=== PATIENT | male | born 1975 | race Caucasian/White ===

== ENCOUNTER → 2018-04-30 14:36 | Outpatient (CLI) | payer OTHER, SELFPAY ==
[2018-04-30 17:44] LABS: Basophils # 0.2 K/mm3 (0-0.2); Eosinophils # 0.8 K/mm3 (0.0-0.4); Eosinophils % 3.5 % (0.1-12.0); Hematocrit 51.7 % (42.0-52.0); Hemoglobin 16.8 g/dL (14.1-18.0); Lymphocytes # 4.1 K/mm3 (0.7-4.5); Lymphocytes % 18.3 K/mm3 (10-50); Mean Corpuscular HGB Conc 32.4 g/dL (31.8-35.4); Mean Corpuscular Hemoglobin 29.3 pg (27.0-31.2); Mean Corpuscular Volume 90.4 fl (80-94); Mean Platelet Volume 8.8 fl (7.4-10.4); Monocytes # 1.5 K/mm3 (0.1-1.0); Monocytes % 6.4 % (1.7-9.3); Neutrophils % 70.8 % (37.0-80.0); Platelet Count 334 K/mm3 (142-424); Red Blood Count 5.72 M/mm3 (4.60-6.20); Red Cell Distribution Width 14.2 % (11.5-17.5); White Blood Count 22.6 K/mm3 (4.8-10.8)
[2018-04-30 17:48] LABS: MANUAL DIFFERENTIAL MANUAL DIFFERENTIAL (MANUAL DIFF)
[2018-04-30 18:30] LABS: Alanine Aminotransferase 46 U/L (12-78); Albumin Level 4.2 gm/dL (3.4-5.0); Alkaline Phosphatase 115 U/L (46-116); Anion Gap 13.8 mEq/L (5-15); Aspartate Amino Transferase 22 U/L (15-37); Bilirubin,Total 0.2 mg/dL (0.2-1.0); Blood Urea Nitrogen 11 mg/dL (7-18); Calcium 9.3 mg/dL (8.5-10.1); Carbon Dioxide 24 mmol/L (21.0-32.0); Chloride 105 mmol/L (98-107); Chol/HDL Ratio 5.1 (1-3.5); Cholesterol 224 mg/dL (140-200); Creatinine,Serum 0.87 mg/dL (0.70-1.30); Estimated Glomerular Filt Rate 95 ml/min (>60); Free T4 (Free Thyroxine) 1.01 ng/dl (0.76-1.46); GFR (African American) 115 ML/MIN (>60); Globulin 4.1 gm/dl (1.3-3.2); Glucose 106 mg/dL (74-106); HDL Cholesterol 44 mg/dL (27-67); LDL Cholesterol 129 mg/dL (0-130); Potassium 4.8 mmoL/L (3.5-5.1); Sodium 138 mmol/L (136-145); Thyroid Stimulating Hormone 0.67 uIU/ml (0.358-3.740); Total Protein,Serum 8.3 gm/dL (6.4-8.2); Triglycerides 255 mg/dL (30-200); VLDL Cholesterol 51 mg/dL (0-40)
[2018-04-30 18:55] LABS: Eosinophils % 8 % (0-3); Lymphocytes % 11 % (10-50); Monocytes % 7 % (2-9); Neutrophils % 73 % (42-76); Platelet Estimate Normal; RBC Morphology Normal; Total Cells Counted 100
[2018-05-02 13:13] LABS: Hep A Ab, IgM Negative (Negative); Hepatitis B Core Antibody IgM Negative (Negative); Hepatitis B Surface Antigen Negative (Negative)
[2018-05-02 17:46] LABS: Hepatitis C Antibody >11.0 s/co ratio (0.0-0.9)
[2018-05-05 06:14] LABS: Vitamin D 25 Hydroxy 23.4 ng/mL (30.0-100.0)
== END ==
PROVIDERS: Visit Provider Emergency Medicine
DX: M54.9 Dorsalgia, unspecified (principal); R53.83 Other fatigue; Z79.899 Other long term (current) drug therapy
CPT/HCPCS: 80053; 80061; 80074; 82652; 84439; 84443; 85007; 85025

== ENCOUNTER 2018-05-17 15:54 | Outpatient (RCR) | payer OTHER, SELFPAY ==
--- NOTE | 2018-05-17 18:07 | HMH.PTOPEV ---
PT Outpatient Evaluation Rehab PT Outpatient Evaluation Start: 05/17/18 16:37 Freq: Status: Active Protocol: Document 05/17/18 16:37 [email or web address] (Rec: 05/17/18 18:07 SHELBY [id number]) Electronically Signed By Sudheer Rocha PT 05/17/18 16:37 Outpatient Therapy Subjective History Subjective History This is the initial physical therapy evaluation for Lukasz Camacho. Pt is a 42 y/o male referred to PT for c/o lumbar pain. Pt reports pain in R side SIJ, low back and lateral hip. Pt reprots pain began insidiously ~ 2 -3 years ago. Pt reports seeing chiropractor for awhile with diminishing results. Pt now reports pain is there all the time. Chief Complaint Pain Stiff Symptom Type Ache Throb Sharp Dull Stabbing Symptoms Relieved By Nothing Symptoms Aggravated By Sitting Standing Bending/Stooping Physical Activity Twisting Walking Prior Functional Limitations None Current Functional Limitations Lifting Housework Standing Sitting Squatting Recreation Activity Walking Bending/Stooping Symptom Description Intermittent Level of pain today (0-10) 4 Pain scale - at its best (0-10) 0 Pain scale - at its worst (0-10) 10 Lumbopelvic Eval Posture Thoracic Spine Posture Standing Position Neutral Lumbar Spine Posture Standing Position Neutral Assistive device Assistive Devices None / NA Palapation tenderness bilateral lumbar spinal tenderness Yes paraspinal tenderness Yes buttock tenderness No tenderness over symphysis pubis No Lumbar/Sacral Palpation Findings Tenderness Lumbar/Sacral Palpation Overall Comment TTP at R PSIS,SIJ, L/S area Accessory Movement L3 right left L4 right left L5 right
== END 2018-05-17 15:55 | disposition home or self-care (01) ==
LOC: PT 15:54
PROVIDERS: Family Provider Internal Medicine Adolescent Medicine; PCP Emergency Medicine; Visit Provider Emergency Medicine
DX: M54.9 Dorsalgia, unspecified (principal)
CPT/HCPCS: 97163

== ENCOUNTER 2018-07-26 13:56 | Outpatient (CLI) | payer SELFPAY ==
--- NOTE | 2018-07-26 14:12 | PC.NURSE ---
HERE FOR DOT PHYSICAL
== END 2018-07-26 15:29 | disposition home or self-care (01) ==
LOC: UTC.OUT 13:58
PROVIDERS: Visit Provider Nurse Practitioner Family
DX: Z02.4 Encounter for examination for driving license (principal)

== ENCOUNTER 2021-02-17 15:42 | Emergency (ER) | payer OTHER, SELFPAY ==
[2021-02-17 17:07] VITALS: BP 126/88; PULSE 89; RESP 19; TEMP 36.8; O2SAT 98; BMI 29.2
--- NOTE | 2021-02-17 17:12 | HMH.EDUTC ---
[facility] [place] Disposition Clinical Impression: Otitis media Qualifiers: Otitis media type: unspecified Laterality: right Qualified Code(s): H66.91 - Otitis media, unspecified, right ear Disposition: Home, Self-Care Condition on Discharge: Good Instructions: Middle Ear Infection, Amoxicillin Additional Instructions: *Monitor Temp, Over the counter Motrin or Tylenol as directed/as needed Tylenol every 4 hours and Motrin every 6 hours (as long as your family doctor has told you that you can take it) for fever or pain. and straight to ER if unable to lower temp less than 101.0 after medication given Take medication as prescribed *Humidifier/Vaporizer *Flonase 2 sprays in each nostril daily but be aware that it may take 2-3 days before you notice improvement * Follow up IMMEDIATELY for new or worsening symptoms or no Noticeable improvement over the next 48-72 hours. 911 for difficulty breathing or swallowing Prescriptions: Amoxicillin [Amoxicillin 875MG Tab] 875 mg PO Q12H #20 tab Transmission Status: Pending to [facility] Fluticasone Propionate [Flonase 50mcg nasal spray 16gm] 1 spr NS DAILY #1 bottle Transmission Status: Pending to [facility] Referrals: Shawn Villegas MD [Primary Care Provider] - As needed Time of Disposition: 17:13 Medical Decision Making - Wilfredo Inquiry Pt receiving controlled substance: No Wilfredo was queried for this patient: No Vital Signs: 02/17/21 17:07 Temperature 98.3 F Temperature Source Oral Pulse Rate [Left] 89 Respiratory Rate 19 Blood Pressure [Right Arm] 126/88 Blood Pressure Mean [Right Arm] 100 02 Sat by Pulse Oximetry 98 Oxygen Delivery Method Room Air Medical Decision Narrative: Patient states that he has taken amoxicillin in the past without reactions [facility] [place] HPI - General Stated complaint: ear ache R ear Time Seen by Provider: 02/17/21 17:12 Mode of Arrival: Ambulatory Source of Information: Patient Limitations: No Limitations Description of Symptoms (Recalled from Triage Doc. by RN): Right ear ache x 1 week HEENT Symptoms (Recalled from RN notes): Yes Resp Symptoms (Recalled from RN notes): No Skin Symptoms (Recalled from RN notes): No MS Symptoms (Recalled from RN notes): No Functional Status (Recalled from RN notes): wnl - History of Present Illness Provider Complaint: Patient state that he has been having pain in his right ear for the last week that has continued to get worse State that today his ear felt sore and was throbbing and felt like it was hurting down into his jaw area when he would open his mouth State that pain was still happening this evening so he came in to get it checked out - Related Data Home Medications Medication Instructions Recorded Confirmed Ergocalciferol (Vitamin D2) 1 cap PO DAILY 05/06/18 05/06/18 [Drisdol 50,000 units (1.25mg) capsule] Previous Rx's Medication Instructions Recorded predniSONE [Prednisone 20mg 20 mg PO BID #10 tab 05/06/18 Tab] Amoxicillin [Amoxicillin 875MG 875 mg PO Q12H #20 tab 02/17/21 Tab] Fluticasone Propionate [Flonase 1 spr NS DAILY #1 bottle 02/17/21 50mcg nasal spray 16gm] Allergies Allergy/AdvReac Type Severity Reaction Status Date / Time No Known Allergies Allergy Verified 02/17/21 17:11 - Worker's Comp Is this a Worker's Comp case?: No [facility] History - Hepatitis A Screen Drug use history?: No High risk sexual behaviors?: No History of sexually transmitted infection?: No Currently employed?: No Childcare worker?: No Do you have indoor plumbing?: Yes Do you have electricity?: Yes Attestation statement:: This patient has been screened for Hepatitis A risk factors. I have reviewed the patient's past medical history: Yes Medical History: Denies:: Cancer, Diabetes Mellitus Type 1, Diabetes Mellitus Type 2, MRSA Other Medical History: Reports: Other Other Surgeries: Yes: No Previous Surgery Amputation: No Fractures: No Com
[2021-02-17 17:21] VITALS: BP 126/88; PULSE 89; RESP 19; TEMP 36.8; O2SAT 98
== END 2021-02-17 17:21 | disposition home or self-care (01) ==
PROVIDERS: Emergency Provider Nurse Practitioner; PCP Emergency Medicine
DX: H66.91 Otitis media, unspecified, right ear (principal)
CPT/HCPCS: 99202; G0463

== ENCOUNTER 2021-03-04 10:27 | Emergency (ER) | payer OTHER, SELFPAY ==
[2021-03-04 10:30] VITALS: BP 124/98; PULSE 74; RESP 20; TEMP 36.9; O2SAT 96; BMI 29.2
--- NOTE | 2021-03-04 10:45 | HMH.EDUTC ---
[facility] [place] Disposition Clinical Impression: Ear pain, right Disposition: Home, Self-Care Condition on Discharge: Good Instructions: Jaw Pain: It's Not Just Stress, Methylprednisolone Additional Instructions: Take medication as prescribed FOllow up with your Family Doctor if no improvement or any worsening of symptoms Follow up with Dentist for further evaluation of pain in your Jaw area to assess for TMJ Return if needed Straight to ER if any life threatening symptoms Continue using Flonase this will help Prescriptions: methylPREDNISolone [Medrol 4mg tab] 4 mg PO DIRECTED #21 tab Transmission Status: Received by [facility] Referrals: Shawn Villegas MD [Primary Care Provider] - As needed Nabil Mccord [Referring] - Time of Disposition: 10:56 Medical Decision Making - Wilfredo Inquiry Pt receiving controlled substance: No Wilfredo was queried for this patient: No Vital Signs: 03/04/21 10:30 03/04/21 10:58 Temperature 98.4 F 98.4 F Temperature Source Oral Pulse Rate 74 Pulse Rate [Right Brachial] 74 Respiratory Rate 20 20 Blood Pressure 124/98 H Blood Pressure [Right Arm] 124/98 H Blood Pressure Mean [Right Arm] 106 Blood Pressure Source [Right Arm] Automatic Cuff Blood Pressure Position [Right Arm] Sitting 02 Sat by Pulse Oximetry 96 Oxygen Delivery Method Room Air Medical Decision Narrative: Discussed xray of jaw area and patient declined at this time Discussed redness from previous otitis media appeared improved however clear fluid noted [facility] [place] HPI - General Stated complaint: Rt ear pain Time Seen by Provider: 03/04/21 10:45 Mode of Arrival: Ambulatory Source of Information: Patient Limitations: No Limitations Description of Symptoms (Recalled from Triage Doc. by RN): PATIENT C/O RIGHT JAW PAIN. STATES HE WAS RECENTLY TREATED FOR AN EAR INFECTION WITH AMOXICILLIN. REPORTS THE EAR IS BETTER, BUT RIGHT JAW IS HURTING HEENT Symptoms (Recalled from RN notes): Yes Resp Symptoms (Recalled from RN notes): No Skin Symptoms (Recalled from RN notes): No MS Symptoms (Recalled from RN notes): No Functional Status (Recalled from RN notes): WNL - History of Present Illness Provider Complaint: Patient state that he was recently treated for ear infection in right ear State that pain from infection is much better but feels like he has some fluid in that ear and feels like when he yawns or moves certain ways he can feel fluid in there like it is moving States that also has pain ever now and then in right jaw area just under his right ear and feelsl like it is full - Related Data Previous Rx's Medication Instructions Recorded methylPREDNISolone [Medrol 4mg 4 mg PO DIRECTED #21 tab 03/04/21 tab] Allergies Allergy/AdvReac Type Severity Reaction Status Date / Time No Known Allergies Allergy Verified 02/17/21 17:11 - Worker's Comp Is this a Worker's Comp case?: No [facility] History - Hepatitis A Screen Drug use history?: No High risk sexual behaviors?: No History of sexually transmitted infection?: No Currently employed?: No Childcare worker?: No Do you have indoor plumbing?: Yes Do you have electricity?: Yes Attestation statement:: This patient has been screened for Hepatitis A risk factors. I have reviewed the patient's past medical history: Yes Medical History: Denies:: Cancer, Diabetes Mellitus Type 1, Diabetes Mellitus Type 2, MRSA Other Medical History: Reports: Other Other Surgeries: Yes: No Previous Surgery Amputation: No Fractures: No Comment: hernia when an - Social History Smoking Status: Current every day smoker Tobacco Type: cigarettes # Packs/Day (cigarettes): 1 Alcohol Intake: never Substance Use Type: former substance user Occupational Status: other Family Hx:: Cancer ROS Obtained: Yes All systems reviewed & no additional complaints, Yes Systems reviewed as appropriate & no additional complaints - Constitutional Constitutional: Reports
[2021-03-04 10:58] VITALS: BP 124/98; PULSE 74; RESP 20; TEMP 36.9; O2SAT 96
== END 2021-03-04 11:00 | disposition home or self-care (01) ==
PROVIDERS: Emergency Provider Nurse Practitioner; PCP Emergency Medicine
DX: H66.91 Otitis media, unspecified, right ear (principal); K02.9 Dental caries, unspecified
CPT/HCPCS: 99202; G0463

== ENCOUNTER → 2022-03-17 14:02 | Outpatient (CLI) | payer OTHER, SELFPAY ==
[2022-03-17 14:00] LABS: Chloride 107 mmol/L (98-107); Potassium 4.9 mmoL/L (3.5-5.1); Sodium 140 mmol/L (136-145)
[2022-03-17 14:03] LABS: Alanine Aminotransferase 38 U/L (12-78); Albumin Level 4.4 g/dl (3.5-5.0); Albumin/Globulin Ratio 1.3 (1.1-1.8); Alkaline Phosphatase 86 U/L (38-126); Aspartate Amino Transferase 37 U/L (17-59); Bilirubin,Total 0.4 mg/dl (0.2-1.3); Blood Urea Nitrogen 6 mg/dl (9-20); Calcium 10.2 mg/dl (8.4-10.2); Cholesterol 212 mg/dl (140-200); Estimated Glomerular Filt Rate 103 ml/min (>60); GFR (African American) 125 ML/MIN (>60); Globulin 3.3 g/dL (1.3-3.2); Glucose 106 mg/dl (74-100); Total Protein,Serum 7.7 g/dl (6.3-8.2); Triglycerides 334 mg/dl (30-150); VLDL Cholesterol 67 mg/dL (0-40)
[2022-03-17 14:04] LABS: Chol/HDL Ratio 6.2 (1-3.5); HDL Cholesterol 34 mg/dl (40-60)
[2022-03-17 14:10] LABS: Basophils # 0.5 K/mm3 (0-0.2); Basophils % 3.2 % (0.1-2.0); Eosinophils # 0.7 K/mm3 (0.0-0.4); Eosinophils % 4.3 % (0.1-12.0); Hematocrit 54.8 % (42.0-52.0); Lymphocytes # 4.3 K/mm3 (0.7-4.5); Lymphocytes % 26.1 % (10-50); Mean Corpuscular HGB Conc 33.2 g/dL (31.8-35.4); Mean Corpuscular Hemoglobin 30.4 pg (27.0-31.2); Mean Corpuscular Volume 91.6 fl (80-94); Monocytes # 0.9 K/mm3 (0.1-1.0); Monocytes % 5.6 % (1.7-9.3); Neutrophils % 60.8 % (37.0-80.0); Platelet Count 338 K/mm3 (142-424); Red Blood Count 5.98 M/mm3 (4.60-6.20); Red Cell Distribution Width 13.6 % (11.5-17.5); White Blood Count 16.4 K/mm3 (4.8-10.8)
[2022-03-17 14:24] LABS: Free T4 (Free Thyroxine) 1.09 ng/dl (0.78-2.19)
[2022-03-17 14:36] LABS: Thyroid Stimulating Hormone 1.11 uIU/mL (0.465-4.68)
[2022-03-17 14:42] LABS: Anion Gap 12.9 mEq/L (5-15); Carbon Dioxide 25 mmol/L (22.0-30.0)
[2022-03-17 15:18] LABS: MANUAL DIFFERENTIAL MANUAL DIFFERENTIAL (MANUAL DIFF)
[2022-03-17 15:54] LABS: Eosinophils % 5 % (0-3); Lymphocytes % 26 % (10-50); Monocytes % 10 % (2-9); Neutrophils % 59 % (42-76); Total Cells Counted 100
[2022-03-17 16:01] LABS: Platelet Estimate Normal; Stomatocytes 1+; Tear Drop Cells 2+
[2022-03-17 18:02] LABS: Hemoglobin 18.2 g/dL (14.1-18.0)
[2022-03-22 23:07] LABS: HCV Genotype Charge YES; Hepatitis C Genotype 3 (.)
== END ==
PROVIDERS: PCP Emergency Medicine; Visit Provider Emergency Medicine
DX: R53.83 Other fatigue; E55.9 Vitamin D deficiency, unspecified; M54.16 Radiculopathy, lumbar region; E66.3 Overweight; Z68.31 Body mass index [BMI] 31.0-31.9, adult; R10.12 Left upper quadrant pain
CPT/HCPCS: 80053; 80061; 84439; 84443; 85007; 85025; 87522; 87902

== ENCOUNTER → 2022-03-21 11:04 | Outpatient (CLI) | payer OTHER, SELFPAY ==
--- NOTE | 2022-03-21 11:09 | MR_ITS ---
FINAL REPORT CLINICAL HISTORY: back pain. LOW BACK PAIN WITH RIGHT BUTTOX AND HIP PAIN [id number]. RIGHT LEG PAIN, NUMBNESS, AND TINGLING. NO INJURY OR TRAUMA. FINDINGS: Multiplanar MR imaging of the lumbar spine was performed without contrast. On the sagittal T2-weighted images, disc degeneration is seen at several levels. The vertebral alignment is normal. There is no evidence of fracture. The conus has an unremarkable appearance. T11-12: Anterior osteophytes are present. There is no significant canal stenosis or neural foraminal narrowing. T12-L1: There is no significant canal stenosis or neural foraminal narrowing. L1-2: An annular bulge is present. There is no significant canal stenosis or neural foraminal narrowing. L2-3: An annular bulge is present. There is no significant canal stenosis or neural foraminal narrowing. L3-4: An annular bulge is present. There is a right foraminal disc protrusion with mild right neural foraminal narrowing. L4-5: An annular bulge is present with mild bilateral neural foraminal narrowing. L5-S1: Small central disc protrusion is present. There is no significant canal stenosis or neural foraminal narrowing. IMPRESSION: Multilevel degenerative disc disease. Right foraminal disc protrusion at L3-4 with mild right neural foraminal narrowing. Small central disc protrusion at L5-S1. Reviewed, Interpreted and Dictated by Jh Koelher III, MD Transcribed by Mady Farr Authenticated and [facility]
== END ==
PROVIDERS: PCP Emergency Medicine; Visit Provider Emergency Medicine
DX: M54.9 Dorsalgia, unspecified (principal); M54.50 Low back pain, unspecified
CPT/HCPCS: 72148; 76376

== ENCOUNTER → 2022-03-28 06:19 | Outpatient (CLI) | payer OTHER, SELFPAY ==
--- NOTE | 2022-03-28 | CA_ITS ---
APPROVED REPORT Exam: Pharmacologic Technologist: Gretchen Lee, Ht: 5 ft 11 in Wt: 224 lbs BSA: 2.21 m2 HR: 74 bpm BP: 121/94 mmHg Rhythm: NSR Medical History Medical History: Diabetes Medications: Aspirin,,,,, Allergies: No known drug allergies Cardiac Risk Factors: Diabetes Stress Test Details Test: LEXISCAN HR Resting HR: 77 bpm Max Heart Rate (APMHR): 172.094834 bpm Max HR Achieved: 111 bpm Target HR (85% APMHR): 146.645153 bpm % of APMHR: 64.53 Recovery HR: 98 bpm BP Resting BP: 121/94 mmHg Max BP: 128/80 mmHg Recovery BP: 122.0/87.0 mmHg ECG Resting ECG: NSR Clinical Reason for Termination: Completed Protocol Exercise duration: 04:02 min Highest Stage Achieved: Exercise capacity: 1.0 METs Stress ECG Conclusion NO CP. <1.5 ST SEGMENT CHANGES NON DIAGNOSTIC Electronically signed by : Dean Orlando MD 03/28/2022 13:38:08
--- NOTE | 2022-03-28 06:20 | NM_ITS ---
APPROVED REPORT Exam: Nuclear Stress Test Indication: chest pain..short of breath..syncope..fatigue Patient Location: Outpatient Stress Tech: Gretchen Lee MS Tech:Alessia Bertrand REESEKizzy RT(R)(N) Ht: 5 ft 11 in Wt: 230 lbs HR: 77 bpm BP: 121/94 mmHg BSA: 2.24 m2 TID: 0.98 BMI: 32.0 History: chest pain..short of breath..syncope..fatigue Procedure: Patient received a 0.4 mg of intravenous Lexiscan, resting heart rate 77 bpm, resting blood pressure 121/94 mmHg, with Lexiscan maximum heart rate achived was 111 bpm which is Less than 85 % of the maximum predicted heart rate and blood pressure was 128/80 mmHg. With Lexiscan, patient denied any complaint of chest pain. Electrocardiogram Resting electrocardiogram shows sinus rhythm, with Lexiscan there is less than 1.[address] segment depression noted from the baseline EKG. The EKG portion of the Lexiscan is nondiagnostic. Cardiac Stress and Resting SPECT Images: Cardiac Stress and Resting SPECT images were obtained using technetium 99m Myoview 30.9 mCi stress and 10.78 mCi at rest. Gated SPECT for analysis of segmental wall motion and calculation of the ejection fraction also done. Prone images were also obtained. Cardiac stress and rest SPECT images show uniform myocardial activity without segmental perfusion abnormality, computer derived ejection fraction is 57% with no regional wall motion abnormality, right ventricle is normal size and contractility. Conclusion: 1. The EKG portion of the Lexiscan is nondiagnostic. 2. No scintigraphic evidence of reversible ischemia seen, computer derived ejection fraction 57% with no regional wall motion abnormality, right ventricle is normal size and contractility. 3. Normal Lexiscan Myoview study. Electronically signed by : Dean Orlando MD 03/28/2022 13:40:42
== END ==
PROVIDERS: PCP Emergency Medicine; Visit Provider Emergency Medicine
DX: R07.9 Chest pain, unspecified (principal)
CPT/HCPCS: 78452; 93017; A9502

== ENCOUNTER → 2022-03-31 08:12 | Outpatient (CLI) | payer OTHER, SELFPAY ==
--- NOTE | 2022-03-31 08:16 | US_ITS ---
FINAL REPORT CLINICAL HISTORY: abdominal pain FINDINGS: Sonographic images of the right upper quadrant were obtained. The pancreas is partially obscured.The liver has an unremarkable appearance.The gallbladder demonstrates a large stone measuring 2.1 cm.There is no evidence of biliary ductal dilatation.The common duct measures 2 mm. The right kidney measures 10 cm and is unremarkable. IMPRESSION: Cholelithiasis. Reviewed, Interpreted and Dictated by Jh Koehler III, MD Transcribed by Jenise Almaraz Authenticated and [facility]
== END ==
PROVIDERS: PCP Emergency Medicine; Visit Provider Emergency Medicine
DX: R10.9 Unspecified abdominal pain (principal)
CPT/HCPCS: 76705

== ENCOUNTER → 2022-04-04 14:55 | Outpatient (CLI) | payer OTHER, SELFPAY ==
[2022-04-06 15:11] LABS: Peripheral Smear Review Scanned Result
== END ==
PROVIDERS: PCP Emergency Medicine; Visit Provider Emergency Medicine
DX: B19.20 Unspecified viral hepatitis C without hepatic coma (principal)
CPT/HCPCS: 36415

== ENCOUNTER → 2022-05-05 07:59 | Outpatient (POV) | payer OTHER, SELFPAY ==
[2022-05-05 08:17] VITALS: BP 122/90; PULSE 68; RESP 18; TEMP 36.4; O2SAT 97; BMI 32.1
--- NOTE | 2022-05-05 08:59 | HMH.PMCON ---
Assessment and Plan (1) Degenerative disc disease, lumbar Status: Acute Category: Medical Code(s): M51.36 - Other intervertebral disc degeneration, lumbar region (2) Sacroiliitis Status: Acute Category: Medical Code(s): M46.1 - Sacroiliitis, not elsewhere classified (3) Greater trochanteric bursitis Status: Acute Category: Medical Code(s): M70.60 - Trochanteric bursitis, unspecified hip (4) Lumbar radiculopathy Status: Acute Category: Medical Code(s): M54.16 - Radiculopathy, lumbar region - Assessment and plan all Dx Assessment and Plan for all problems:: Patient presents today as a new patient with chief complaint of low back pain that radiates to her right lower extremity. Patient cannot tolerate any prolonged sitting, standing, and walking. He has tried and failed conservative therapy in the past which is physical therapy and home exercises for greater than 6 weeks. He used to go to the chiropractor as well that provides some relief. He states that he has been off in his back by himself which helped some of his pain. He does have a positive SI exam and tender to palpation around the SI joint and the greater trochanteric bursa. We will schedule this patient for a right SI injection and right greater trochanteric bursa injection. Due to his history of substance abuse, we will continue to manage this patient with nonopiate modalities. Patient has been instructed to contact the clinic with any concerns before the next appointment. Dr. Gallo has reviewed this note and agrees with this plan of care. This note was dictated using voice recognition software and make contain errors or omissions. HPI - Data of Consult Patient: new to practice Consult date: 05/05/22 Requesting Physician: MARY Juan Primary Care Provider: Dr. Villegas - Consult Narrative Reason for consult: LBP, R hip pain History of present illness: Mr. Camacho is a 46 year old male who presents today as a new patient. Patient is referred by Dr. Villegas. Thank you for the referral. Patient presents today with chronic low back pain that radiates to the right lower extremity. He states that he hurt his back when he was 16. 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 He has a history of substance abuse for several years, choice of drugs are heroin and meth. He states that he has been clean for about 4 years. In regards to his pain, he he cannot tolerate any prolonged sitting, standing, and walking. Patient is also seen walking around the room because he says that it hurts to sit down. He also has difficulty getting up from a sitting position. He also has to lay on the opposite side whenever he goes to sleep. He describes his pain as constant, achy. Denies any loss of bowel and bladder functions. Rates pain today as 9 out of 10. He takes OTC medications for pain. He is not on any scheduled medications. Wilfredo [id number] CC: MARY Juan [facility] History I have reviewed the patient's past medical history: Yes Medical History: Denies:: Cancer, Diabetes Mellitus Type 1, Diabetes Mellitus Type 2, MRSA *Have you ever received a pneumonia vaccine?: No *Have you received a flu vaccine this season?: No Other Medical History: Reports: Other Other Surgeries: Yes: No Previous Surgery Amputation: No Fractures: No - *Social History Smoking Status: Current every day smoker Tobacco Type: cigarettes # Packs/Day (cigarettes): 1 Alcohol Intake: never Substance Use Type: former substance user, heroin, methamphetamine *Occupational Status:: other *Travel in the last 8 weeks: Inside the [place] Family Hx:: Cancer Review of Systems - Review of Systems Review of Systems: General: No recent weight changes, no fever, no sleep disturbances Respiratory: No cough, no shortness of air, no recurring pulmonary infections Cardiovascular/peripheral vascular: No chest pain, no palpitations, no edema, no shortness of breath Gastro
== END ==
PROVIDERS: Visit Provider Student in an Organized Health Care Education/Training Program
DX: M51.16 Intervertebral disc disorders with radiculopathy, lumbar region (principal); M46.1 Sacroiliitis, not elsewhere classified; M70.60 Trochanteric bursitis, unspecified hip
CPT/HCPCS: 99202; G0463

== ENCOUNTER 2022-05-20 08:15 | Day surgery (SDC) | payer OTHER, SELFPAY ==
[2022-05-20 08:22] VITALS: BP 140/86; PULSE 84; RESP 20; TEMP 36.5; O2SAT 98; BMI 32.1
--- NOTE | 2022-05-20 09:01 | P.PCN_ITS ---
- Procedure Date: 05/20/22 Time: 09:01 Anesthesiologist:: Simon Pearson CRNA Complications:: None Pre-procedure Diagnosis:: Right sacroiliitis. Right trochanteric bursitis. Post-procedure Diagnosis:: Same Indications for Procedure:: Patient is a pleasant 46-year-old male that comes our clinic today with right sacroiliitis and right trochanteric bursitis. Patient rates his pain 8/10. Patient describes his pain as constant, dull, aching. Procedure Details:: Procedure: Right sacroliliac joint injection under fluoroscopy Informed consent was obtained and the risk and benefits of the procedure were explained to the patient.~ The patient was taken to the procedure room and noninvasive monitors were placed including noninvasive blood pressure cuff and pulse oximeter.~ The patient was placed prone on the procedure table.~ The~ right hip was cleansed using Betadine as a cleansing solution.~ C-arm fluorosocpy was used to view the right SI joint.~ The skin and subcutaneous tissues were anesthetized using Lidocaine 1.5% and a 25-gauge needle.~ After this, a 22-gauge spinal needle was inserted under fluoroscopic guidance into the inferior aspect of the right SI joint.~ Omnipaque dye was injected and a good spread was seen throughout the joint.~ After this, approximately 5 mL of bupivacaine 0.25% and Depo-Medrol 40 mg was incrementally injected into the sacroiliac joint.~ The patient tolerated the procedure well with no complications.~ The patient was observed in the Pain Clinic, then discharged home neurologically intact.~ Procedure: Right trochanteric bursa injection under fluoroscopy We then moved to the right trochanteric bursa.~ C-arm fluoroscopy was used to view the left greater trochanter.~ The skin and subcutaneous tissues overlying the right greater trochanter were anesthetized using lidocaine, 1.5% and a 25- gauge needle.~ After this, a 22-gauge spinal needle was inserted and advanced until it contacted the right greater trochanter.~ Dye was injected and good spread was seen throughout the right trochanteric bursa. After this, approximately 5 mL of bupivacaine, 0.25% and Depo-Medrol, 40 mg was incrementally injected into the right right trochanteric bursa.~ The patient tolerated the procedure well with no complications. Plan and Disposition:: Patient was discharged without incident.
[2022-05-20 09:05] VITALS: BP 127/90; PULSE 85; RESP 20; O2SAT 97
== END 2022-05-20 09:05 | disposition home or self-care (01) ==
LOC: SC.PAINP 08:16
PROVIDERS: PCP Emergency Medicine; Visit Provider Nurse Anesthetist, Certified Registered
DX: M46.1 Sacroiliitis, not elsewhere classified (principal); M70.61 Trochanteric bursitis, right hip
CPT/HCPCS: 20610; 27096; G0260; J1040

== ENCOUNTER 2022-05-28 09:18 | Emergency (ER) | payer OTHER, SELFPAY ==
[2022-05-28 09:19] VITALS: BP 147/94; PULSE 78; RESP 16; TEMP 36.6; O2SAT 98; BMI 32.1
--- NOTE | 2022-05-28 09:22 | PC.NURSE ---
basin of hibiclins at the bedside for pt to soak finger
--- NOTE | 2022-05-28 09:24 | PC.NURSE ---
YONATHAN CARDENAS at
--- NOTE | 2022-05-28 09:27 | XR_ITS ---
FINAL REPORT CLINICAL HISTORY: Smashed 1st digit of Lt hand x 1 day ago, laceration w pain @ IP joint of 1st digit FINDINGS: Left hand Three views were obtained. There is a small calcification at the 1st metacarpophalangeal of uncertain age, favor chronic. There is a subtle lucency in the tuft of the 1st distal phalanx, nondisplaced fracture is not excluded. The joint spaces appear normal. No soft tissue abnormality is identified. IMPRESSION: Possible nondisplaced fracture of the tuft of the 1st distal phalanx. Reviewed, Interpreted and Dictated by Jh Koehler III, MD Transcribed by Mady Farr Authenticated and [facility]
--- NOTE | 2022-05-28 09:35 | PC.NURSE ---
Pt refuses tetanus immunization. made aware.
--- NOTE | 2022-05-28 09:38 | HMH.EDGENADL ---
ED Disposition Clinical Impression: Thumb laceration Qualifiers: Encounter type: initial encounter Damage to nail status: without damage Foreign body presence: without foreign body Laterality: left Qualified Code(s): S61.012A - Laceration without foreign body of left thumb without damage to nail, initial encounter Disposition: Home, Self-Care Condition on Discharge: Fair Instructions: DI for Laceration Repair Prescriptions: cephALEXin [Cephalexin 750mg Cap] 750 mg PO Q6 5 Days #20 cap Transmission Status: Pending to [id number] Referrals: Shawn Villegas MD [Primary Care Provider] - Paul Delgado MD [Referring] - - Critical Care Critical Care Time: No Attestation: On 05/28/22, the high probability of a clinically significant, sudden or life threatening deterioration of the following system(s) required my full and direct attention, intervention and personal management. The time I documented below is in addition to time spent performing reported procedures but includes the following listed in this critical care notation. Medical Decision Making - Wilfredo Inquiry Pt receiving controlled substance: No Vital Signs: 05/28/22 09:19 Temperature 97.9 F Temperature Source Oral Pulse Rate [Left Radial] 78 Respiratory Rate 16 Blood Pressure [Left Arm] 147/94 H Blood Pressure Mean [Left Arm] 111 Blood Pressure Source [Left Arm] Automatic Cuff Blood Pressure Position [Left Arm] Sitting 02 Sat by Pulse Oximetry 98 Oxygen Delivery Method Room Air Orders (Tests/Meds): ED MEDICATIONS Generic Name Dose Route Start Last Admin Trade Name Freq PRN Reason Stop Dose Admin Cefazolin Sodium 2 gm 05/28/22 11:16 Cefazolin 1gm Vial IM 05/28/22 11:17 ONCE ONE Medical Decision Narrative: In review this is a 46-year-old male who presents with a left thumb injury. Hemodynamically stable and nontoxic-appearing. Its been less than 24 hours since the injury and there is a small area of opening at the distal aspect of the wound that could be conducive to closure. It is overlying the joint so unknown if this is actually an open joint or not. X-ray studies did show a possible distal tuft fracture. With this area this could be possible open joint. I talked to the patient that I would like him to follow-up with a hand surgeon for this but he declines at this time. He says that he would just like to have this closed with a suture and he will follow-up with his PCP. I gave him 2 g of Ancef as well as send him home with a prescription for Keflex. I again strongly encouraged him to follow-up with a hand surgery clinic and I did give him a referral. At this point stable for discharge. Return precautions given. General Adult HPI - General Chief complaint: Wound/Laceration Stated complaint: Lac on L thumb Time Seen by Provider: 05/28/22 09:19 Mode of Arrival: Ambulatory Limitations: No Limitations Description of Symptoms (Recalled from ER Triage Doc. by RN): Pt presents with lac to Lt thumb that he advises ocurred yesterday at approx 4-5pm. States that he smashed it while working on a [employer] - History of Present Illness HPI narrative: Patient is a 46-year-old male who presents after sustaining a left thumb injury. He states that yesterday around 4 or 5:00 he hit his left thumb with a hammer. He says he used a butterfly stitch to close it but since then it has popped off and seems to be draining clear fluid. He denies any fever chills. Denies other injuries. He is not up-to-date on his tetanus and declines any tetanus vaccination at this time. - Related Data Home Medications Medication Instructions Recorded Confirmed Albuterol Sulfate [Albuterol 2 puff IH Q8H 05/05/22 05/20/22 Sulfate Hfa] Aspirin [Low Dose Aspirin EC] 81 mg PO DAILY 05/05/22 05/20/22 bisoproloL fumarate [Bisoprolol 5 mg PO DAILY 05/05/22 05/20/22 Fumarate] Previous Rx's Medication Instructions Recorded cephAL
--- NOTE | 2022-05-28 09:52 | PC.NURSE ---
rad notified of xray order
--- NOTE | 2022-05-28 10:02 | PC.NURSE ---
pt ambulatory back from ct without complications.
--- NOTE | 2022-05-28 11:14 | PC.NURSE ---
YONATHAN CARDENAS at going over rad results
--- NOTE | 2022-05-28 11:14 | PC.NURSE ---
ER at speaking with patient regarding xray results
--- NOTE | 2022-05-28 11:27 | PC.NURSE ---
YONATHAN CARDENAS at suturing
[2022-05-28 11:43] VITALS: BP 141/83; PULSE 74; RESP 17; TEMP 36.6; O2SAT 99
== END 2022-05-28 11:44 | disposition home or self-care (01) ==
PROVIDERS: Emergency Provider Student in an Organized Health Care Education/Training Program; PCP Emergency Medicine
DX: S61.012A Laceration without foreign body of left thumb without damage to nail, initial encounter (principal); W22.8XXA Striking against or struck by other objects, initial encounter; W27.8XXA Contact with other nonpowered hand tool, initial encounter; Z79.82 Long term (current) use of aspirin; Z79.899 Other long term (current) drug therapy; I10 Essential (primary) hypertension; Z72.0 Tobacco use
CPT/HCPCS: 12001; 73130; 99283

== ENCOUNTER → 2022-06-02 09:35 | Outpatient (POV) | payer OTHER, SELFPAY ==
[2022-06-02 09:58] VITALS: BP 135/84; PULSE 73; RESP 20; TEMP 36.6; O2SAT 98; BMI 32.1
--- NOTE | 2022-06-02 10:23 | HMH.PAINSOAP ---
[facility] Pain Management SOAP Note Subjective:: Patient is a pleasant 46-year-old male who presents today for follow-up from right SI injection on 05/20/2022. We are currently treating the patient for right sacroiliitis and right trochanteric bursitis. He states that he has had significant improvement from this last injection. He states that his hip is almost 100% better. He does state that he feels like the injection is still helping. Today he rates his pain a 6 out of 10 and describes the pain all in his low back and right buttocks. He denies any new trauma or injury to the site. He states that this has been an issue for years. He describes this as a constant aching, throbbing sensation that is worse with activity. Patient states he has trouble getting situated when sitting as well as sleeping and has to use a ambulatory aid when going from a squatting position to standing up patient states he has used Tylenol [id number]-ricynri as needed for this pain with minimal improvement. He is also tried lidocaine patches and azxb-eda-obmtfsd creams with no relief of symptoms. He does use a TENS unit that provides moderate relief. He is not currently on any scheduled medications. His Wilfredo is [phone]. It has been reviewed and appropriate. Patient is currently having some GI issues. He states that he does currently have gallstones and is seeing Dr. Joshua for possible removal of his gallbladder as well as a hernia repair. He stated that at this time they are waiting to treat his other symptoms before proceeding with surgery. He is seen Dr. Faulkner in [place] for his stomach upset and other GI related issues. Per patient he is scheduled for upper endoscopy in the near future. Review of Systems: General: No recent weight changes, no fever, no sleep disturbances Respiratory: No cough, no shortness of air, no recurring pulmonary infections Cardiovascular/peripheral vascular: No chest pain, no palpitations, no edema, no shortness of breath Gastrointestinal: No new onset incontinence, normal bowel movements reported Genitourinary: No new onset incontinence Musculoskeletal: Low back pain, right buttocks pain Psychiatric: [Normal mood/affect] Neurological: [Denies weakness in extremities], [denies balance issues] Objective:: Physical Exam: General: Alert and oriented x3, no acute distress, pleasant and cooperative Lungs: Respirations even and unlabored, symmetrical chest expansion Eyes: PERRL Musculoskeletal: Flexion and extension of lumbar [spine] somewhat guarded secondary to pain, [antalgic gait noted]. Extreme point tenderness along right piriformis muscle Neurological: Speech clear, no gross sensory deficit Assessment:: Right sacroiliitis, right trochanteric bursitis, myofascial pain of right piriformis muscle Plan:: Patient has significant pain along his right buttocks at today's visit. He had extreme point tenderness along his right piriformis muscle during today's exam. I have discussed with him regarding having trigger point injections at this site. Risk and benefits were discussed with the patient. He would like to proceed forward with this injection. We will schedule the patient for trigger point injection of his right piriformis muscle. Patient has been instructed to contact the clinic with any concerns before the next appointment. Dr. Gallo has reviewed this note and agrees with this plan of care. This note was dictated using voice recognition software and make contain errors or omissions. [facility] History I have reviewed the patient's past medical history: Yes Medical History: Reports:: Hypertension Denies:: Cancer, Diabetes Mellitus Type 1, Diabetes Mellitus Type 2, MRSA *Have you ever received a pneumonia vaccine?: No *Have you received a flu vaccine this season?: No Other Medical History: Reports: Arthritis, Other Other Surgeries: Yes: No Previous Surgery Amputation: No Fractures: No - *Social History Smoking Status: Current every day
== END ==
PROVIDERS: PCP Emergency Medicine; Visit Provider Nurse Practitioner Family
DX: M46.1 Sacroiliitis, not elsewhere classified (principal); M70.61 Trochanteric bursitis, right hip; M79.18 Myalgia, other site
CPT/HCPCS: 99212; G0463

== ENCOUNTER → 2022-06-09 09:27 | Outpatient (POV) | payer OTHER, SELFPAY ==
[2022-06-09 09:35] VITALS: BP 138/104; PULSE 109; RESP 18; TEMP 36.9; O2SAT 98; BMI 32.1
--- NOTE | 2022-06-09 10:00 | EXP.PAIN.SOA ---
[facility] Pain Management SOAP Note Subjective:: Patient is a pleasant 46-year-old male that presents today for follow-up. We are currently treating the patient for right sacroiliitis and right trochanteric bursitis, myofascial pain of the right piriformis muscle. Today he rates his pain a 7 out of 10. He states this pain is all along his low back on the right side and radiates into his right leg down to his knee. He states the previous injections have provided significant improvement of his symptoms however he feels like he is back at his baseline. Patient denies any new trauma or injury. He states that this has been a problem for years and describes it as a constant aching, throbbing sensation that is worse with activity. Patient does have trouble in a sitting position as well as sleeping due to the pain. He does use qzdz-qlm-djkttdz Tylenol as needed with some relief of symptoms. He also uses a TENS unit that provides moderate relief of his symptoms. He has tried qwyl-wej-cwpcxut creams and lidocaine patches however these did not provide any relief. He is not on any scheduled medications. He would like to see about scheduling a repeat injection at today's date. His Wilfredo is [phone]. Its been reviewed and appropriate. Review of Systems: General: No recent weight changes, no fever, no sleep disturbances Respiratory: No cough, no shortness of air, no recurring pulmonary infections Cardiovascular/peripheral vascular: No chest pain, no palpitations, no edema, no shortness of breath Gastrointestinal: No new onset incontinence, normal bowel movements reported Genitourinary: No new onset incontinence Musculoskeletal: Low back pain, right leg pain Psychiatric: [Normal mood/affect] Neurological: [Denies weakness in extremities], [denies balance issues] Objective:: Physical Exam: General: Alert and oriented x3, no acute distress, pleasant and cooperative Lungs: Respirations even and unlabored, symmetrical chest expansion Eyes: PERRL Musculoskeletal: Flexion and extension of lumbar [spine] somewhat guarded secondary to pain, [antalgic gait noted]. Extreme point tenderness along right SI and right piriformis muscle. positive right Narda's, Sanjay's, compression, Gaenslen's, distraction test Neurological: Speech clear, no gross sensory deficit Assessment:: Right sacroiliitis, right trochanteric bursitis, myofascial pain of piriformis muscle Plan:: Patient is having significant pain along his right low back that radiates into his right lower extremity. In the past he has had a right SI injection that provided significant relief. I have discussed with the patient regarding having a repeat SI injection. Risk and benefits were discussed with the patient. Patient would like to proceed forward with this injection. Patient is already scheduled for a right piriformis TPI on June 20. We will add a right SI injection on to his procedures to be performed. We will follow-up with the patient following these injections and reevaluate his symptoms. Patient has been instructed to contact the clinic with any concerns before the next appointment. Dr. Gallo has reviewed this note and agrees with this plan of care. This note was dictated using voice recognition software and make contain errors or omissions. [facility] Medical History (Updated 05/28/22 @ 11:22 by Otis Kenyon MD) Vitamin D deficiency Social History Smoking Status: Current every day smoker tobacco type: cigarettes packs per day: 1 second hand exposure: No alcohol intake: never substance use type: former substance user, heroin and methamphetamine current occupational status: employed
== END ==
PROVIDERS: PCP Emergency Medicine; Visit Provider Nurse Practitioner Family
DX: M79.18 Myalgia, other site (principal); M46.1 Sacroiliitis, not elsewhere classified; M70.61 Trochanteric bursitis, right hip
CPT/HCPCS: 99212; G0463

== ENCOUNTER 2022-06-20 14:09 | Day surgery (SDC) | payer OTHER, SELFPAY ==
[2022-06-20 14:43] VITALS: BP 128/86; BP 143/89; PULSE 76; PULSE 80; RESP 18; RESP 20; TEMP 36.4; O2SAT 96; O2SAT 98; BMI 32.1
[2022-06-20 15:23] VITALS: BP 121/88; PULSE 77; RESP 18; O2SAT 97
[2022-06-20 15:24] VITALS: BP 121/88; PULSE 77; RESP 18; O2SAT 97
--- NOTE | 2022-06-20 15:51 | P.PCN_ITS ---
Procedure Date: 06/20/22 Time: 15:51 Anesthesiologist:: Angel Gallo MD Complications:: None Pre-procedure Diagnosis:: Sacroiliitis hand piriformis syndrome/sciatica Post-procedure Diagnosis:: Same Indications for Procedure:: This patient is a pleasant 46-year-old white male who we are treating for right- sided hip pain. He is tender over his right SI joint. He has a positive Narda's test on right side. Is positive Carmella test on the right side. Is positive SI joint compression test on the right side. He has positive distraction test on the right side. He also has right-sided piriformis syndrome and right-sided sciatica. We will do a right SI joint injection right piriformis muscle/sciatic nerve block today. Procedure Details:: Right SI joint injection under fluoroscopy Informed consent was obtained and the risks and benefits of the procedure was going to the patient. Patient was taken to the procedure room. Patient was placed prone on the procedure table. The right hip was prepped using ChloraPrep. The skin and subcutaneous tissues were anesthetized using lidocaine. I placed a 22-gauge spinal needle into the inferior aspect of the right SI joint. Needle placement was confirmed with dye. After this we injected 5 mL bupivacaine 0.25% and Depo-Medrol 40 mg into the right SI joint. The patient tolerated the procedure well with no complication. Right piriformis muscle/sciatic nerve block Informed consent was obtained the risk and benefits of the procedure were explained to the patient. The right buttock was prepped using ChloraPrep. A 25-gauge needle was used and we injected 10 mL bupivacaine 0.25% and Depo-Medrol 40 mg into the area of the right sciatic nerve/piriformis muscle. Patient tolerated procedure well no complications. Plan and Disposition:: We will follow-up with this patient in 2 weeks. Will reevaluate symptoms at that time.
== END 2022-06-20 15:35 | disposition home or self-care (01) ==
LOC: SC.PAINP 14:09
PROVIDERS: PCP Emergency Medicine; Visit Provider Anesthesiology
DX: M46.1 Sacroiliitis, not elsewhere classified (principal); M54.31 Sciatica, right side
CPT/HCPCS: 27096; 64445; G0260; J1040; Q9966

== ENCOUNTER → 2022-10-02 13:35 | Outpatient (CLI) | payer OTHER, SELFPAY ==
[2022-10-02 14:28] LABS: INR 0.92 (0.9-1.1)
[2022-10-02 14:29] LABS: Basophils # 0.3 K/mm3 (0-0.2); Basophils % 1.8 % (0.1-2.0); Eosinophils # 0.9 K/mm3 (0.0-0.4); Eosinophils % 5.1 % (0.1-12.0); Hemoglobin 16.6 g/dL (14.1-18.0); Lymphocytes # 4.1 K/mm3 (0.7-4.5); Lymphocytes % 24.4 % (10-50); Mean Corpuscular HGB Conc 33.2 g/dL (31.8-35.4); Mean Corpuscular Hemoglobin 30.3 pg (27.0-31.2); Mean Corpuscular Volume 91.3 fl (80-94); Mean Platelet Volume 9.2 fl (7.4-10.4); Monocytes % 6.1 % (1.7-9.3); Neutrophils # 10.5 K/mm3 (1.8-7.8); Neutrophils % 62.5 % (37.0-80.0); Platelet Count 344 K/mm3 (142-424); Red Blood Count 5.47 M/mm3 (4.60-6.20); Red Cell Distribution Width 13.1 % (11.5-17.5); White Blood Count 16.8 K/mm3 (4.8-10.8)
[2022-10-02 14:32] LABS: MANUAL DIFFERENTIAL MANUAL DIFFERENTIAL (MANUAL DIFF)
[2022-10-02 14:36] LABS: Chloride 107 mmol/L (98-107)
[2022-10-02 14:37] LABS: Potassium 4.5 mmoL/L (3.5-5.1); Sodium 141 mmol/L (136-145)
[2022-10-02 14:39] LABS: Alanine Aminotransferase 22 U/L (12-78); Alkaline Phosphatase 126 U/L (38-126); Aspartate Amino Transferase 34 U/L (17-59); Bilirubin,Total 0.5 mg/dl (0.2-1.3); Blood Urea Nitrogen 10 mg/dl (9-20); Estimated Glomerular Filt Rate 90 ml/min (>60); GFR (African American) 109 ML/MIN (>60)
[2022-10-02 14:40] LABS: Albumin Level 4.4 g/dl (3.5-5.0); Albumin/Globulin Ratio 1.5 (1.1-1.8); Anion Gap 12.5 mEq/L (5-15); Calcium 9.9 mg/dl (8.4-10.2); Carbon Dioxide 26 mmol/L (22.0-30.0); Glucose 93 mg/dl (74-100); Total Protein,Serum 7.4 g/dl (6.3-8.2)
[2022-10-02 16:47] LABS: Eosinophils % 3 % (0-3); Lymphocytes % 25 % (10-50); Monocytes % 1 % (2-9); Neutrophils % 71 % (42-76); Platelet Estimate Normal; RBC Morphology Normal; Total Cells Counted 100
== END ==
PROVIDERS: PCP Emergency Medicine; Visit Provider Surgery
DX: K80.20 Calculus of gallbladder without cholecystitis without obstruction (principal)
CPT/HCPCS: 36415; 80053; 85007; 85025; 85610

== ENCOUNTER 2022-10-20 06:05 | Day surgery (SDC) | payer OTHER, SELFPAY ==
[2022-10-16 09:18] VITALS: BMI 32.1
[2022-10-20] VITALS (11 sets, daily range): BP systolic 124–145; BP diastolic 74–99; PULSE 77–103; RESP 15–18; TEMP 36.1–43; O2SAT 92–98
--- NOTE | 2022-10-20 07:12 | EXP.ANES.CKL ---
[facility] Disclaimer: The information contained in this section may have been updated after the patient was seen, as this information can be updated by other users. Medical History History of torsion of testis Vitamin D deficiency Surgical History Hx of esophagogastroduodenoscopy Family History Other No significant family history Social History Smoking Status: Current every day smoker tobacco type: cigarettes packs per day: 1 second hand exposure: No alcohol intake: never substance use type: former substance user, heroin and methamphetamine current occupational status: employed Travel in the last 8 weeks: None household members: family housing: house lives independently: Yes marital status: single caffeine: Yes special barrie needs: No agree to transfusion: No do you feel safe at home: Yes victim of physical abuse: No victim of emotional abuse: No victim of sexual abuse: No would you like helpful sources: No [facility] Anesthesia Checklist Patient Identification Patient Identification: Arm Band and Verbal (Name & ) Structural Data Admitted From: Home Planned Operative Procedure/s: Lap. andrew with umbilical hernia repair Consent for Planned Operative Procedure(s) Verified: Yes NPO Status Verified Time NPO: 00:00 Additional verifications Anesthesia Reactions: No Hx Blood Transfusions: No Blood Transfusion Reaction: No Airway Assessment C-Spine Mobility Assessed: Yes TMJ Mobility Assessed: Yes Dentition: Poor Dentition Neurological Assessment Level of Consciousness: Awake Hx Seizures: No Numbness or tingling in extremities: No Anesthesia Plan Anesthesia Risk discussed: Yes Anesthesia Plan: Verified ASA Class: III Anesthesia Type: General
--- NOTE | 2022-10-20 08:40 | EXP.OP.NOTE ---
Date of procedure: 10/20/22 Pre-op Diagnosis:: Symptomatic gallstones Tiny umbilical hernia Post-op Diagnosis:: Same Procedure performed:: Laparoscopic cholecystectomy Umbilical hernia repair primary Surgeon:: Jh Joshua MD NUMERICAL CONTROL OPERATOR:: Jcarlos Guzmán Anesthesia: GETA Estimated blood loss (mL): 20 Operative findings:: He had a distended gallbladder with moderate stone. There is some fatty infiltration of the liver. He had a minuscule umbilical hernia with a defect measuring about 6 or 7 mm estimated Operative note:: Patient was taken to the operating room. He was given preoperative intravenous antibiotics. He was placed in a supine position. General anesthesia was induced via endotracheal tube. Abdomen was prepped and draped in the standard surgical fashion. Subumbilical skin incision was made. Dissection was carried down to the fascia and around the hernia sac. Hernia sac was dissected free from the umbilical subdermis. Extraneous herniated fatty tissue from the hernia was excised using electrocautery. He had an extremely tiny defect measuring about 6 or 7 mm. Cedillo blunt trocar was inserted and secured with fascial stay sutures. CO2 pneumoperitoneum was achieved to 15 mmHg. Laparoscopic surveillance was carried out. He had fatty infiltration of the liver. Gallbladder was grasped retracted anteriorly and superiorly over the dome of the liver. There were some adhesions of surrounding fatty tissues to the neck of the gallbladder. These were taken down using blunt dissection. Infundibulum/Branch's pouch of the gallbladder was retracted anterior laterally. There were some branching veins around the cystic duct and neck of the gallbladder. Ultimately cystic duct and cystic artery were identified and isolated in the critical view of safety. Cystic duct was multiply clipped and sharply divided. Cystic artery was carefully coagulated with MACY ultrasonic robotic jaylene and divided. Gallbladder was dissected free from the liver in a retrograde fashion using MACY ultrasonic harmonic jaylene. Gallbladder was placed within an Endo Catch retrieval device and removed from the peritoneal cavity via the umbilical trocar site which required some extension of the fascial defect for delivery. Gallbladder fossa was inspected for hemostasis. Limited use of electrocautery was used on the gallbladder fossa to ensure hemostasis. Trochars were then removed as CO2 pneumoperitoneum was evacuated. Fascia at the umbilicus was closed with multiple interrupted 0 Ethibond sutures. Local anesthetic was infiltrated. Umbilical dermis was reapproximated to the underlying fascia with a 2-0 Vicryl. Deep dermal tissue was reapproximated with 2-0 Vicryl. Skin incision was closed with 4-0 Monocryl in a subcuticular fashion. Dermabond and dressings were applied. Condition: stable Disposition: PACU Complications:: None immediately apparent
--- NOTE | 2022-10-20 08:48 | P.PNANES_ITS ---
[facility] Anesthesia Record Part I Anesthesia Record I Intake, IV Amount: 1,000 Estimated blood loss (mL): 20 Urine output (mL): 0 Blood Pressure: 134/88 SaO2: 92 Pulse Rate: 103 Respiratory Rate: 18 Temperature: 98.6 F Patient is:: Drowsy and Oral/Nasal airway Stable to PACU at:: 08:47
--- NOTE | 2022-10-26 09:17 | P.PNANES_ITS ---
[facility] Anesthesia Record Part II Anesthesia Record Part II Discharge Time: 09:27 Destination: Surgical Day Care (OP Surgery) PACU nurse assessment reviewed?: Yes Patient Condition:: Good Anesthesia Complications:: None Swallowing reflex intact?: Yes Cyanosis?: No Blood Pressure: 145/74 Pulse Rate: 93 Temperature: 97 F Mental Status: Alert & Oriented Pain level:: 7 Nausea and/or vomitting:: None Intake, IV Amount: 0
[2022-10-26 09:19] VITALS: BP 145/74; PULSE 93; TEMP 36.1
== END 2022-10-20 10:23 | disposition home or self-care (01) ==
PROVIDERS: PCP Emergency Medicine; Visit Provider Surgery
PROC: 0FT44ZZ Resection of Gallbladder, Percutaneous Endoscopic Approach (ICD-10-PCS; CPT 47562; principal; 2022-10-20 07:30)
DX: K80.10 Calculus of gallbladder with chronic cholecystitis without obstruction (principal); K42.9 Umbilical hernia without obstruction or gangrene; F17.210 Nicotine dependence, cigarettes, uncomplicated; Z79.899 Other long term (current) drug therapy
CPT/HCPCS: 47562; 49591; 96374; J2405

== ENCOUNTER → 2022-11-14 12:57 | Outpatient (CLI) | payer OTHER, SELFPAY ==
[2022-11-14 13:01] LABS: Campylobacter Not Detected (NotDetected); Clostridium Difficile A/B, PCR Not Detected (NotDetected); Plesimonas Shigalloides, PCR Not Detected (NotDetected)
[2022-11-14 13:02] LABS: Adenovirus F 40/41, stool Not Detected (NotDetected); Astrovirus Not Detected (NotDetected); Cryptosporidium Not Detected (NotDetected); Cyclospora Cayetanesis Not Detected (NotDetected); Entamoeba histolytica Not Detected (NotDetected); Enteroaggregative E coli Not Detected (NotDetected); Enteropathogenic E coli Not Detected (NotDetected); Enterotoxigenic E coli Not Detected (NotDetected); Giardia lamblia Not Detected (NotDetected); Norovirus Not Detected (NotDetected); Rotavirus A Not Detected (NotDetected); Salmonella, PCR Not Detected (NotDetected); Sapovirus Not Detected (NotDetected); Shiga-like toxin E coli Not Detected (NotDetected); Shigella Enterovasive E coli Not Detected (NotDetected); Vibrio Cholerae Not Detected (NotDetected); Vibrio, PCR Not Detected (NotDetected); Yersinia Entercolitica, PCR Not Detected (NotDetected)
== END ==
PROVIDERS: PCP Emergency Medicine; Visit Provider Surgery
DX: R19.7 Diarrhea, unspecified (principal)
CPT/HCPCS: 87506

== ENCOUNTER → 2023-01-07 11:15 | Outpatient (CLI) | payer OTHER, SELFPAY ==
[2023-01-07 12:02] LABS: Basophils # 0.3 K/mm3 (0-0.2); Basophils % 1.8 % (0.1-2.0); Eosinophils # 0.8 K/mm3 (0.0-0.4); Eosinophils % 5.4 % (0.1-12.0); Hematocrit 53.4 % (42.0-52.0); Hemoglobin 17.5 g/dL (14.1-18.0); Lymphocytes # 3.7 K/mm3 (0.7-4.5); Mean Corpuscular HGB Conc 32.8 g/dL (31.8-35.4); Mean Corpuscular Hemoglobin 29.4 pg (27.0-31.2); Mean Corpuscular Volume 89.7 fl (80-94); Mean Platelet Volume 8.7 fl (7.4-10.4); Monocytes % 6.2 % (1.7-9.3); Neutrophils # 9.6 K/mm3 (1.8-7.8); Neutrophils % 62.6 % (37.0-80.0); Platelet Count 295 K/mm3 (142-424); Red Blood Count 5.95 M/mm3 (4.60-6.20); Red Cell Distribution Width 13.5 % (11.5-17.5); White Blood Count 15.3 K/mm3 (4.8-10.8)
[2023-01-07 12:09] LABS: MANUAL DIFFERENTIAL MANUAL DIFFERENTIAL (MANUAL DIFF)
[2023-01-07 12:47] LABS: Eosinophils % 2 % (0-3); Lymphocytes % 23 % (10-50); Monocytes % 4 % (2-9); Neutrophils % 71 % (42-76); Total Cells Counted 100
[2023-01-07 12:48] LABS: Platelet Estimate Normal; RBC Morphology Normal
[2023-01-07 12:54] LABS: Alanine Aminotransferase 28 U/L (12-78); Albumin Level 4.5 g/dl (3.5-5.0); Albumin/Globulin Ratio 1.5 (1.1-1.8); Alkaline Phosphatase 119 U/L (38-126); Anion Gap 14.3 mEq/L (5-15); Aspartate Amino Transferase 29 U/L (17-59); Bilirubin,Total 0.6 mg/dl (0.2-1.3); Blood Urea Nitrogen 7 mg/dl (9-20); Carbon Dioxide 22 mmol/L (22.0-30.0); Chloride 104 mmol/L (98-107); Estimated Glomerular Filt Rate 90 ml/min (>60); GFR (African American) 109 ML/MIN (>60); Glucose 117 mg/dl (74-100); Potassium 4.3 mmoL/L (3.5-5.1); Sodium 136 mmol/L (136-145); Total Protein,Serum 7.5 g/dl (6.3-8.2)
== END ==
PROVIDERS: PCP Emergency Medicine; Visit Provider Physician Assistant
DX: B18.2 Chronic viral hepatitis C (principal)
CPT/HCPCS: 36415; 80053; 85007; 85025; 87522

== ENCOUNTER 2023-07-24 16:53 | Emergency (ER) | payer OTHER, SELFPAY ==
[2023-07-24 16:54] VITALS: BP 132/89; PULSE 93; RESP 18; TEMP 37.1; O2SAT 99; BMI 29.8
--- NOTE | 2023-07-24 17:15 | EXP.UTC ---
Discharge Plan Disposition Patient Disposition: Home, Self-Care Condition: Good Prescriptions Prescriptions: New azithromycin [Zithromax] 250 mg tablet 250 mg PO UD DOSE PK Qty: 6 0RF Rx Instructions: Take two (2) tablets today, then one (1) tablet days #2 thru #5 benzonatate [benzonatate] 100 mg capsule 100 mg PO TIDP PRN (Reason: Cough) Qty: 30 0RF No Action prednisone 20 mg tablet 20 mg PO BID 5 Days Qty: 10 0RF cyclobenzaprine 10 mg tablet 10 mg PO TID PRN (Reason: muscle spasm) Qty: 60 0RF albuterol sulfate 90 mcg/actuation HFA aerosol inhaler 2 puff inhalation Q8H PRN (Reason: shortness of breath or wheezing) Qty: 8.5 3RF Rx Instructions: patient needs an appt before anymore refills cetirizine 10 mg Tablet 10 mg PO DAILY PRN (Reason: allergies) ibuprofen 400 mg Tablet 400 mg PO DAILY Referrals Follow up/Referrals: Shawn Villegas MD [Primary Care Provider] - See instructions Activity Restrictions/Add. Instructions Additional Instructions/Restrictions: Drink plenty of fluids. Take tylenol or ibuprofen for pain or fever. Take the medications as directed. Follow up with your regular doctor. GO TO THE ER FOR ANY WORSENING SYMPTOMS Clinical Impressions Clinical Impression: Pharyngitis, Acute viral syndrome Instructions Patient Instructions: DI for Pharyngitis/Tonsillopharyngitis -- Adult, DI for Viral Syndrome Discharge ED Provider: Homer Johnson [facility] General Stated complaint: sore throat, bilateral ear pain, cough, congestion Time Seen by Provider: 07/24/23 17:15 Related Data Home Medications Medication Instructions Recorded Confirmed cetirizine 10 mg tablet 10 mg PO DAILY PRN allergies 10/16/22 04/24/23 ibuprofen 400 mg tablet 400 mg PO DAILY Pain 10/16/22 04/24/23 Previous Rx's Medication Instructions Recorded albuterol sulfate 90 mcg/actuation 2 puff inhalation Q8H PRN 12/18/22 aerosol inhaler shortness of breath or wheezing #8.5 grams cyclobenzaprine 10 mg tablet 10 mg PO TID PRN muscle spasm #60 04/24/23 tabs prednisone 20 mg tablet 20 mg PO BID 5 days #10 tabs 04/24/23 azithromycin 250 mg tablet 250 mg PO UD DOSE PK #6 tabs 07/24/23 (Zithromax) benzonatate 100 mg capsule 100 mg PO TIDP PRN Cough #30 caps 07/24/23 Allergies Allergy/AdvReac Type Severity Reaction Status Date / Time No Known Allergies Allergy Verified 07/24/23 17:23 [facility] Disclaimer: The information contained in this section may have been updated after the patient was seen, as this information can be updated by other users. Medical History History of torsion of testis Vitamin D deficiency Surgical History History of hernia repair History of laparoscopic cholecystectomy Hx of esophagogastroduodenoscopy Family History Other No significant family history Social History Smoking Status: Current every day smoker tobacco type: cigarettes packs per day: 1 second hand exposure: No alcohol intake: never substance use type: former substance user, heroin and methamphetamine current occupational status: employed Travel in the last 8 weeks: None household members: family housing: house lives independently: Yes marital status: single caffeine: Yes special barrie needs: No agree to transfusion: No do you feel safe at home: Yes victim of physical abuse: No victim of emotional abuse: No victim of sexual abuse: No would you like helpful sources: No ROS Obtained: Yes All systems reviewed & no additional complaints except as documented Constitutional Constitutional: Reports chills and Reports fever(s) Eyes Eyes: Denies eye discharge ENT Ears, Nose, Mouth, and Throat: Reports
[2023-07-24 17:39] LABS: UTC Strep Screen (Rapid) Negative (Negative)
[2023-07-24 17:40] LABS: UTC Influenza A Antigen Negative (Negative); UTC Influenza B Antigen Negative (Negative)
[2023-07-24 17:52] VITALS: BP 132/89; PULSE 93; RESP 18; TEMP 37.1; O2SAT 99
== END 2023-07-24 17:52 | disposition home or self-care (01) ==
PROVIDERS: Emergency Provider Nurse Practitioner Family; PCP Emergency Medicine
DX: J02.9 Acute pharyngitis, unspecified (principal); B34.9 Viral infection, unspecified; H92.03 Otalgia, bilateral; E55.9 Vitamin D deficiency, unspecified; F17.210 Nicotine dependence, cigarettes, uncomplicated
CPT/HCPCS: 87635; 87804; 87880; 99212; 99214; G0463

== ENCOUNTER 2024-04-05 18:00 | Outpatient (CLI) | payer OTHER, SELFPAY ==
[2024-04-05 18:47] LABS: Basophils # 0.1 K/mm3 (0-0.2); Eosinophils # 0.5 K/mm3 (0.0-0.4); Eosinophils % 3.9 % (0.1-12.0); Hemoglobin 15.6 g/dL (14.1-18.0); Lymphocytes # 3.8 K/mm3 (0.7-4.5); Lymphocytes % 30.5 % (10-50); Mean Corpuscular Hemoglobin 31.2 pg (27.0-31.2); Mean Corpuscular Volume 91.7 fl (80-94); Mean Platelet Volume 9.5 fl (7.4-10.4); Monocytes # 0.8 K/mm3 (0.1-1.0); Monocytes % 6.7 % (1.7-9.3); Neutrophils # 7.2 K/mm3 (1.8-7.8); Neutrophils % 57.9 % (37.0-80.0); Platelet Count 361 K/mm3 (142-424); Red Blood Count 5.01 M/mm3 (4.60-6.20); Red Cell Distribution Width 13.5 % (11.5-17.5); White Blood Count 12.4 K/mm3 (4.8-10.8)
[2024-04-05 19:23] LABS: Alanine Aminotransferase 20 U/L (12-78); Albumin Level 4.6 g/dl (3.5-5.0); Albumin/Globulin Ratio 1.5 (1.1-1.8); Alkaline Phosphatase 77 U/L (38-126); Anion Gap 14.2 mEq/L (5-15); Aspartate Amino Transferase 29 U/L (17-59); Bilirubin,Total 0.4 mg/dl (0.2-1.3); Blood Urea Nitrogen 19 mg/dl (9-20); Calcium 9.9 mg/dl (8.4-10.2); Carbon Dioxide 26 mmol/L (22.0-30.0); Chloride 106 mmol/L (98-107); Chol/HDL Ratio 5.2 (1-3.5); Cholesterol 222 mg/dl (140-200); Estimated Glomerular Filt Rate 79 ml/min (>60); GFR (African American) 96 ML/MIN (>60); Glucose 95 mg/dl (74-100); HDL Cholesterol 43 mg/dl (40-60); Potassium 4.2 mmoL/L (3.5-5.1); Sodium 142 mmol/L (136-145); Total Protein,Serum 7.6 g/dl (6.3-8.2); Triglycerides 168 mg/dl (30-150); VLDL Cholesterol 34 mg/dL (0-40)
[2024-04-05 19:34] LABS: Direct LDL Cholesterol 133.54 mg/dL (100-129)
[2024-04-05 19:42] LABS: 25-OH Vitamin D, Total 46.7 ng/mL (30-100)
[2024-04-05 19:55] LABS: Prostate Specific Ag Screen 0.8 ng/ml (0.0-4.0)
== END 2024-04-05 23:59 | disposition home or self-care (01) ==
LOC: LAB.DROPOF 04-06 09:28
PROVIDERS: PCP Nurse Practitioner Family; Visit Provider Nurse Practitioner Family
DX: R06.02 Shortness of breath (principal); J44.9 Chronic obstructive pulmonary disease, unspecified; M54.16 Radiculopathy, lumbar region; M54.50 Low back pain, unspecified; M51.36 Other intervertebral disc degeneration, lumbar region; Z72.0 Tobacco use
CPT/HCPCS: 80050; 80053; 80061; 82306; 84443; 85025; G0103

== ENCOUNTER 2024-04-12 14:36 | Outpatient (CLI) | payer OTHER, SELFPAY ==
--- NOTE | 2024-04-12 14:43 | CA_ITS ---
APPROVED REPORT EXAM: Comprehensive 2D, Doppler, and color-flow Echocardiogram Sewage Screen Operator: Anitra Waters RT(R) Ht: 5 ft 11 in Wt: 183lbs BSA: 2.03 BP: 130/76 mmHg Indications: SOB, Smoker, COPD, pre diabetic, HTN 2D Dimensions LA Volume 28.70 mL LA Volume Index 14.14 mL/m2 (M/F) 16-34 EF AP4 41.90 % GL Strain -16.1 % M-Mode Dimensions RVDd 2.96 cm (0.9-2.6) LA Diam 3.74 cm (1.9-4.0) LVDd 4.67 cm (3.5-5.7) LVDs 3.46 cm (3.5-5.7) IVSd 1.06 cm (0.6-1.1) PWd 1.03 cm (0.6-1.1) EF (Teich) 50.90% FS 25.90% EDV (Teich) 100.80 mL ESV (Teich) 49.50 mL LV Diastology E Decel Time 197 (160-240 msec) E/A Ratio 1.1 Mitral Valve MV E Max Alexis. 82.0 (40-130 cm/s) MV A Velocity 73.0 (40-130 cm/s) E/A Ratio 1.12 MV PHT 58.0 ms Left Ventricle The left ventricle is normal size. The left ventricular systolic function is normal. The left ventricular ejection fraction is within the normal range. There is increased LV wall thickness. There is normal LV segmental wall motion. The left ventricular diastolic function is normal. LVEF is 55%. Right Ventricle The right ventricle is normal size. The right ventricular systolic function is normal. Atria The left atrium size is normal. The right atrium size is normal. There is no Doppler evidence of interatrial shunt. Aortic Valve The aortic valve opens well. There is no aortic valvular stenosis. No aortic regurgitation is present. Mitral Valve The mitral valve is normal in structure. No evidence of mitral valve stenosis. Mild mitral regurgitation. Tricuspid Valve The tricuspid valve leaflets are thin and pliable. Trace tricuspid regurgitation. There is insufficient TR jet to estimate RVSP. Pulmonic Valve The pulmonary valve is normal in structure. Trace pulmonic regurgitation. Great Vessels The aortic root is normal in size. The ascending aorta is normal in size. IVC is normal in size and collapses >50% with inspiration. Pericardium There is no pericardial effusion. Other Information Study Quality: Fair Conclusion Normal biventricular systolic function. Mild MR. Electronically signed by : Sandra Moreland MD 04/17/2024 23:24:50
== END 2024-04-12 23:59 | disposition home or self-care (01) ==
LOC: RT 14:38
PROVIDERS: PCP Internal Medicine; Visit Provider Nurse Practitioner Family
DX: R06.02 Shortness of breath (principal); I10 Essential (primary) hypertension; J44.9 Chronic obstructive pulmonary disease, unspecified; F17.210 Nicotine dependence, cigarettes, uncomplicated
CPT/HCPCS: 93306

== ENCOUNTER 2024-05-19 17:00 | Outpatient (RCR) | payer OTHER, SELFPAY ==
--- NOTE | 2024-05-02 18:07 | HMH.PTOPEV ---
PT Outpatient Evaluation Rehab PT Outpatient Evaluation Start: 05/02/24 16:56 Freq: Status: Active Protocol: Document 05/02/24 16:56 JORDY (Rec: 05/02/24 18:07 JORDY [id number]) E-signed By Luanne Campa, PT Outpatient Therapy Subjective History Subjective History Pt is a 48 y/o male who reports chronic low back and R buttocks pain for ~15 years. Pt reports burning, sharp, stabbing nature of pain in the right buttocks and tightness/ stiffness of the central low back. Pt denies numbness/ tingling of the leg but does reports a sense of weakness in the right leg. Pt reports the right leg feels like it may give out on him at times, states he has fallen down stairs years ago due to this. Pt denies b/b dysfunction. Pt reports pain is aggravated by sitting, performing transfers, heavy lifting, kneeling/squatting, prolonged standing/walking and bending. Pt reports he is taking prescribed muscle relaxers and Ibuprofen which help minimally with pain. Pt denies having recent imaging of his low back. Pt had a lumbar spine MRI in 2021 with impression of Multilevel degenerative disc disease. Right foraminal disc protrusion at L3-4 with mild right neural foraminal narrowing. Small central disc protrusion at L5-S1. Medical History: Pre-diabetes, Vitamin D deficiency New diagnosis of cancer in past 12 No months? Chief Complaint Pain,Stiff,Catches/Locks, Weakness Symptom Type Sharp,Stabbing,Burning Symptoms Relieved By Prescription Meds Symptoms Aggravated By Sitting,Standing,Bending/ Stooping,Physical Activity, Walking,Lifting Current Functional Limitations Lifting,Standing,Sitting, Squatting,Walking,Bending/ Stooping Symptom Description Constant but Variable Level of pain today (0-10) 7 Pain scale - at its best (0-10) 6 Pain scale - at its worst (0-10) 9 Lumbopelvic Eval Posture Thoracic Spine Posture Standing Position Increased Kyphosis Lumbar Spine Posture Standing Position Neutral Palapation tenderness bilateral lumbar spinal tenderness Yes: L3-L5 paraspinal tenderness Yes: L>R buttock tenderness Yes: B piriformis mm Lumbar/Sacral Palpation Findings Tenderness Lumbar/Sacral Palpation Overall Comment 2-3/4 TTP Accessory Movement L-spine Vertebrae Accessory Movements Central P/A [place],Right P/A that Elicit Symptoms [place] L3 bilateral L4 bilateral L5 bilateral Range of Motion Lumbar Spine Active Flexion Range of 35 Motion (degrees) Lumbar Spine Active Extension Range of 20 Motion (degrees) Left Lumbar Spine Lateral Flexion Active 10 Range of Motion (degrees) Right Lumbar Spine Lateral Flexion 10 Active Range of Motion (degrees) Manual Muscle Test Right Knee Extension Strength Grade 5 Normal Knee Flexion Strength Grade 5 Normal Hip Flexion Strength Grade 4 Good Hip Abduction Strength Grade 4 Good Hip Extension Strength Grade 4- Good- Ankle Dorsiflexion Strength Grade 5 Normal Left Knee Extension Strength Grade 5 Normal Knee Flexion Strength Grade 5 Normal Hip Flexion Strength Grade 5 Normal Hip Abduction Strength Grade 5 Normal Hip Extension Strength Grade 5 Normal Ankle Dorsiflexion Strength Grade 5 Normal DTR Rt Patellar 1+ Lt Patellar 2+ Rt Gastroc/Soleus 2+ Lt Gastroc/Soleus 1+ Altered Sensation Bilateral Comment equal and intact to light touch sensation Special Tests Hip Simon (ZHENG) Test Negative Left,Negative Right Hip Piriformis Test Negative Left,Negative Right Sciatic Nerve Tension Test Negative Left,Positive Right Unilateral Straight Leg Raise (Lasegue) Negative Left,Positive Right Test Lumbar [place] Distraction Test/Manual Positive Traction Oswestry Index Section 1 Pain Intensity The pain comes and goes and is severe Section 2 Personal Care (Washing,Dresing) change my way of washing or dressing in order to avoid pain Section 3 Lifting I can lift heavy weights, but it gives me extra pain Section 4 Walking I have some pain when walking but it does not increase with distance Section 5 Sitting Pain prevents me from sitting for more than 10 minutes Section 6 Standing I cannot stand more than 1/2 hour without increasing pain Section 7 Sleeping Because of my pain, my normal night's sleep is less than 6 hours sleep Section 8 Social Life My social life is normal but increases the degree of pain Section 9 Traveling I get extra pain while traveling, but it does not compel me to seek al Section 10 Changing Degreee of Pain My pain is gradually getting worse Score and Risk Level Oswestry Sc 22 Oswestry Risk Level Moderate Disability Outpatient Therapy Assessment Impairments Problems/Impairmments Palpation Tenderness,Impaired Range of Motion,Impaired Strength,Impaired Standing, Impaired Sitting,Impaired Driving,Impaired Lifting, Impaired Squatting,Impaired Bending,Impaired Work Activities,Subjective C/O Pain ,Impaired Self Care/Self Management Prognosis Rehab Potential Good Clinical Impression Consistent with Diagnosis Yes Short Term Goals Number of Weeks 3 Increase Range of Motion Yes: Improve lumbar AROM flex to at least 60 Improve Oswestry Score Yes Decrease Subjective C/O Pain Yes: Improve pain at worst to 7/10 to improve overall QOL Improve Self Care/Self Management Yes Patient to be Ind w/ HEP Yes Lock Up Worker Goals Number of Weeks 6 Increase Range of Motion Yes: Improve lumbar AROM flex to at least 80, LF to 15-20 Increase Strength Yes: Improve RLE MMT to 4+/5 grossly to assist with function Improve Oswestry Score Yes: Improve score to 15 or less to improve overall QOL Decrease Subjective C/O Pain Yes: Improve pain at worst to 5/10 to improve overall QOL Outpatient Therapy Plan of Care Treatment Plan May Include Therapeutic Exercise Including Home Yes Exercise Program Manual Therapy Techniques Yes Neuromuscular Re-education Yes Therapeutic Activities to Return to Yes Previous Functional/Work Level ADL/Self Care Education Yes Mechanical Traction Yes Dry Needling Yes Thermal Modalities Yes Electrical Stimulation Yes Ultrasound/Phonophoresis Yes Massage Yes Eval/Re-Eval Yes Frequency Times per week 2 Duration Number of Weeks 4-6 Addendums This patient is a candidate for social No or vocational rehab? Patient/Guardian verbally acknowledges Yes understanding of treatment program and consents to further treatment? Patient/Guardian verbally acknowledges Yes understanding of diagnosis, prognosis and goals for treatment? Eval Complexity PT Charges 91018 - Low Complexity Shoulder/Elbow Eval Shoulder Objective Measurements Elbow Objective Measurements PHYSICIAN CERTIFICATION: I certify the specified therapy services for Lukasz Camacho are required, authorized, and reviewed every 30 days.
== END 2024-05-19 17:05 | disposition home or self-care (01) ==
LOC: PT 17:00
PROVIDERS: Visit Provider Nurse Practitioner Family
DX: M25.551 Pain in right hip (principal); M54.16 Radiculopathy, lumbar region; M54.50 Low back pain, unspecified
CPT/HCPCS: 97014; 97110; 97140; 97163; G0283

== ENCOUNTER 2024-08-03 16:47 | Emergency (ER) | payer OTHER, SELFPAY ==
[2024-08-03 16:48] VITALS: BP 142/96; PULSE 75; RESP 13; TEMP 36.8; O2SAT 98; BMI 25.7
--- NOTE | 2024-08-03 16:51 | ED_ITS ---
Discharge Plan Disposition Patient Disposition: Home, Self-Care Condition: Good Prescriptions Prescriptions: No Action montelukast 10 mg tablet 10 mg PO DAILY albuterol sulfate 90 mcg/actuation HFA aerosol inhaler 2 puff inhalation Q8H PRN (Reason: shortness of breath or wheezing) Qty: 8.5 3RF Rx Instructions: patient needs an appt before anymore refills clonidine HCl 0.1 mg tablet 0.1 mg PO TID Qty: 90 0RF guanfacine 1 mg tablet extended release 24 hr 1 mg PO HS Qty: 30 1RF lamotrigine 50 mg tablet extended release 24hr 50 mg PO DAILY Qty: 30 2RF baclofen 10 mg tablet See Rx Instructions .ROUTE .COMPLEX Qty: 90 0RF Dose Instruction: Take 1 tablet by mouth three times daily as needed for muscle spasm Rx Instructions: Take 1 tablet by mouth three times daily as needed for muscle spasm Referrals Follow up/Referrals: Odell Yoo, [Primary Care Provider] - See instructions Activity Restrictions/Add. Instructions Additional Instructions/Restrictions: I removed all visible signs of the foreign body in your cornea. Please call my eye doctor in the morning for a follow-up appointment here in [place] within 48 hours. Utilize the ointment that I gave you twice a day. Return to ER for any worsening signs or symptoms as needed Clinical Impressions Clinical Impression: Acute foreign body of left cornea Qualifiers: Encounter type: initial encounter Qualified Code(s): T15.02XA - Foreign body in cornea, left eye, initial encounter Instructions Patient Instructions: DI for Corneal Foreign Body-Eye Print Language Print Language: Greek Discharge ED Provider: Leon Hurtado General Adult HPI <MARY Orozco - Last Filed: 08/03/24 17:23> General Chief complaint: Eye Problems Stated complaint: AO 08-03 something in left eye Time Seen by Provider: 08/03/24 16:51 History of Present Illness HPI narrative: Patient presents for evaluation of a foreign body to his left cornea. Patient was utilizing an angle grinder gear felt something strike his eye however it went away. However today this morning when he walked outside a lianna of wind hit his left eye and he began to hurt and has hurt ever since. He denies any loss of vision but reports difficulty in trying to wear his glasses due to the discomfort in his left eye. Related Data Home Medications ?Medication ?Instructions ?Recorded ?Confirmed montelukast 10 mg tablet 10 mg PO DAILY 04/05/24 04/05/24 Previous Rx's ?Medication ?Instructions ?Recorded albuterol sulfate 90 mcg/actuation 2 puff inhalation Q8H PRN 12/18/22 aerosol inhaler shortness of breath or wheezing #8.5 grams clonidine HCl 0.1 mg tablet 0.1 mg PO TID #90 tabs 06/10/24 guanfacine 1 mg tablet,extended 1 mg PO HS #30 tabs 06/10/24 release 24 hr lamotrigine 50 mg tablet,extended 50 mg PO DAILY #30 tabs 06/10/24 release 24 hr baclofen 10 mg tablet See Rx Instructions .Route 07/22/24 .COMPLEX #90 tabs Allergies Allergy/AdvReac Type Severity Reaction Status Date / Time No Known Allergies Allergy Verified 04/05/24 14:10 [facility] <MARY Orozco - Last Filed: 08/03/24 17:23> [facility] Disclaimer: The information contained in this section may have been updated after the patient was seen, as this information can be updated by other users. Medical History (Updated 08/03/24 @ 17:11 by MARY Orozco) Outbursts of anger Pre-diabetes History of torsion of testis Vitamin D deficiency Surgical History History of laparoscopic cholecystectomy History of hernia repair Hx of esophagogastroduodenoscopy Family History Other No significant family history Social History (Updated 04/05/24 @ 14:17 by Prudence Douglas CMA) Smoking Status: Current every day smoker tobacco type: cigarettes packs per day: 1 second hand exposure: No alcohol intake: current substance use type: former substance user, heroin, IV drugs and methamphetamine current occupational status: employed Travel in the last 8 weeks: None household members: family housing: house lives independently: Yes marital status: single caffeine: Yes special barrie needs: No agree to transfusion: No do you feel safe at home: Yes victim of physical abuse: No victim of emotional abuse: No victim of sexual abuse: No would you like helpful sources: No Other Medical History Have you received the Flu Vaccine for this season: No Have you received the Pneumonia Vaccine: No <MARY Orozco - Last Filed: 08/03/24 17:23> ROS Obtained: Yes Systems reviewed as appropriate & no additional complaints except as documented Physical Exam <MARY Orozco - Last Filed: 08/03/24 17:23> General General appearance: alert and in no apparent distress Expanded Eye Exam Both Eyes Image: 2 1. Metallic foreign body Respiratory Respiratory exam: Present normal lung sounds bilaterally Cardiovascular Cardiovascular exam: Present regular rate Neurological Exam Neurological exam: Present alert and oriented X3 Medical Decision Making <MARY Orozco - Last Filed: 08/03/24 17:23> Medical Records Screening: Per USPSTF and CDC recommendations, given the prevalence of disease in our region, it is our hospital?s policy to screen for HIV and viral Hepatitis for all patients aged 18 and over and those with ongoing risk factors. Wilfredo Inquiry Pt receiving controlled substance: No Vital Signs: 08/03/24 16:48 08/03/24 17:27 Temperature 98.2 F 98.2 F Temperature Source Oral Oral Pulse Rate 75 Pulse Rate [Left Radial] 75 Respiratory Rate 13 13 Blood Pressure 142/96 H Blood Pressure [Right Arm] 142/96 H Blood Pressure Mean [Right Arm] 111 Blood Pressure Source Automatic Cuff Blood Pressure Position Sitting 02 Sat by Pulse Oximetry 98 Oxygen Delivery Method Room Air Room Air Orders (Tests/Meds): ORDERS Category Date Time Status HIV (1&2) Antibody Rapid Stat Lab 08/03/24 16:57 Ordered Hep C Ab with Reflex to RNA Stat Lab 08/03/24 16:57 Ordered Medical Decision Narrative: In summary patient is a 48-year-old male who presents to the emergency department for evaluation of her body to his left cornea. Patient is dynamically stable upon arrival, febrile. Physical exam is remarkable for a apparent metallic foreign body at approximately the 1 o'clock position of his left cornea.. Differential diagnosis includes rust ring versus retained foreign body. Initial workup will be conducted with exam under topical anesthesia. After topical anesthetic applied and fluorescein stain there is pooling around a metallic foreign body at the 1 o'clock position. Utilizing the bevel of a 18- gauge needle I removed the metallic foreign body and all visible remnants of the rust ring. Erythromycin ointment was applied to the and patient is appropriate for discharge with follow-up with ophthalmology for reevaluation and management. <Leon Hurtado MD - Last Filed: 08/03/24 20:39> Vital Signs: 08/03/24 16:48 08/03/24 17:27 Temperature 98.2 F 98.2 F Temperature Source Oral Oral Pulse Rate 75 Pulse Rate [Left Radial] 75 Respiratory Rate 13 13 Blood Pressure 142/96 H Blood Pressure [Right Arm] 142/96 H Blood Pressure Mean [Right Arm] 111 Blood Pressure Source Automatic Cuff Blood Pressure Position Sitting 02 Sat by Pulse Oximetry 98 Oxygen Delivery Method Room Air Room Air Orders (Tests/Meds): ORDERS Category Date Time Status HIV (1&2) Antibody Rapid Stat Lab 08/03/24 16:57 Ordered Hep C Ab with Reflex to RNA Stat Lab 08/03/24 16:57 Ordered Medical Decision Narrative: In summary patient is a 48-year-old male who presents to the emergency department for evaluation of her body to his left cornea. Patient is dynamically stable upon arrival, febrile. Physical exam is remarkable for a apparent metallic foreign body at approximately the 1 o'clock position of his left cornea.. Differential diagnosis includes rust ring versus retained foreign body. Initial workup will be conducted with exam under topical anesthesia. After topical anesthetic applied and fluorescein stain there is pooling around a metallic foreign body at the 1 o'clock position. Utilizing the bevel of a 18- gauge needle I removed the metallic foreign body and all visible remnants of the rust ring. Erythromycin ointment was applied to the and patient is appropriate for discharge with follow-up with ophthalmology for reevaluation and management. I was consulted by the SHALONDA, and we discussed the complexity of the problems being addressed. I approved the treatment and management plan for this patient's care in the Emergency Department, thus performing a substantive portion of the medical decision making. Leon Hurtado MD Procedures <MARY Orozco - Last Filed: 08/03/24 17:23> Foreign Body Removal Site: left and other (Cornea) Description of foreign body: other (Metal) Technique: manual removal Confirmed by:: direct visualization Complications: none Critical Care <MARY Orozco - Last Filed: 08/03/24 17:23> Critical Care Time Critical Care Time: No
[2024-08-03 17:27] VITALS: BP 142/96; PULSE 75; RESP 13; TEMP 36.8; O2SAT 98
== END 2024-08-03 17:28 | disposition home or self-care (01) ==
LOC: ER 17:16
PROVIDERS: Emergency Provider Emergency Medicine; PCP Internal Medicine
DX: T15.02XA Foreign body in cornea, left eye, initial encounter (principal); H57.12 Ocular pain, left eye; W44.8XXA Other foreign body entering into or through a natural orifice, initial encounter; Y93.89 Activity, other specified; Y92.9 Unspecified place or not applicable
CPT/HCPCS: 99282

== ENCOUNTER 2025-02-06 14:59 | Outpatient (RCR) | payer OTHER, SELFPAY ==
--- NOTE | 2025-02-06 16:05 | HMH.PTOPEV ---
PT Outpatient Evaluation Rehab PT Outpatient Evaluation Start: 02/06/25 15:02 Freq: Status: Active Protocol: Document 02/06/25 15:03 [email or web address] (Rec: 02/06/25 16:04 JORDY [id number]) E-signed By Luanne Campa, PT Outpatient Therapy Subjective History Subjective History Pt is a 49 y/o male who reports chronic low back and RLE pain for over 10 years. Pt reports gradual worsening of pain overtime, denies recent trauma or injury. Pt with most recent lumbar spine MRI in 2021 with impression of Multilevel degenerative disc disease. Right foraminal disc protrusion at L3-4 with mild right neural foraminal narrowing. Small central disc protrusion at L5-S1. Pt states he is scheduled to have a lumbar spine MRI tomorrow. Pt reports constant pain from his central low back to his right posterior hip. Pt also reports constant numbness of the RLE for >10 years as well. Pt denies b/b dysfunction. Pt reports pain is aggravated by prolonged standing, sitting , walking, and bending/lifting . Pt reports his back and right leg locks up or suddenly gives out when he sits for a long time. Pt reports he was prescribed medication for arthritis which helps him move more but does not assist with pain. Medical History: Outbursts of anger, Bipolar, Pre-diabetes , History of torsion of testis, Vitamin D deficiency, ADHD, COPD + Slump test RLE New diagnosis of cancer in past 12 No months? Chief Complaint Pain,Catches/Locks,Weakness Symptom Type Ache,Sharp,Dull,Stabbing, Numbness,Tingling Symptoms Relieved By OTC Meds Symptoms Aggravated By Standing,Bending/Stooping, Physical Activity,Walking, Lifting Current Functional Limitations Lifting,Housework,Sleeping, Standing,Squatting,Walking, Bending/Stooping Symptom Description Constant but Variable Level of pain today (0-10) 7 Pain scale - at its best (0-10) 6 Pain scale - at its worst (0-10) 10 Lumbopelvic Eval Palapation tenderness bilateral paraspinal tenderness R thoracolumbar PS buttock tenderness Yes: R gluteal mm Lumbar/Sacral Palpation Findings Tenderness Lumbar/Sacral Palpation Overall Comment 2/4 TTP Accessory Movement T-spine Vertebrae Accessory Movements Central P/A [place] that Elicit Symptoms T10 bilateral T11 bilateral T12 bilateral L2 bilateral L3 bilateral L4 bilateral Range of Motion Lumbar Spine Active Flexion Range of 50 Motion (degrees) Lumbar Spine Active Extension Range of 12 Motion (degrees) Left Lumbar Spine Lateral Flexion Active 15 Range of Motion (degrees) Right Lumbar Spine Lateral Flexion 15 Active Range of Motion (degrees) Manual Muscle Test Left Knee Extension Strength Grade 5 Normal Knee Flexion Strength Grade 5 Normal Hip Flexion Strength Grade 5 Normal Hip Abduction Strength Grade 5 Normal Hip Adduction Strength Grade 5 Normal Hip Extension Strength Grade 4 Good Ankle Dorsiflexion Strength Grade 5 Normal Right Knee Extension Strength Grade 4- Good- Knee Flexion Strength Grade 4- Good- Hip Flexion Strength Grade 3 Fair Hip Abduction Strength Grade 4- Good- Hip Adduction Strength Grade 4- Good- Hip Extension Strength Grade 4- Good- Ankle Dorsiflexion Strength Grade 4- Good- DTR Rt Patellar 1+ Lt Patellar 2+ Rt Gastroc/Soleus 2+ Lt Gastroc/Soleus 2+ Altered Sensation Bilateral LE Dermatome Level L3 Comment decreased light touch R compared to L Special Tests Hip Simon (ZHENG) Test Positive Right Sciatic Nerve Tension Test Positive Right Unilateral Straight Leg Raise (Lasegue) Positive Right Test Oswestry Index Section 1 Pain Intensity The pain is severe and does not vary much Section 2 Personal Care (Washing,Dresing) change my way of washing or dressing in order to avoid pain Section 3 Lifting I can lift heavy weights, but it gives me extra pain Section 4 Walking I cannot walk more than one mile wihtout increasing pain Section 5 Sitting Pain prevents me from sitting for more than one hour Section 6 Standing I avoid standing because it increases the pain immediately Section 7 Sleeping Pain prevents me from sleeping at all Section 8 Social Life Pain has restricted my social life to my home Section 9 Traveling I get extra pain while traveling which compels me to seek alternate fo Section 10 Changing Degreee of Pain My pain is gradually getting worse Score and Risk Level Oswestry Sc 31 Oswestry Risk Level Severe Disability Outpatient Therapy Assessment Impairments Problems/Impairmments Palpation Tenderness,Impaired Range of Motion,Impaired Strength,Impaired Walking, Impaired Standing,Impaired Lifting,Impaired Household Care,Impaired Squatting, Impaired Bending,Subjective C/ O Pain,Impaired Self Care/Self Management Prognosis Rehab Potential Good Clinical Impression Consistent with Diagnosis Yes Short Term Goals Number of Weeks 3 Decrease Subjective C/O Pain Yes: Improve pain at worst to 8/10 to improve overall QOL Improve Self Care/Self Management Yes Patient to be Ind w/ HEP Yes Alf Goals Number of Weeks 6 Increase Range of Motion Yes: Improve lumbar AROM flex to 60-70, ext 20 Increase Strength Yes: Improve RLE MMT to 4+/5 grossly Increase Ability to Walk Yes: 10-15' with pain 6/10 or less to assist with iADLs Increase Ability to Stand Yes: 10-15' with pain 6/10 or less to assist with ADLs Improve Oswestry Score Yes: Improve score to 26 to improve overall QOL Decrease Subjective C/O Pain Yes: Improve pain at worst to 6/10 to improve overall QOL Outpatient Therapy Plan of Care Treatment Plan May Include Therapeutic Exercise Including Home Yes Exercise Program Manual Therapy Techniques Yes Neuromuscular Re-education Yes Therapeutic Activities to Return to Yes Previous Functional/Work Level ADL/Self Care Education Yes Mechanical Traction Yes Dry Needling Yes Thermal Modalities Yes Electrical Stimulation Yes Ultrasound/Phonophoresis Yes Iontophoresis Yes Massage Yes Eval/Re-Eval Yes Frequency Times per week 2 Duration Number of Weeks 4-6 Addendums This patient is a candidate for social No or vocational rehab? Patient/Guardian verbally acknowledges Yes understanding of treatment program and consents to further treatment? Patient/Guardian verbally acknowledges Yes understanding of diagnosis, prognosis and goals for treatment? Eval Complexity PT Charges 31693 - Low Complexity Shoulder/Elbow Eval Shoulder Objective Measurements Elbow Objective Measurements PHYSICIAN CERTIFICATION: I certify the specified therapy services for Lukasz Camacho are required, authorized, and reviewed every 30 days.
== END 2025-02-06 23:59 | disposition home or self-care (01) ==
LOC: PT 14:59
PROVIDERS: Visit Provider Nurse Practitioner Family
DX: M54.16 Radiculopathy, lumbar region (principal); M51.369 Other intervertebral disc degeneration, lumbar region without mention of lumbar back pain or lower extremity pain
CPT/HCPCS: 97163

== ENCOUNTER 2025-02-07 06:55 | Outpatient (CLI) | payer OTHER, SELFPAY ==
--- OUTSIDE RECORDS SUMMARY | 2025-02-07 06:57 | XMS_ITS | Data Portability ---
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 Chronic hepatitis-C: Patient completed treatment with Mavyret x8 weeks on October 06, 2022. HCV PCR quant at that time was negative. Patient was provided with a lab order for repeat labs to be done at [facility] on January 04 2023 to ensure SVR has been achieved. -Patient was educated on modes of transmission of hepatitis-C and encouraged to not share personal hygiene products such as razors or toothbrushes. Patient was instructed to practice barrier methods during times of sexual contact and was instructed to encourage sexual partners to receive testing for hepatitis-C. 2. H pylori gastritis: Patient has completed treatment with bismuth quadruple therapy. 3. Abdominal pain: This has resolved since undergoing cholecystectomy , umbilical hernia repair, and treatment for H pylori per above. [email or web address] Not available 12/17/2022 15:13:02 Plan of Treatment Reminders Order Date Submit Date Provider Last Modified By Organization Details Last Modified Time Details Appointments None recorded. Lab CMP, serum or plasma 2022 023 [email or web address] 361 [facility] (Lab), [address] [place], [place] [address], [place], [address], 13:29:24 CBC 2022 023 [email or web address] 361 [facility] (Lab), [facility], [place], [address], 3 13:29:24 hepatitis C RNA, quant, PCR, serum 2022 023 [facility] (Lab), [address], [place], [address], 3 14:06:11 CMP, serum or plasma 2021 022 [facility] (Registration ), [address], [place], [address], 2 14:16:52 CBC 2021 [facility] (Registration ), [address], [place], [address], 2 15:14:05 hepatitis C virus RNA, viral load, PCR, serum or plasma 2021 022 [facility] (Registration ), [address], [place], [address], 2 23:51:35 PT/INR [address] (Registration ), [address], [place], [address], 3 13:20:18 CMP, serum or plasma 2021 022 [facility] (Registration ), [address], [place], [address], 2 11:23:40 CBC 2021 [facility] (Registration ), [address], [place], [address], 2 12:12:42 hepatitis C virus RNA, viral load, PCR, serum or plasma 2021 022 MEL [facility] (Registration ), [address], [place], [address], 03:50:32 PT/INR [email or web address] (Registration ), [address], [place], [address], 15:22:18 Referral None recorded. Procedures None recorded. Surgeries None recorded. Imaging None recorded. Medication Orders None recorded. Patient TargetsNo targets recorded. Patient InstructionsNo instructions recorded. Reason for Referral None Reported. Results Created Date Observation Date Name Description Value Unit Range Abnormal Flag Note LastModifiedBy Organization Detail LastModifiedTime 09/09/20 22 09/09/2022 CBC AUTO NO DIFF (HEMO GRAM) WBC 19.4 K/uL 4.0-10 .5 high Not Available [facility] ([facility]cd) [address], [place], [address], 09/09/2022 11:20:18 09/09/20 22 09/09/2022 CBC AUTO NO DIFF (HEMO GRAM) RBC 5.8 M/mm3 4.7-6. 1 Not Available [facility] ([facility]) [address] , [place], [address], 09/09/2022 11:20:18 09/09/20 22 09/09/2022 CBC AUTO NO DIFF (HEMO GRAM) HGB 16.7 gm/dL 13.5-1 8.0 Not Available [facility] ([facility]) [address] , [place], [address], 09/09/2022 11:20:18 09/09/20 22 09/09/2022 CBC AUTO NO DIFF (HEMO GRAM) HCT 50.5 % 42.0-5 2.0 Not Available [facility] ([facility]) [address] , [place], [address], 09/09/2022 11:20:18 09/09/20 22 09/09/2022 CBC AUTO NO DIFF (HEMO GRAM) MCV 87.8 fL 78-100 Not Available [facility] ([facility]) [address] , [place], [address], 09/09/2022 11:20:18 09/09/20 22 09/09/2022 CBC AUTO NO DIFF (HEMO GRAM) MCH 29.0 pg 27-31 Not Available [facility] ([facility]) [address], [place], [address], 09/09/2022 11:20:18 09/09/20 22 09/09/2022 CBC AUTO NO DIFF (HEMO GRAM) MCHC 33.1 g/dL 32-36 Not Available [facility] ([facility]) [address], [place], [address], 09/09/2022 11:20:18 09/09/20 22 09/09/2022 CBC AUTO NO DIFF (HEMO GRAM) RDW 13.4 % 11.5-1 4.0 Not Available [facility] ([facility]) [address], [place], [address], 09/09/2022 11:20:18 09/09/20 22 09/09/2022 CBC AUTO NO DIFF (HEMO GRAM) platelet count 307 K/uL 150-45 0 Not Available [facility] ([facility]) [address], [place], [address], 09/09/2022 11:20:18 09/09/20 22 09/09/2022 CBC AUTO NO DIFF (HEMO GRAM) manual differential NO Not Available [facility] ([facility]) [address], [place], [address], 09/09/2022 11:20:18 09/09/20 22 09/09/2022 COMP METAB OLIC PANEL sodium 137 mmol/ L 136-14 5 Not Available [facility] ([facility]) [address] , [place], [address], 09/09/2022 11:23:40 09/09/20 22 09/09/2022 COMP METAB OLIC PANEL potassium 3.9 mmol/ L 3.6-5. 0 Not Available [facility] ([facility]) [address] , [place], [address], 09/09/2022 11:23:40 09/09/20 22 09/09/2022 COMP METAB OLIC PANEL chloride 104 mmol/ L 98-107 Not Available [facility] ([facility]) [address] , [place], [address], 09/09/2022 11:23:40 09/09/20 22 09/09/2022 COMP METAB OLIC PANEL carbon dioxide 27.0 mmol/ L 21.0-3 2.0 Not Available [facility] ([facility]) [address] , [place], [address], 09/09/2022 11:23:40 09/09/20 22 09/09/2022 COMP METAB OLIC PANEL anion gap 9.9 Not Available [facility] ([facility]) [address] , [place], [address], 09/09/2022 11:23:40 09/09/20 22 09/09/2022 COMP METAB OLIC PANEL glucose 109 mg/dL 70-120 Not Available [facility] ([facility]) [address] , [place], [address], 09/09/2022 11:23:40 09/09/20 22 09/09/2022 COMP METAB OLIC PANEL BUN 8 mg/dL 7-18 Not Available [facility] ([facility]) [address] , [place], [address], 09/09/2022 11:23:40 09/09/20 22 09/09/2022 COMP METAB OLIC PANEL creatinine 1.0 mg/dL 0.6-1. 3 Not Available [facility] ([facility]) [address], [place], [address], 09/09/2022 11:23:40 09/09/20 22 09/09/2022 COMP METAB OLIC PANEL glomerular filtration rate >60 mlper min 60- Not Available [facility] ([facility]) [address], [place], [address], 09/09/2022 11:23:40 09/09/20 22 09/09/2022 COMP METAB OLIC PANEL total protein 7.8 g/dL 6.4-8. 2 Not Available [facility] ([facility]) [address], [place], [address], 09/09/2022 11:23:40 09/09/20 22 09/09/2022 COMP METAB OLIC PANEL albumin 3.9 g/dL 3.4-5. 0 Not Available [facility] ([facility]) [address], [place], [address], 09/09/2022 11:23:40 09/09/20 22 09/09/2022 COMP METAB OLIC PANEL globulin 3.9 Not Available [facility] ([facility]) [address], [place], [address], 09/09/2022 11:23:40 09/09/20 22 09/09/2022 COMP METAB OLIC PANEL alb/glob ratio 1.0 0.7-2 Not Available [facility] ([facility]) [address], [place], [address], 09/09/2022 11:23:40 09/09/20 22 09/09/2022 COMP METAB OLIC PANEL calcium 9.2 mg/dL 8.5-10 .5 Not Available [facility] ([facility]) [address], [place], [address], 09/09/2022 11:23:40 09/09/20 22 09/09/2022 COMP METAB OLIC PANEL bilirubin total 0.31 mg/dL 0.10-1 .00 Not Available [facility] ([facility]) [address] , [place], [address], 09/09/2022 11:23:40 09/09/20 22 09/09/2022 COMP METAB OLIC PANEL AST (SGOT) 16 U/L 0-37 Not Available [facility] ([facility]) [address], [place], [address], 09/09/2022 11:23:40 09/09/20 22 09/09/2022 COMP METAB OLIC PANEL ALT (SGPT) 22 U/L 0-65 Not Available [facility] ([facility]) [address], [place], [address], 09/09/2022 11:23:40 09/09/20 22 09/09/2022 COMP METAB OLIC PANEL alk phosphatase 108 U/L 46-116 Not Available [facility] ([facility]) [address], [place], [address], 09/09/2022 11:23:40 09/09/20 22 09/09/2022 PT (PROT HROMB IN TIME) W INR prothrombin time 10.1 secon ds 9.3-11 .4 Not Available [facility] ([facility]) [address], [place], [address], 09/09/2022 11:50:09 09/09/20 22 09/09/2022 PT (PROT HROMB IN TIME) W INR INR 1.0 ratio 0.97-1 .05 INR is inten ded to be used ONLY for patie nts on stabl e oral antic oagul ant thera py. Thera peuti c Range s: 2.0-3 .0 Usual Thera peuti c Range 2.5-3 .5 For patie nts with histo ry of Multi ple Deep Vein Throm bus or Mecha nical Heart Valve s Not Available [facility] ([facility]) [address] , [place], [address], 09/09/2022 11:50:09 09/09/20 22 09/10/2022 HCV RNA QUANT , RT-PC R [email or web address] HCV Not Detect ed IU/mL Not Available [facility] ([facility]) [address] , [place], [address], 09/10/2022 19:09:31 09/09/20 22 09/10/2022 HCV RNA QUANT , RT-PC R test information Commen t . The quant itati ve range of this assay is 15 IU/mL to 100 compa on IU/mL . Perfo rmed at: [facility] [place] [address] [facility] , [place] [address] Lab Direc tor: Genevieve silver MD, Phone : [phone] Not Available [facility] ([facility]) [address] , [place], [address], 09/10/2022 19:09:31 10/07/20 22 2022 CBC AUTO NO DIFF (HEMO GRAM) WBC 14.9 K/uL 4.0-10 .5 high Not Available [facility] ([facility]) [address] , [place], [address], 2022 13:42:55 10/07/20 22 2022 CBC AUTO NO DIFF (HEMO GRAM) RBC 5.4 M/mm3 4.7-6. 1 Not Available [facility] ([facility]) [address] , [place], [address], 2022 13:42:55 10/07/20 22 2022 CBC AUTO NO DIFF (HEMO GRAM) HGB 16.3 gm/dL 13.5-1 8.0 Not Available [facility] ([facility]) [address], [place], [address], 2022 13:42:55 10/07/20 22 2022 CBC AUTO NO DIFF (HEMO GRAM) HCT 48.2 % 42.0-5 2.0 Not Available [facility] ([facility]) [address], [place], [address], 2022 13:42:55 10/07/20 22 2022 CBC AUTO NO DIFF (HEMO GRAM) MCV 88.6 fL 78-100 Not Available [facility] ([facility]) [address], [place], [address], 2022 13:42:55 10/07/20 22 2022 CBC AUTO NO DIFF (HEMO GRAM) MCH 30.0 pg 27-31 Not Available [facility] ([facility]) [address], [place], [address], 2022 13:42:55 10/07/20 22 2022 CBC AUTO NO DIFF (HEMO GRAM) MCHC 33.8 g/dL 32-36 Not Available [facility] ([facility]) [address], [place], [address], 2022 13:42:55 10/07/20 22 2022 CBC AUTO NO DIFF (HEMO GRAM) RDW 13.2 % 11.5-1 4.0 Not Available [facility] ([facility]) [address], [place], [address], 2022 13:42:55 10/07/20 22 2022 CBC AUTO NO DIFF (HEMO GRAM) platelet count 326 K/uL 150-45 0 Not Available [facility] ([facility]) [address] [facility], [place], [address], 2022 13:42:55 10/07/20 22 2022 CBC AUTO NO DIFF (HEMO GRAM) manual differential NO Not Available [facility] ([facility]) [address] , [place], [address], 2022 13:42:55 10/07/20 22 2022 COMP METAB OLIC PANEL sodium 138 mmol/ L 136-14 5 Not Available [facility] ([facility]) [address] , [place], [address], 2022 14:16:51 10/07/20 22 2022 COMP METAB OLIC PANEL potassium 4.2 mmol/ L 3.6-5. 0 Not Available [facility] ([facility]) [address] , [place], [address], 2022 14:16:51 10/07/20 22 2022 COMP METAB OLIC PANEL chloride 104 mmol/ L 98-107 Not Available [facility] ([facility]) [address] , [place], [address], 2022 14:16:51 10/07/20 22 2022 COMP METAB OLIC PANEL carbon dioxide 26.0 mmol/ L 21.0-3 2.0 Not Available [facility] ([facility]) [address] , [place], [address], 2022 14:16:51 10/07/20 22 2022 COMP METAB OLIC PANEL anion gap 12.2 Not Available [facility] ([facility]) [address] , [place], [address], 2022 14:16:51 10/07/20 22 2022 COMP METAB OLIC PANEL glucose 116 mg/dL 70-120 Not Available [facility] ([facility]) [address] , [place], [address], 2022 14:16:51 10/07/20 22 2022 COMP METAB OLIC PANEL BUN 8 mg/dL 7-18 Not Available [facility] ([facility]) [address], [place], [address], 2022 14:16:51 10/07/20 22 2022 COMP METAB OLIC PANEL creatinine 1.1 mg/dL 0.6-1. 3 Not Available [facility] ([facility]) [address], [place], [address], 2022 14:16:51 10/07/20 22 2022 COMP METAB OLIC PANEL glomerular filtration rate >60 mlper min 60- Not Available [facility] ([facility]) [address] , [place], [address], 2022 14:16:51 10/07/20 22 2022 COMP METAB OLIC PANEL total protein 7.8 g/dL 6.4-8. 2 Not Available [facility] ([facility]) [address] , [place], [address], 2022 14:16:51 10/07/20 22 2022 COMP METAB OLIC PANEL albumin 3.6 g/dL 3.4-5. 0 Not Available [facility] ([facility]) [address] , [place], [address], 2022 14:16:51 10/07/20 22 2022 COMP METAB OLIC PANEL globulin 4.2 Not Available [facility] ([facility]) [address] , [place], [address], 2022 14:16:51 10/07/20 22 2022 COMP METAB OLIC PANEL alb/glob ratio 0.9 0.7-2 Not Available [facility] ([facility]) [address], [place], [address], 2022 14:16:51 10/07/20 22 2022 COMP METAB OLIC PANEL calcium 9.3 mg/dL 8.5-10 .5 Not Available [facility] ([facility]) [address], [place], [address], 2022 14:16:51 10/07/20 22 2022 COMP METAB OLIC PANEL bilirubin total 0.21 mg/dL 0.10-1 .00 Not Available [facility] ([facility]) [address] , [place], [address], 2022 14:16:51 10/07/20 22 2022 COMP METAB OLIC PANEL AST (SGOT) 8 U/L 0-37 Not Available [facility] ([facility]) [address], [place], [address], 2022 14:16:51 10/07/20 22 2022 COMP METAB OLIC PANEL ALT (SGPT) 24 U/L 0-65 Not Available [facility] ([facility]) [address], [place], [address], 2022 14:16:51 10/07/20 22 2022 COMP METAB OLIC PANEL alk phosphatase 104 U/L 46-116 Not Available [facility] ([facility]) [address] , [place], [address], 2022 14:16:51 10/07/20 22 2022 PT (PROT HROMB IN TIME) W INR prothrombin time 10.1 secon ds 9.3-11 .4 Not Available [facility] ([facility]) [address] , [place], [address], 2022 14:22:22 10/07/20 22 2022 PT (PROT HROMB IN TIME) W INR INR 1.0 ratio 0.97-1 .05 INR is inten ded to be used ONLY for patie nts on stabl e oral antic oagul ant thera py. Thera peuti c Range s: 2.0-3 .0 Usual Thera peuti c Range 2.5-3 .5 For patie nts with histo ry of Multi ple Deep Vein Throm bus or Mecha nical Heart Valve s Not Available [facility] ([facility]) [address] , [place], [address], 2022 14:22:22 10/07/20 22 10/08/2022 HCV RNA BY PCR, QN RFX [place] HCV log 10 TNP log10 _IU/m L Unabl e to calcu late resul t since non-n umeri c resul t obtai tommie for compo nent test. Not Available [facility] ([facility]) [address] , [place], [address], 10/08/2022 19:09:11 10/07/20 22 10/08/2022 HCV RNA BY PCR, QN RFX [place] test information Commen t . The quant itati ve range of this assay is 15 IU/mL to 100 compa on IU/mL . Not Available [facility] ([facility]) [address], [place], [address], 10/08/2022 19:09:11 10/07/20 22 10/08/2022 HCV RNA BY PCR, QN RFX [place] HCV genotype TNP Not indic ated Perfo rmed at: [facility] [place] [address] [place] [address] Lab Direc tor: Genevieve silver MD, Phone : [phone] Not Available [facility] ([facility]) [address], [place], [address], 10/08/2022 19:09:11 10/07/20 22 10/08/2022 HCV RNA BY PCR, QN RFX [place] [email or web address] HCV Not Detect ed IU/mL Not Available [facility] ([facility]) [address], [place], [address], 10/08/2022 19:09:11 Result Notes None recorded. 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 Active Connie Day null, [place] - [facility] [place] [facility] [place] 2 16:03:27 Flatulence , eructation and gas pain 240537344 Active Connie Day null, [place] - [facility] [place] [facility] [place] 2 16:03:27 Viral hepatitis C 59128737 Active Connie Day null, [place] - [facility] [place] [facility] [place] 2 16:03:27 Biliary calculus 951586229 Active Connie Day null, [place] - [facility] [place] [facility] [place] 2 16:03:27 Abdominal pain 92476518 Active Connie Day null, [place] - [facility] [place] [facility] [place] 2 16:03:27 Helicobact er pylori-ass ociated gastritis 339555373 Active 2022 Michael Marinelli PA-C [address], [place], [address] , [place] - [facility] [place] [facility] [place] 3 15:10:44 Problem Notes None recorded. Medical Equipment None Reported. Allergies No known drug allergies Medications Name Sig Start Date Stop Date Status Note LastModified by Organization Details LastModified Time tetracyclin e 500 mg capsule Take 1 capsule 4 times a day by oral route for 14 days. 12/17 completed Not Available Not Available Not Available hydrocodone 5 mg-acetamin ophen 325 mg tablet TAKE 1 TO 2 TABLETS BY MOUTH EVERY 6 HOURS NEEDED FOR PAIN 12/17 completed Not Available Not Available Not Available metronidazo le 500 mg tablet Take 1 tablet 4 times a day by oral route for 14 days. 12/17 completed Not Available Not Available Not Available aspirin 81 mg tablet,ivon yed release TAKE 1 TABLET BY MOUTH ONCE DAILY 08/12 completed Not Available Not Available Not Available bisoprolol fumarate 5 mg tablet TAKE 1 TABLET BY MOUTH ONCE DAILY 08/12 completed Not Available Not Available Not Available Bismuth 262 mg chewable tablet Take 2 tablets 4 times a day by oral route for 14 days. 12/17 completed Not Available Not Available Not Available omeprazole 20 mg capsule,del ayed release Take 1 capsule twice a day by oral route before meals for 14 days. 12/17 completed Not Available Not Available Not Available albuterol sulfate HFA 90 mcg/actuati on aerosol inhaler INHALE 2 PUFFS BY MOUTH EVERY 8 HOURS NEEDED FOR SHORTNESS OF BREATH OR WHEEZING active Not Available Not Available No t Available cephalexin 750 mg capsule TAKE 1 CAPSULE BY MOUTH EVERY 6 HOURS FOR 5 DAYS 08/12 completed Not Available Not Available Not Available Mavyret 100 mg-40 mg tablet 12/17 completed Not Available Not Available Not Available Vitals Date Recorded Body weight Systolic blood pressure Diastolic blood pressure Provider Name and Address Organization Details Last Updated DateTime 12/17/2022 637806.47 g 151 mm[Hg] 100 mm[Hg] Xenia OZUNA [facility] [place] 12/17/2022 13:42:40 Date Recorded Body weight Provider Name an d Address Organization Details Last Updated DateTime 08/12/2022 597002.21 g Xenia OZUNA [facility] [place] 08/12/2022 11:07:52 Date Recorded Body weight Heart rate Systolic blood pressure Diastolic blood pressure Provider Name and Address Organization Details Last Updated DateTime 09/09/2022 745817.43 g 86 /min 141 mm[Hg] 100 mm[Hg] Xenia OZUNA [facility] [place] 09/09/2022 10:17:17 Social History None recorded. Functional Status None recorded. Mental Status None recorded. Family History Relationship Description Onset Age of this Age Resolved Age Notes LastModified by Organization Details LastModified Time Father No current problems or disability [email or web address] Not available 10/07 12:51:16 Mother No current problems or disability [email or web address] Not available 10/07 12:51:16 Medical History No medical history recorded. Immunizations Vaccine Type Date Status Note Provider Nam e and Address Organization Details Recorded Time Hep B, adult 4 completed Connie powers, [place] - [facility] [place] 10/02/2022 16:03:37 Td (adult), 5 Lf tetanus toxoid, preservative free, adsorbed 7 completed Connie powers, [place] - [facility] [place] 10/02/2022 16:03:37 Past Encounters Encounter ID Performer Location Encounter Start Date Encounter Closed Date Diagnosis/Indication Diagnosis SNOMED-CT Code Diagnosis ICD10 Code Diagnosis Note [id number] Mila Pedraza NP [facility] [address] [address] 08/12/2022 10:58:15 08/12/2022 11:20:42 Chronic hepatitis C 079969597 B18.2 -genotype 3, VL 1.9 M, F0-F1 by fibrosure. - Provided 1st 4 weeks of Mavyret- Counseled to avoid sharing toothbrush es, razors. etc. Must use barrier method when sexual encounter is unavoidabl e otherwise practice abstinence . [id number] Mila Pedraza NP [facility] [address] [address] 09/09/2022 10:03:50 09/09/2022 10:23:02 Chronic hepatitis C 873301400 B18.2 -genotype 3, VL 1.9 M, F0-F1 by fibrosure. - Provided 1st 4 weeks of Mavyret- Counseled to avoid sharing toothbrush es, razors. etc. Must use barrier method when sexual encounter is unavoidabl e otherwise practice abstinence . Viral hepatitis C 752260 07 B19.20 [id number] Mila Pedraza NP [facility] [address] [address] 2022 12:50:14 2022 13:13:21 Abdominal pain 36050854 R10.9 - has upcoming cholecyste ctomy scheduled Chronic hepatitis C 1283 88669 B18.2 -genotype 3, VL 1.9 M, F0-F1 by fibrosure. - Will check for SVR in 3 months- Counseled to avoid sharing toothbrush es, razors. etc. Must use barrier method when sexual encounter is unavoidabl e otherwise practice abstinence . Viral hepatitis C 902003 07 B19.20 [id number] MARY Garcia-C [facility] [address] [address] 12/17/2022 13:31:15 12/17/2022 14:24:10 Chronic hepatitis C 194096808 B18.2 Abdominal pain 95463474 R10.9 Helicobact er pylori-associated gastritis 326471818 B96.81 Health Concerns Section Related Observation LastModified by Organization Detai ls LastModified Time None Recorded Concern Status LastModified by Organization Details LastModified Time None Recorded Advance Directives Directive None Recorded Payers Encounter Date Sequence Insurance Name Policy Number Policy Charles Covered Member ID Charles Member ID Guarantor Name 08/12/2022 1 [employer] [facility] (MEDICAID HMO) Lukasz Kennyon [id number] Lukasz Kennyon 09/09/2022 1 [employer] [facility] (MEDICAID HMO) Lukasz Camacho [id number] Lukasz Kennyon 2022 1 [employer] [facility] (MEDICAID HMO) Lukasz Camacho [id number] Lukasz Camacho 12/17/2022 1 [employer] [facility] (MEDICAID HMO) Lukasz Kennyon [id number] Lukasz Camacho Notes Date Note Type Note Provider Name and Address Organization Details Recorded Time 08/12/2022 text/html PREVIOUS: Mr. Freddie momin is a 46-year-old male who presents for evaluation of chronic hepatitis-C. He was referred by charisma Peters. He has had previous therapy for chronic hepatitis-C and reportedly cleared the virus. However, he again used IV drugs and was reinfected. He reports he has not been re-treated since then. He is also undergoing evaluation for abdominal pain. He has been found to have gallstones as well as a umbilical hernia. He pains to have these repaired after hepatitis-C workup is undertaken. (07/03): 46 yo male with chronic hepatitis C genotype 3, VL 1.9 M, F0-F1 by fibrosure.(08/12/22) Patient is here today to tow picker Mavyret. Denies nausea, vomiting, headache or fatigue. Denies diarrhea, constipation or hematachezia. Denies abdominal pain. Reports hx of gall stones and hernia; however, surgery has been delayed until Hep C is treated. Mila Pedraza NP [address], [place], [id number], [facility] 08/12/2022 13:15:00 09/09/2022 text/html PREVIOUS: Mr. Freddie momin is a 46-year-old male who presents for evaluation of chronic hepatitis-C. He was referred by charisma Peters. He has had previous therapy for chronic hepatitis-C and reportedly cleared the virus. However, he again used IV drugs and was reinfected. He reports he has not been re-treated since then. He is also undergoing evaluation for abdominal pain. He has been found to have gallstones as well as a umbilical hernia. He pains to have these repaired after hepatitis-C workup is undertaken. (07/03): 46 yo male with chronic hepatitis C genotype 3, VL 1.9 M, F0-F1 by fibrosure.(08/12/22) Patient is here today to tow picker Mavyret. Denies nausea, vomiting, headache or fatigue. Denies diarrhea, constipation or hematachezia. Denies abdominal pain. Reports hx of gall stones and hernia; however, surgery has been delayed until Hep C is treated.(09/09/22) Patient is here today for #2 4 week course of Mavyret. Reports he is feeling well. Denies IV drug use or participating in other high-risk behaviors. Denies headaches fatigue or abdominal pain. Denies complaints or concerns otherwise Mila Pedraza NP [address], [place], [address], [place] [facility] [place] 09/09/2022 10:23:34 2022 text/html PREVIOUS: Mr. Freddie momin is a 46-year-old male who presents for evaluation of chronic hepatitis-C. He was referred by charisma Peters. He has had previous therapy for chronic hepatitis-C and reportedly cleared the virus. However, he again used IV drugs and was reinfected. He reports he has not been re-treated since then. He is also undergoing evaluation for abdominal pain. He has been found to have gallstones as well as a umbilical hernia. He pains to have these repaired after hepatitis-C workup is undertaken. (07/03): 46 yo male with chronic hepatitis C genotype 3, VL 1.9 M, F0-F1 by fibrosure.(08/12/22) Patient is here today to tow picker Mavyret. Denies nausea, vomiting, headache or fatigue. Denies diarrhea, constipation or hematachezia. Denies abdominal pain. Reports hx of gall stones and hernia; however, surgery has been delayed until Hep C is treated.(09/09/22) Patient is here today for #2 4 week course of Mavyret. Reports he is feeling well. Denies IV drug use or participating in other high-risk behaviors. Denies headaches fatigue or abdominal pain. Denies complaints or concerns otherwise(10/07/22) Patient is here today for follow up s/p treatment. Reports he finished his treatment yesterday. Reports he is feeling much better. Denies nausea, vomiting, headache fatigue. Mila Pedraza, KENN [address] [facility], [place], [address], [place] [facility] [place] 2022 13:21:49 12/17/2022 text/html PREVIOUS: Mr. Freddie momin is a 46-year-old male who presents for evaluation of chronic hepatitis-C. He was referred by charisma Peters. He has had previous therapy for chronic hepatitis-C and reportedly cleared the virus. However, he again used IV drugs and was reinfected. He reports he has not been re-treated since then. He is also undergoing evaluation for abdominal pain. He has been found to have gallstones as well as a umbilical hernia. He pains to have these repaired after hepatitis-C workup is undertaken. (07/03): 46 yo male with chronic hepatitis C genotype 3, VL 1.9 M, F0-F1 by fibrosure.(08/12/22) Patient is here today to tow picker Mavyret. Denies nausea, vomiting, headache or fatigue. Denies diarrhea, constipation or hematachezia. Denies abdominal pain. Reports hx of gall stones and hernia; however, surgery has been delayed until Hep C is treated.(09/09/22) Patient is here today for #2 4 week course of Mavyret. Reports he is feeling well. Denies IV drug use or participating in other high-risk behaviors. Denies headaches fatigue or abdominal pain. Denies complaints or concerns otherwise(10/07/22) Patient is here today for follow up s/p treatment. Reports he finished his treatment yesterday. Reports he is feeling much better. Denies nausea, vomiting, headache fatigue. CURRENT: Mr. Camacho Returns to the clinic today for follow-up regarding chronic hepatitis-C and recently identified H.pylori gastritis on EGD with gastric biopsy. He is completed treatment with bismuth quadruple therapy. He has also undergone cholecystectomy and umbilical hernia repair since his last office appointment. He is doing well currently. He completed treatment with Mavyret x8 weeks on October 06, 2022. He presents today to discuss labs for ensuring sustained viral remission. Michael Marinelli PA-C [address], [place], [id number], [facility] - [place] [facility] [place] & [place] 12/17/2022 15:14:31
--- NOTE | 2025-02-07 07:30 | MR_ITS ---
FINAL REPORT CLINICAL HISTORY: LBP. RIGHT SIDED LOW BACK PAIN. BILATERAL LEG PAIN, NUMBNESS AND TINGLING. WORSE ON RIGHT SIDE COMPARISON: 03/21/2022 FINDINGS: Multiplanar MR imaging of the lumbar spine was performed without contrast. On the sagittal T2-weighted images, there is abnormal decreased signal at L3-4. The vertebrae are of normal height. The vertebral alignment is normal. 12-L1: There is no significant canal stenosis or neuroforaminal narrowing. L1-2: There is no significant canal stenosis or neural foraminal narrowing. L2-3: There is no significant canal stenosis or neural foraminal narrowing. L3-4: Mild diffuse disc bulge. Mild to moderate right and mild left neuroforaminal narrowing. L4-5: Mild disc bulge with mild bilateral neuroforaminal narrowing. L5-S1: There is no significant canal stenosis or neural foraminal narrowing. IMPRESSION: Degenerative changes at L3-4 and L4-5 as above. No significant change from previous. Reviewed, Interpreted and Dictated by Augusto Mabry MD Transcribed by Mady Farr Authenticated and . [facility]
== END 2025-02-07 23:59 | disposition home or self-care (01) ==
LOC: RAD 06:56
PROVIDERS: PCP Nurse Practitioner Family; Visit Provider Nurse Practitioner Family
DX: M54.16 Radiculopathy, lumbar region (principal); M51.369 Other intervertebral disc degeneration, lumbar region without mention of lumbar back pain or lower extremity pain
CPT/HCPCS: 72148

== ENCOUNTER 2025-03-30 11:32 | Outpatient (POV) | payer OTHER, SELFPAY ==
--- OUTSIDE RECORDS SUMMARY | 2025-03-30 11:36 | XMS_ITS | Clinical Summary ---
Author Organization [facility] Address [address] [place] [address] Care Team Providers Care Measurement Coordinator Name Role Phone Unavailable Primary Care Provider Unavailabl e Allergies No known active allergies Medications No known medications Active Problems Problem Noted Date Diagnosed Date Cellulitis 11/29/2018 Sepsis 11/28/2018 Immunizations Immunization Administration Dates Next Due Influenza, Quadv, 6 mo and o lder, IM, PF (Flulaval, Fluarix) 11/30/2018() Social History Tobacco Use Types Packs/Day Years Used Date Smoking Tobacco: Every Day Cigarettes Smokeless Tobacco: Never Alcohol Use Standard Drinks/Week Comments No 0 (1 standard drink = 0.6 oz pur e alcohol) Sex and Gender Information Value Date Recorded Sex Assigned at Not on file Legal Sex Male 6:44 PM EST Gender Identity Not on file Sexual Orientation Not on file Last Filed Vital Signs Vital Sign Reading Time Taken Comments Blood Pressure 118/83 12/01/2018 8:00 AM EST Pulse 87 12/01/2018 8:00 AM EST Temperature 36.3 C (97.4 F) 12/01/2018 8:00 AM EST Respiratory Rate 16 12/01/2018 8:00 AM EST Oxygen Saturation 98% 12/01/2018 8:00 AM EST Inhaled Oxygen Concentration - - Weight 95.2 kg (209 lb 14.1 oz) 11/30/2018 3:12 AM EST Height 180.3 cm (5' 11 ) 11/28/2018 6:51 PM EST Body Mass Index 29.27 11/28/2018 6:51 PM EST Plan of Treatment Not on file Insurance 1999 [address]ozano [id number] [employer] [facility] Advance Directives * Full Code (Latest Code Status on File) Date Activated Date Inactivated Comments 11/29/2018 2:56 AM 12/01/2018 6:10 PM
--- OUTSIDE RECORDS SUMMARY | 2025-03-30 11:36 | XMS_ITS | Data Portability ---
Author Organization [place] - [facility] [place] [facility] [place] Address [address] [place] [id number] Care Team Providers Care Voyage Management System Operator Name Role Phone ARTUR GARCIA Primary Care Provider Assessment Encounter Date Assessment Date Assessment LastModified by Organization Details LastModified Time 12/17/2022 12/17/2022 47-year-old male with: 1. Chronic hepatitis-C: Patient completed treatment with Mavyret x8 weeks on October 06, 2022. HCV PCR quant at that time was negative. Patient was provided with a lab order for repeat labs to be done at [facility] on January 04 2023 to ensure SVR [...] and treatment for H pylori per above. [email or web address] Not available 12/17/2022 15:13:02 Plan of Treatment Reminders Order Date Submit Date Provider Last Modified By Organization Details Last Modified Time Details Appointments None recorded. Lab CMP, serum or plasma 2022 023 [email or web address] 361 [facility] (Lab), [address] [place], [place] [address]y [address], [place], [address], 13:29:24 CBC 2022 023 [email or web address] 361 [facility] (Lab), [facility], [place], [address], 3 13:29:24 hepatitis C RNA, quant, PCR, serum 2022 023 [facility] (Lab), [address] [place] [address], [place], [address], 3 14:06:11 CMP, serum or plasma 2021 022 [facility] (Registration ), [address], [place], [address], 2 14:16:52 CBC 2021 [facility] (Registration ), [address], [place], [address], 2 15:14:05 hepatitis C virus RNA, viral load, PCR, serum or plasma 2021 022 [facility] (Registration ), [address], [place], [address], 2 23:51:35 PT/INR [address] (Registration ), [address], [place], [address], 3 13:20:18 CMP, serum or plasma 2021 022 [facility] (Registration ), [address], [place], [address], 2 11:23:40 CBC 2021 [facility] (Registration ), [address], [place], [address], 2 12:12:42 hepatitis C virus RNA, viral load, PCR, serum or plasma 2021 022 [facility] (Registration ), [address], [place], [address], 03:50:32 PT/INR [email or web address] (Registration ), [address], [place], [address], 15:22:18 Referral None recorded. Procedures None recorded. [...] 19.4 K/uL 4.0-10 .5 high Not Available [facility] ([facility]) [address], [place], [address], 09/09/2022 11:20:18 09/09/20 22 09/09/2022 CBC AUTO NO DIFF (HEMO GRAM) RBC 5.8 M/mm3 4.7-6. 1 Not Available [facility] ([facility]) [address] , [place], [address], 09/09/2022 11:20:18 09/09/20 22 09/09/2022 CBC AUTO NO DIFF (HEMO GRAM) HGB 16.7 gm/dL 13.5-1 8.0 Not Available [facility] ([facility]) [address] , [place], [address], 09/09/2022 11:20:18 09/09/20 22 09/09/2022 CBC AUTO NO DIFF (HEMO GRAM) HCT 50.5 % 42.0-5 2.0 Not Available [facility] ([facility]) [address] , [place], [address], 09/09/2022 11:20:18 09/09/20 22 09/09/2022 CBC AUTO NO DIFF (HEMO GRAM) MCV 87.8 fL 78-100 Not Available [facility] ([facility]) [address] , [place], [address], 09/09/2022 11:20:18 09/09/20 22 09/09/2022 CBC AUTO NO DIFF (HEMO GRAM) MCH 29.0 pg 27-31 Not Available [facility] ([facility]) [address], [place], [address], 09/09/2022 11:20:18 09/09/20 22 09/09/2022 CBC AUTO NO DIFF (HEMO GRAM) MCHC 33.1 g/dL 32-36 Not Available [facility] ([facility]) [address], [place], [address], 09/09/2022 11:20:18 09/09/20 22 09/09/2022 CBC AUTO NO DIFF (HEMO GRAM) RDW 13.4 % 11.5-1 4.0 Not Available [facility] ([facility]) [address], [place], [address], 09/09/2022 11:20:18 09/09/20 22 09/09/2022 CBC AUTO NO DIFF (HEMO GRAM) platelet count 307 K/uL 150-45 0 Not Available [facility] ([facility]) [address], [place], [address], 09/09/2022 11:20:18 09/09/20 22 09/09/2022 CBC AUTO NO DIFF (HEMO GRAM) manual differential NO Not Available [facility] ([facility]) [address], [place], [address], 09/09/2022 11:20:18 09/09/20 22 09/09/2022 COMP METAB OLIC PANEL sodium 137 mmol/ L 136-14 5 Not Available [facility] ([facility]) [address] , [place], [address], 09/09/2022 11:23:40 09/09/20 22 09/09/2022 COMP METAB OLIC PANEL potassium 3.9 mmol/ L 3.6-5. 0 Not Available [facility] ([facility]) [address] , [place], [address], 09/09/2022 11:23:40 09/09/20 22 09/09/2022 COMP METAB OLIC PANEL chloride 104 mmol/ L 98-107 Not Available [facility] ([facility]) [address] , [place], [address], 09/09/2022 11:23:40 09/09/20 22 09/09/2022 COMP METAB OLIC PANEL carbon dioxide 27.0 mmol/ L 21.0-3 2.0 Not Available [facility] ([facility]) [address] , [place], [address], 09/09/2022 11:23:40 09/09/20 22 09/09/2022 COMP METAB OLIC PANEL anion gap 9.9 Not Available [facility] ([facility]) [address] , [place], [address], 09/09/2022 11:23:40 09/09/20 22 09/09/2022 COMP METAB OLIC PANEL glucose 109 mg/dL 70-120 Not Available [facility] ([facility]) [address] , [place], [address], 09/09/2022 11:23:40 09/09/20 22 09/09/2022 COMP METAB OLIC PANEL BUN 8 mg/dL 7-18 Not Available [facility] ([facility]) [address] , [place], [address], 09/09/2022 11:23:40 09/09/20 22 09/09/2022 COMP METAB OLIC PANEL creatinine 1.0 mg/dL 0.6-1. 3 Not Available [facility] ([facility]) [address], [place], [address], 09/09/2022 11:23:40 09/09/20 22 09/09/2022 COMP METAB OLIC PANEL glomerular filtration rate >60 mlper min 60- Not Available [facility] ([facility]) [address], [place], [address], 09/09/2022 11:23:40 09/09/20 22 09/09/2022 COMP METAB OLIC PANEL total protein 7.8 g/dL 6.4-8. 2 Not Available [facility] ([facility]) [address], [place], [address], 09/09/2022 11:23:40 09/09/20 22 09/09/2022 COMP METAB OLIC PANEL albumin 3.9 g/dL 3.4-5. 0 Not Available [facility] ([facility]) [address], [place], [address], 09/09/2022 11:23:40 09/09/20 22 09/09/2022 COMP METAB OLIC PANEL globulin 3.9 Not Available [facility] ([facility]) [address], [place], [address], 09/09/2022 11:23:40 09/09/20 22 09/09/2022 COMP METAB OLIC PANEL alb/glob ratio 1.0 0.7-2 Not Available [facility] ([facility]) [address], [place], [address], 09/09/2022 11:23:40 09/09/20 22 09/09/2022 COMP METAB OLIC PANEL calcium 9.2 mg/dL 8.5-10 .5 Not Available [facility] ([facility]) [address], [place], [address], 09/09/2022 11:23:40 09/09/20 22 09/09/2022 COMP METAB OLIC PANEL bilirubin total 0.31 mg/dL 0.10-1 .00 Not Available [facility] ([facility]) [address] , [place], [address], 09/09/2022 11:23:40 09/09/20 22 09/09/2022 COMP METAB OLIC PANEL AST (SGOT) 16 U/L 0-37 Not Available [facility] ([facility]) [address], [place], [address], 09/09/2022 11:23:40 09/09/20 22 09/09/2022 COMP METAB OLIC PANEL ALT (SGPT) 22 U/L 0-65 Not Available [facility] ([facility]) [address], [place], [address], 09/09/2022 11:23:40 09/09/20 22 09/09/2022 COMP METAB OLIC PANEL alk phosphatase 108 U/L 46-116 Not Available [facility] ([facility]) [address], [place], [address], 09/09/2022 11:23:40 09/09/20 22 09/09/2022 PT (PROT HROMB IN TIME) W INR prothrombin time 10.1 secon ds 9.3-11 .4 Not Available [facility] ([facility]) [address], [place], [address], 09/09/2022 11:50:09 09/09/20 22 09/09/2022 PT (PROT [...] Mecha nical Heart Valve s Not Available [facility] ([facility]) [address] , [place], [address], 09/09/2022 11:50:09 09/09/20 22 09/10/2022 HCV RNA QUANT , RT-PC R [email or web address] HCV Not Detect ed IU/mL Not Available [facility] ([facility]) [address] , [place], [address], 09/10/2022 19:09:31 09/09/20 22 09/10/2022 HCV RNA QUANT , RT-PC R test information Commen t . The quant itati ve range of this assay is 15 IU/mL to 100 compa on IU/mL . Perfo rmed at: [facility] [place] [address] [facility] , [place] [address] Lab Direc tor: Genevieve silver MD, Phone : [phone] Not Available [facility] ([facility]) [address] , [place], [address], 09/10/2022 19:09:31 10/07/20 22 2022 CBC AUTO NO DIFF (HEMO GRAM) WBC 14.9 K/uL 4.0-10 .5 high Not Available [facility] ([facility]) [address] , [place], [address], 2022 13:42:55 10/07/20 22 2022 CBC AUTO NO DIFF (HEMO GRAM) RBC 5.4 M/mm3 4.7-6. 1 Not Available [facility] ([facility]) [address] , [place], [address], 2022 13:42:55 10/07/20 22 2022 CBC AUTO NO DIFF (HEMO GRAM) HGB 16.3 gm/dL 13.5-1 8.0 Not Available [facility] ([facility]) [address], [place], [address], 2022 13:42:55 10/07/20 22 2022 CBC AUTO NO DIFF (HEMO GRAM) HCT 48.2 % 42.0-5 2.0 Not Available [facility] ([facility]) [address], [place], [address], 2022 13:42:55 10/07/20 22 2022 CBC AUTO NO DIFF (HEMO GRAM) MCV 88.6 fL 78-100 Not Available [facility] ([facility]) [address], [place], [address], 2022 13:42:55 10/07/20 22 2022 CBC AUTO NO DIFF (HEMO GRAM) MCH 30.0 pg 27-31 Not Available [facility] ([facility]) [address], [place], [address], 2022 13:42:55 10/07/20 22 2022 CBC AUTO NO DIFF (HEMO GRAM) MCHC 33.8 g/dL 32-36 Not Available [facility] ([facility]) [address], [place], [address], 2022 13:42:55 10/07/20 22 2022 CBC AUTO NO DIFF (HEMO GRAM) RDW 13.2 % 11.5-1 4.0 Not Available [facility] ([facility]) [address], [place], [address], 2022 13:42:55 10/07/20 22 2022 CBC AUTO NO DIFF (HEMO GRAM) platelet count 326 K/uL 150-45 0 Not Available [facility] ([facility]) [address] [facility], [place], [address], 2022 13:42:55 10/07/20 22 2022 CBC AUTO NO DIFF (HEMO GRAM) manual differential NO Not Available [facility] ([facility]) [address] , [place], [address], 2022 13:42:55 10/07/20 22 2022 COMP METAB OLIC PANEL sodium 138 mmol/ L 136-14 5 Not Available [facility] ([facility]) [address] , [place], [address], 2022 14:16:51 10/07/20 22 2022 COMP METAB OLIC PANEL potassium 4.2 mmol/ L 3.6-5. 0 Not Available [facility] ([facility]) [address] , [place], [address], 2022 14:16:51 10/07/20 22 2022 COMP METAB OLIC PANEL chloride 104 mmol/ L 98-107 Not Available [facility] ([facility]) [address] , [place], [address], 2022 14:16:51 10/07/20 22 2022 COMP METAB OLIC PANEL carbon dioxide 26.0 mmol/ L 21.0-3 2.0 Not Available [facility] ([facility]) [address] , [place], [address], 2022 14:16:51 10/07/20 22 2022 COMP METAB OLIC PANEL anion gap 12.2 Not Available [facility] ([facility]) [address] , [place], [address], 2022 14:16:51 10/07/20 22 2022 COMP METAB OLIC PANEL glucose 116 mg/dL 70-120 Not Available [facility] ([facility]) [address] , [place], [address], 2022 14:16:51 10/07/20 22 2022 COMP METAB OLIC PANEL BUN 8 mg/dL 7-18 Not Available [facility] ([facility]) [address], [place], [address], 2022 14:16:51 10/07/20 22 2022 COMP METAB OLIC PANEL creatinine 1.1 mg/dL 0.6-1. 3 Not Available [facility] ([facility]) [address], [place], [address], 2022 14:16:51 10/07/20 22 2022 COMP METAB OLIC PANEL glomerular filtration rate >60 mlper min 60- Not Available [facility] ([facility]) [address] , [place], [address], 2022 14:16:51 10/07/20 22 2022 COMP METAB OLIC PANEL total protein 7.8 g/dL 6.4-8. 2 Not Available [facility] ([facility]) [address] , [place], [address], 2022 14:16:51 10/07/20 22 2022 COMP METAB OLIC PANEL albumin 3.6 g/dL 3.4-5. 0 Not Available [facility] ([facility]) [address] , [place], [address], 2022 14:16:51 10/07/20 22 2022 COMP METAB OLIC PANEL globulin 4.2 Not Available [facility] ([facility]) [address] , [place], [address], 2022 14:16:51 10/07/20 22 2022 COMP METAB OLIC PANEL alb/glob ratio 0.9 0.7-2 Not Available [facility] ([facility]) [address], [place], [address], 2022 14:16:51 10/07/20 22 2022 COMP METAB OLIC PANEL calcium 9.3 mg/dL 8.5-10 .5 Not Available [facility] ([facility]) [address], [place], [address], 2022 14:16:51 10/07/20 22 2022 COMP METAB OLIC PANEL bilirubin total 0.21 mg/dL 0.10-1 .00 Not Available [facility] ([facility]) [address] , [place], [address], 2022 14:16:51 10/07/20 22 2022 COMP METAB OLIC PANEL AST (SGOT) 8 U/L 0-37 Not Available [facility] ([facility]) [address], [place], [address], 2022 14:16:51 10/07/20 22 2022 COMP METAB OLIC PANEL ALT (SGPT) 24 U/L 0-65 Not Available [facility] ([facility]) [address], [place], [address], 2022 14:16:51 10/07/20 22 2022 COMP METAB OLIC PANEL alk phosphatase 104 U/L 46-116 Not Available [facility] ([facility]) [address] , [place], [address], 2022 14:16:51 10/07/20 22 2022 PT (PROT HROMB IN TIME) W INR prothrombin time 10.1 secon ds 9.3-11 .4 Not Available [facility] ([facility]) [address] , [place], [address], 2022 14:22:22 10/07/20 22 2022 PT (PROT [...] Mecha nical Heart Valve s Not Available [facility] ([facility]) [address] , [place], [address], 2022 14:22:22 10/07/20 22 10/08/2022 HCV RNA BY PCR, QN RFX [place] HCV log 10 TNP log10 _IU/m L Unabl e to calcu late resul t since non-n umeri c resul t obtai tommie for compo nent test. Not Available [facility] ([facility]) [address] , [place], [address], 10/08/2022 19:09:11 10/07/20 22 10/08/2022 HCV RNA BY PCR, QN RFX [place] test information Commen t . The quant itati ve range of this assay is 15 IU/mL to 100 compa on IU/mL . Not Available [facility] ([facility]) [address], [place], [address], 10/08/2022 19:09:11 10/07/20 22 10/08/2022 HCV RNA BY PCR, QN RFX [place] HCV genotype TNP Not indic ated Perfo rmed at: [facility] [place] [address] [place] [address] Lab Direc tor: Genevieve silver MD, Phone : [phone] Not Available [facility] ([facility]) [address], [place], [address], 10/08/2022 19:09:11 10/07/20 22 10/08/2022 HCV RNA BY PCR, QN RFX [place] [email or web address] HCV Not Detect ed IU/mL Not Available [facility] ([facility]) [address], [place], [address], 10/08/2022 19:09:11 Result Notes None recorded. 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 Active Connie Day null, [place] - [facility] [place] [facility] [place] 2 16:03:27 Flatulence , eructation and gas pain 744637840 Active Connie Day null, [place] - [facility] [place] [facility] [place] 2 16:03:27 Viral hepatitis C 10998006 Active Connie Day null, [place] - [facility] [place] 2 16:03:27 Biliary calculus 345961762 Active Connie Day null, [place] - [facility] [place] [facility] [place] 2 16:03:27 Abdominal pain 24718453 Active Connie Day null, [place] - [facility] [place] 2 16:03:27 Helicobact er pylori-ass ociated gastritis 919970518 Active 2022 Michael Marinelli PA-C [address], [place], [address] , [place] - [facility] [place] 3 15:10:44 Problem Notes [...] Address Organization Details Last Updated DateTime 12/17/2022 130864.47 g 151 mm[Hg] 100 mm[Hg] Xenia OZUNA [facility] [place] 12/17/2022 13:42:40 Date Recorded Body weight Provider Name an d Address Organization Details Last Updated DateTime 08/12/2022 905671.21 g Xenia OZUNA [facility] [place] 08/12/2022 11:07:52 Date Recorded Body weight Heart rate Systolic blood pressure Diastolic blood pressure Provider Name and Address Organization Details Last Updated DateTime 09/09/2022 615156.43 g 86 /min 141 mm[Hg] 100 mm[Hg] Xenia OZUNA [facility] [place] 09/09/2022 10:17:17 Social History [...] 4 completed Connie powers, [place] - [facility] [place] 10/02/2022 16:03:37 Td (adult), 5 Lf tetanus toxoid, preservative free, adsorbed 7 completed Connie powers, [place] - [facility] [place] 10/02/2022 16:03:37 Past Encounters Encounter ID Performer Location Encounter Start Date Encounter Closed Date Diagnosis/Indication Diagnosis SNOMED-CT Code Diagnosis ICD10 Code Diagnosis Note [id number] Mila Pedraza NP [facility] [address] [address] 08/12/2022 10:58:15 08/12/2022 11:20:42 Chronic hepatitis C 795955418 B18.2 -genotype 3, VL 1.9 M, F0-F1 by fibrosure. - Provided 1st 4 weeks of Mavyret- Counseled to avoid sharing toothbrush es, razors. etc. Must use barrier method when sexual encounter is unavoidabl e otherwise practice abstinence . [id number] Mila Pedraza NP [facility] [address] [address] 09/09/2022 10:03:50 09/09/2022 10:23:02 Chronic hepatitis C 730969465 B18.2 -genotype 3, VL 1.9 M, F0-F1 by fibrosure. - Provided 1st 4 weeks of Mavyret- Counseled to avoid sharing toothbrush es, razors. etc. Must use barrier method when sexual encounter is unavoidabl e otherwise practice abstinence . Viral hepatitis C 624342 07 B19.20 [id number] Mila Pedraza NP [facility] [address] [address] 2022 12:50:14 2022 13:13:21 Abdominal pain 70298965 R10.9 - has upcoming cholecyste ctomy scheduled Chronic hepatitis C 1283 03217 B18.2 -genotype 3, VL 1.9 M, F0-F1 by fibrosure. - Will check for SVR in 3 months- Counseled to avoid sharing toothbrush es, razors. etc. Must use barrier method when sexual encounter is unavoidabl e otherwise practice abstinence . Viral hepatitis C 491896 07 B19.20 [id number] Michael Marinelli PA-C [facility] [address] [address] 12/17/2022 13:31:15 12/17/2022 14:24:10 Chronic hepatitis C 983473149 B18.2 Abdominal pain 21634748 R10.9 Helicobact er pylori-associated gastritis 129680938 B96.81 Health Concerns Section Related Observation LastModified by Organization Detai ls LastModified Time None Recorded Concern Status LastModified by Organization Details LastModified Time None Recorded Advance Directives Directive None Recorded Payers Insurance Date Sequence Insurance Name Policy Number Policy Charles Covered Member ID Charles Member ID Guarantor Name 12/14/2022 1 [facility] (MEDICAID HMO) Lukasz Camacho [id number] Lukasz Camacho Notes Date Note Type Note [...] by fibrosure.(08/12/22) 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 Denies nausea, vomiting, headache or fatigue. Denies diarrhea, constipation or hematachezia. Denies abdominal pain. Reports hx of gall stones and hernia; however, surgery has been delayed until Hep C is treated. Mila Pedraza NP [address], [place], [address], [facility] & [place] 08/12/2022 13:15:00 09/09/2022 text/html PREVIOUS: Mr. 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 Denies nausea, vomiting, headache or fatigue. 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 Denies nausea, vomiting, headache or fatigue. [...] Denies nausea, vomiting, headache fatigue. 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 Denies nausea, vomiting, headache or fatigue. [...] ensuring sustained viral remission. Michael Marinelli PA-C [address], [place], [address], [facility] - [facility] [place] [facility] [place] 12/17/2022 15:14:31
--- OUTSIDE RECORDS SUMMARY | 2025-03-30 11:36 | XMS_ITS | Clinical Summary ---
Author Organization [facility] Address [facility] [place] [address] Phone Care Team Providers Care Rivet Flunky Name Role Phone Unavailable Primary Care Provider Unavailabl e Allergies Active Allergy Reactions Criticality Noted Date Comments Tetanus Vaccines And Toxoid Swelling Medium 03/18/20 17 Medications * This document contains information received from the source organization and may not represent a complete record from that organization. buPROPion (WELLBUTRIN XL) 150 mg Oral Tablet Sustained Release 24 hrIndications:O pioid use disorder, severe, dependence (HCC),Schizophr eniform disorder (HCC) Take 1 Tab by mouth every morning. 30 Tab 6 6 Active Additional Information Patient not taking.Reported on 06/28/2018 QUEtiapine (SEROQUEL) 200 mg Oral Tablet Take 1 Tab by mouth nightly. 30 Tab 6 6 Active Additional Information Patient not taking.Reported on 06/28/2018 meloxicam (MOBIC) 15 mg Oral TabletIndicatio ns:Acute low back pain,Chronic midline posterior neck pain,Left shoulder pain TAKE 1 TAB BY MOUTH DAILY. 30 Tab 6 6 Active Additional Information Patient not taking.Reported on 06/28/2018 cyclobenzaprine (FLEXERIL) 10 mg Oral Tablet TAKE 1 TAB BY MOUTH EVERY 8 HOURS NEEDED FOR MUSCLE SPASMS. 90 Tab 1 7 Active Additional Information Patient not taking.Reported on 06/28/2018 Active Problems Patient Care Coordination No te Formatting of this note migh t be different from the original. Contracts- 01/23/16 Kita- 05/23/2016 Reference #: [id number] UDS- 05/23/2016 Suboxone 8/2 tabs approved 04/18/2016-07/19/2016 Problem Noted Date Diagnosed Date Alcohol screening 05/05/2016 Overview (03/11/2017): 03/11/17 Denies alcohol use. Screening for depression 05/05/2016 Overview (05/05/2016): 05/05/16 Depression Screening: In the past two weeks, how often have you felt down, depressed, or hopeless? None Have you felt little interest or pleasure in doing things? no Encounter for dietary counseling and surveillanc e 05/05/2016 Exercise counseling 05/05/2016 Tobacco abuse 05/05/2016 Overview (05/05/2016): stop Hepatitis B immune 02/13/2016 Chronic hepatitis C without hepatic coma 016 Overview (02/13/2016): Referred to GI Opioid use disorder, severe, dependence 01/30/20 16 Overview (03/12/2017): 03/11/17 In October 2016 pulled over for motor vehicle violation. Discovered he had a warrant for a missed court date. Had to do a pay and stay for a week. Detox'ed off suboxone in shelter. Has not been going to 12 [facility]. Has been going to counseling. Now on parol. Last opiate use was a 03/04/17. Used heroin IV at that time about 0.05 gram. Today offered vivitrol as a MAT option but would not recommend using buprenorphine products. Left today without leaving a UDS 10/29/2016 Attempted to call pt in for pill count and drug screen. Pt did not return my call or show up at the office with medication. 10/22/16 Has been to 12 [facility] and counseling, has logs. Mood and rapid thoughts improved. Sleep is better. kita and counts ok. Has used heroin. Last use was past Thursday. Reports that is the only use since last visit. Discussed anonymous call and he denies selling or giving his suboxone away. 10/08/16 Counts and kita ok Has been 7 days without any illegal substances. Has been to counseling and 12 [facility]. Does not have logs Still feeling improved from a psych stand point. Racing thoughts are better. 10/02/2016 Spoke with Brice Tuttle who states that pt has been compliant with all sessions and he is currently there now for his appointment. 09/24/16 Reports being a week without heroin. Only taking buprenorphine/naloxone o/w. Yesterday took melxoicam, bupropion, flexeril, seroquel at the same time and passed out about 1/2 hour later. Not seen in ER. No seizure activity. Resolved Spontaneously. No prodrome other than being tired. Now feels ok. Has been to counseling and 12 steps, has logs kita and 12 steps ok. 09/10/16 Has an appt with case management and counselor tomorrow. Has not had one since last vist Has not been to 12 steps last visit. Has logs. Currently is living out of his truck over the past couple of days. Has been using heroin every other day. Counts and kita ok 08/25/16 Relapsed 08/16/16. Using heroin everyday since. Injecting 1/4 gram daily. Relapse initiated by racing thoughts, stuttering and wanting to shut it all down Previous UDS positive and confirmation positive for morphine. Has been to 12 steps. No logs Has been to counseling. Kita ok 08/01/2016 Spoke with Brice Tuttle who confirmed that pt has been to all his appointments and has more appointments set up. 07/23/16 Has been to counseling Has been to [facility]. No logs. Counts and kita ok. 06/23/16 Has been to 12 [facility] and counseling. Does not have logs. Counts and Kita ok Goes to court tomorrow for driving on a suspended license 05/23/16 Has been to 12 [facility] and counseling. Counts and kita ok No issues or anticipated issues Has logs 05/08/2016 Called Brice Tuttle and pt has been attending all his regular visits and has another appointment on 05/15/2016. 05/05/16 Counts are ok. Last refill 05/03/16 kita shows rx for hydrocodone filled in [place] on 04/10/16. He did not report this rx. His UDS did not reflect the medicine. He reports he threw them away. He got the rx due to dental work. Exam does reflect recent dental work. Understands that in the future all narcotic meds must be reported and that I will manage his pain management in the future. Furthermore He must bring any left over opiate meds to me. Does not have logs today Saw Brice Tuttle 05/01/16 Has been to 12 [facility] 04/17/16 Saw counselor on 04/04 Has been to 12 [facility] Has logs Having a lot of cravings kita pagan Has changed his phone and deleted numbers. Has been doing behavior modifications. 04/03/16 Does not have logs. Kita ej Has not been to counseling but one is scheduled. 03/26/16 Pt here for pill count and drug screen. Pt only brought in 10 pills and should have 14, pt is short 4 pills. Pt left urine for drug screen. Reports he had taken extra b/c of a bad sun burn. Notes Recorded by Shawn Gandhi MD on 03/28/2016 at 12:59 PM Discussed in office. 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 She expressed concerns with Lukasz's ability to comply with sobriety and reports that he has expressed that he only feels normal when he uses heroin and that he does not have plans to stop using. Will work to help him to see a psychiatrist with Brice Tuttle when available to help with underlying psychiatric disorder. 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 Reports that he has ended a relationship that has been a trigger to use in the past. kita ej Has logs Has used heroin since last visit Has been to 12 [facility] and next counseling is 03/20/16 Still seeing PO 02/28/16 Has been to 12 [facility]. Logs ok. kita TREVNIO observed 02/25/2016 Pt had initial intake on 02/19/16 and next appointment is on 03/04/2016: Brice Tuttle refusing to see pt stating that he needs a higher level of care 02/20/16 Was unable to provide a urine on several attempts while being observed. While waiting provided an unobserved urine. Asked him to provide an additional observed specimen and he was unable at this time. He will return today to provide a urine specimen. Returned to provide observed UDS. Tested same as first urine. Did go to [facility] and has follow up scheduled. Did not go to AA/NA. Reports that he used heroin once since last visit. Kita pagan. Counts unavailable. 02/13/16 Has not been to AA/NA. Will attempt this. Has appt with [facility] 02/19/16 Counts and kita pagan 02/06/16 Had problems getting meds due to prior auth. Did not start until Thursday. Wound up taking one daily. That did not last and continued to have withdraw. Out of meds yesterday and used heroin. Did not use on the days he took buprenorphine/naloxone. Heroin habit is about 1 gm IV daily. Has not established AA/NA. Discussed that this is manditory and gave him a log. Needs to reestablish counseling. Has tabs. Counts are not available. 01/30/16 Sees Mar Barcenas at [phone] At [facility] [employer] For counseling Does go to AA/NA parole officer Markel [phone] 01/23/16 HPI: Patient is interested in starting in the Suboxone program. Patient is not currently on Suboxone. Substance use Hx: (type, quant, route): Heroin by IV and .5 gram a day Frequency:daily How long: Has been using Heroin for 7 years or longer Longest sobriety: one month, patient was using something else during this time. Progression: Patient was on pain pills before this, it is the easiest thing to get. Last exposure: Yesterday evening. (type, quant, route): opiates, pain pills, for body aches. Loratabs, percs. Takes by snorting Frequency: Occationally How lon years or longer, off and on Longest sobriety: 3-4 months Progression: Body aches and mental condition. Last exposure: 2 months ago patient does not drink alcohol. Patient has in past used Spice, Meth, Marijuana, Acid, Crystal, Speed, Suboxone from street. Patient has tried everything thing. Patient has tried Subutex. History of substance use related seizures: no Substances: None (Tolerance: A state of adaptation in which exposure to a drug induces changes that result in diminution of one or more of the drug's effects over time.) Evidence of tolerance to any substance: yes Substances: Opiates, Heroin, Crystal, speed (Dependence: A state of adaptation that is manifested by a drug class specific withdrawal syndrome that can be produced by abrupt cessation, rapid dose reduction, decreasing blood level of the drug, and / or administration of an antagonist.) Evidence of dependence to any substance: yes Substances: Heroin, Opiates, Speed, Crystal. (Substance abuse: A maladaptive pattern of substance use leading to clinically significant impairment or distress, as manifested by one or more of the following, occuring with in a 12-month period: 1. Recurrent substance use resulting in a failure to fulfill major role obligations at work, school, or home. 2. Recurrent substance use in situations in which it is physically hazardous. 3. Recurrent substance- related legal problems. 4. Continued substance use despite having persistent or recurrent social or interpersonal problems caused or exacerbated by the effects of the substance. Evidence of substance abuse: yes Substances: Heroin, Opiates, Speed Evidence of opioid use disorder: yes (if yes insert DSM5 check list) DSMV Opioid Use Disorder diagnostic criteria Opioid Use Disorder requires at least 2 criteria be met within a 12 month period 1. Opioids are often taken in larger amounts or over a longer period of time than intended. yes 2. There is a persistent desire or unsuccessful efforts to cut down or control opioid use. yes 3. A great deal of time is spent in activities necessary to obtain the opioid, use the opiod, or recover from its effects. yes 4. Craving, or a strong desire to use opioids. yes 5. Recurrent opioid use resulting in failure to fulfill major role obligations at work, school, or home. yes 6. Continued opioid use despite having persistent or recurrent social or interpersonal problems caused or exacerbated by the effects of opioids. -Patient has issues mentally, so using helps him stay normal so he can work and function. He does not like being around people. 7. Important social, occupational or recreational activities are given up or reduced because of opioid use. yes 8. Recurrent opioid use in situations in which it is physically hazardous. yes 9. Continued use despite knowledge of having a persistent or recurrent physical or psychological problem that is likely to have been caused or exacerbated by opioids. yes 10. * Tolerance as defined by either of the following: A. A need for markedly increased amounts of opiods to achieve intoxication or desired effect. yes B. Markedly diminished effect with continued use of the same amount of an opioid. yes 11. * Withdrawal, as manifested by either of the following: A. The characteristic opioid withdrawal syndrome. yes B. The same (or a closely related) substance are taken to relieve or avoid withdrawal symptoms. yes * This criterion is not considered to be met for those individuals taking opioids solely under appropriate medical supervision. Severity: Mild: 2-3 symptoms, Moderate: 4-5 symptoms, Severe: 6 or more symptoms History of opioid withdrawal: yes (If yes insert DSM5 criteria) DSM-5 Criteria for Opioid Withdrawal A. Either of the following 1. Cessation of (or reduction in) opioid use that has been heavy and prolonged (several weeks or longer). yes 2. Administration of an opioid antagonist after a period of opioid use. yes B. Three (or more) of the following, developing within minutes to several days after Criterion A: 1. Dysphoric mood. yes 2. Nausea or vomiting. yes 3. Muscle aches. yes 4. Lacrimation or rhinorrhea. yes 5. Pupillary dilation, piloerection, or sweating. yes 6. Diarrhea. no 7. Yawning. yes 8. Fever. yes 9. Insomnia. No, patient tends to sleep way to much C. The signs or symptoms in Criterion B cause clinically significant distress or impairment in social, occupational, or other improtant areas of functioning. D. The signs or symptoms are not due to another medical condition and are not better accounted for by another mental disorder, including intoxication or withdrawal from another substance. History of overdose: no Substances: none Treatment history: (inpatient / outpatient, MAT, 12 steps, location, dates) Patient has been to out patient treatment in [place]. Patient is currently in counseling with them. Patient has been to AA in the past, he does not like AA due to being around people. Consequences of drug use: Patient has been to shelter due to drug use. How is pt feeling? Today patient is doing well and starting to withdrawal. He used last night so he is not doing bad. Currently intoxicated? (if yes list symptomology): Patient used last night. Insight, motivation, readiness to change? Patient is ready to get help. States it is going to be an upward carias he has been using drugs of some sort for 20 years. Stage of change (precontemplative, contemplative, preparative, action, maintenance, relapse): Precontemplative. Past psychiatric history: (Dx, duration, course, treatment): Yes, Patient is currently being treatment for this. Patient took himself off medications. Previous psych hospital admissions: no Physical abuse hx: no TP: linear, TC: logical, mood: ok , affect: Congruent Sexual history: Sexually active: yes Length of time with current partner: Single Number of partners in lifetime: 30 Practices safe sex: no High risk sexual behavior? no STD hx: yes Any current STD symptoms: no Sexual abuse hx: no Social recovery environment: Living situation: Patient is living with mother right now. Family / social support: Yes, mother Relationships: (Single / / / ): Single Children: 1 Problems at school or work? No, he does not work right now, the state took away licence. He did not have insurance. Relational problems with spouse or children? no Involvement in violence? Not right now, but has been in the past. States its the lifestyle Legal charges for public intox, altercations, possession or DUI? Yes, on parole. Has three years over his head for possession. Has had other legal issues in the past. (he does not like the Government and there laws) Financial problems? Yes, no job Partner with substance use disorder? 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 Stopped this one month ago his licence was taken. Schizophreniform disorder 01/30/2016 Overview (03/12/2017): Has seen Brice Tuttle. Taking wellbutrin and seroquel intermittently. Still using heroin intermittently. Recommend taking wellbutrin and seroquel on a regular basis. 10/08/16 Sees counselor. Now back on seroquel and wellbutrin XL and symptoms improving Resolved Problems Problem Noted Date Diagnosed Date Resolved Date Hepatitis C antibody test positive 01/31/2016 02/13/2016 Overview (01/31/2016): Confirmatory testing ordered Hepatitis B antibody positive 01/31/2016 02/13/2016 Overview (01/31/2016): Hep B surface Ab ordered Medical History Medical History Date Comments Chronic hepatitis C without hepatic coma (HCC) Social History Tobacco Use Types Packs/Day Years Used Date Smoking Tobacco: Every Day Cigarettes Smokeless Tobacco: Never Tobacco Cessation:Ready to Q uit: No; Counseling Given: Yes Alcohol Use Standard Drinks/Week Comments No 0 (1 standard drink = 0.6 oz pur e alcohol) Sexually Active Control Partners Comments Yes Other-see comments Female none Sex and Gender Information Value Date Recorded Sex Assigned at Not on file Legal Sex Male 5:20 AM EDT Gender Identity Not on file Sexual Orientation Not on file Obstetrics History Last Filed Vital Signs Vital Sign Reading Time Taken Comments Blood Pressure 172/98 06/28/2018 9:26 AM EDT Pulse 102 06/28/2018 9:26 AM EDT Temperature 36.9 C (98.4 F) 06/28/2018 7:22 AM EDT Respiratory Rate 18 06/28/2018 9:26 AM EDT Oxygen Saturation 99% 06/28/2018 9:26 AM EDT Inhaled Oxygen Concentration - - Weight 81.6 kg (180 lb) 06/28/2018 7:22 AM EDT Height 177.8 cm (5' 10 ) 06/28/2018 7:22 AM EDT Body Mass Index 25.83 06/28/2018 7:22 AM EDT Plan of Treatment Health Maintenance Due Date Last Done Comments DTaP/TDaP/Td (1 - Tdap) 1992 Hepatitis A Vaccine (1 of 2 - Risk 2-dose series) 1992 Hepatitis B Vaccine (1 of 3 - 19+ 3-dose series) 1992 Pneumococcal Vaccine 50+ (1 of 2 - PCV) 1992 Annual Wellness Exam 03/11/2018 03/11/2017 Cologuard 2018 Colon Cancer Screening 2018 Colonoscopy 2018 FIT 2018 Sigmoidoscopy 2018 Virtual Colonography 2018 Zoster (1 of 2) 2023 COVID-19 Vaccine ( - 2023-2 5 season) 2024 Influenza Vaccine (Season Ended) 2025 Meningococcal B Vaccine Aged Out No l onger eligible based on patient's age to complete this topic Goals Goal Patient Goal Type Associated Problems Recent Progress Patient-Stated? Author Maintain a healthy diet, exercise regularly and maintain an ideal body weight General No Alessia Valentine, JOSE ANTONIO Stay Tobacco Free Lifestyle No Alessia Valentine CCMA Insurance [facility] [place] [address] [place] [address]
--- OUTSIDE RECORDS SUMMARY | 2025-03-30 11:36 | XMS_ITS | Clinical Summary ---
Author Organization Healthcare Address [address] [place] [address] Care Team Providers Care Bottom Turning Lathe Turner Name Role Phone Kyle Moreno MD Primary Care Provider + [phone] Immunizations Immunization Administration Dates Next Due Hep B, adult 09/28/2014 Family History Medical History Relation Name Comments Other cancer Other Relation Name Status Comments Other Social History Tobacco Use Types Packs/Day Years Used Date Smoking Tobacco: Every Day Alcohol Use Standard Drinks/Week Comments Yes 0 (1 standard drink = 0.6 oz pur e alcohol) Sex and Gender Information Value Date Recorded Sex Assigned at Not on file Legal Sex Male 6:43 PM EDT Gender Identity Not on file Sexual Orientation Not on file Last Filed Vital Signs Vital Sign Reading Time Taken Comments Blood Pressure - - Pulse - - Temperature - - Respiratory Rate - - Oxygen Saturation - - Inhaled Oxygen Concentration - - Weight 78.5 kg (172 lb 15.9 oz) 09/28/2014 8:47 AM EST Height 177.8 cm (5' 10 ) 08/24/2014 9:54 AM EST Body Mass Index 24.82 08/24/2014 9:54 AM EST Plan of Treatment Not on file Care Teams Bottom Turning Lathe Turner Relationship Specialty Start Date End Date Kyle Moreno MD [address] [place] [id number] PCP - General 02/22/21
--- NOTE | 2025-03-30 11:50 | EXP.PAIN.OV ---
HPI Data of Consult Patient: new to practice Consult date: 03/30/25 Requesting Physician: Luanne Felix APRN Primary Care Provider: Torin Morse APRN Reason for consult: Low back pain, right hip pain, right upper thigh pain History of present illness: Mr. Camacho is a 49 year old male who presents today as a new patient. He is a referral from Torin Burleson's office. Today he rates his pain at a 7 out of 10. Patient states he has been experiencing chronic low back pain that goes into his right hip and right upper thigh. Patient denies any specific trauma or injury that initially started this. Patient has tried [id number] Tylenol along with heat and ice topicals with minimal relief. Patient has had physical therapy with no additional improvement as well as some injections in the past with no improvement. Patient states he was actually seen by our office and we had tried the injections and that they would help but typically when the pain came back it was much worse. He states some of the injections were more temporary than others. Patient does state this is still the same pain that we have previously treated and that it is pretty much remained continuous. Patient has updated imaging. Patient is interested in any help we may be able to provide as it is interfering with his ability perform activities of daily living such as cooking and cleaning. Patient is not on any scheduled medications. He is prescribed baclofen 10 mg and Celebrex 50 mg from his primary care. He denies any heart or kidney issues. Patient states he has also used multiple muscle relaxers Tylenol, lidocaine patches, TENS unit at home with minimal changes. Patient has also been seen by the chiropractor and states that it did typically help but a lot of times it would only be about a day of improvement. His Wilfredo has been reviewed and is appropriate. Pain at rest (0-10 scale): 7 Has patient had previous pain injection?: No Conservative treatment options previously tried: Home exercise plan (Longer than 12 weeks), Physical Therapy (No improvement) and Chiropractor (Temporary relief) cc:: CC: Luanne Felix APRN [facility] Disclaimer: The information contained in this section may have been updated after the patient was seen, as this information can be updated by other users. Medical History Outbursts of anger Pre-diabetes History of torsion of testis Vitamin D deficiency Surgical History History of laparoscopic cholecystectomy History of hernia repair Hx of esophagogastroduodenoscopy Family History Other No significant family history Social History Smoking Status: Current every day smoker tobacco type: cigarettes packs per day: 1 second hand exposure: No alcohol intake: current substance use type: former substance user, heroin, IV drugs and methamphetamine current occupational status: employed Travel in the last 8 weeks?: None household members: family housing: house lives independently: Yes marital status: single caffeine: Yes special barrie needs: No agree to transfusion: No do you feel safe at home: Yes victim of physical abuse: No victim of emotional abuse: No victim of sexual abuse: No would you like helpful sources: No Review of Systems Review of Systems Review of systems:: pertinent systems reviewed and negative unless documented below Review of systems (narrative): Review of Systems: General: No recent weight changes, no fever, no sleep disturbances Respiratory: No cough, no shortness of air, no recurring pulmonary infections Cardiovascular/peripheral vascular: No chest pain, no palpitations, no edema, no shortness of breath Gastrointestinal: No new onset incontinence, normal bowel movements reported Genitourinary: No new onset incontinence Musculoskeletal: Low back pain, right hip pain, right upper thigh pain Psychiatric: [Normal mood/affect] Neurological: [Denies weakness in extremities], [denies balance issues] Meds Home Medications and Allergies Home Medications ?Medication ?Instructions ?Recorded ?Confirmed ?Type albuterol sulfate 90 mcg/actuation 2 puff inhalation Q8H PRN 01/20/25 03/08/25 Rx aerosol inhaler shortness of breath or wheezing #8.5 grams baclofen 10 mg tablet See Rx Instructions .Route 01/20/25 03/08/25 Rx .COMPLEX #90 tabs fluconazole 150 mg tablet 150 mg PO WEEKLY 4 weeks #4 tabs 01/20/25 03/08/25 Rx terbinafine HCl 1 % topical cream 1 applic topical BID 6 weeks #30 01/20/25 03/08/25 Rx grams celecoxib 50 mg capsule 50 mg PO BID #60 caps 01/25/25 03/08/25 Rx clonidine HCl 0.2 mg tablet 0.2 mg PO TID #90 tabs 03/08/25 03/08/25 Rx lamotrigine 100 mg tablet 100 mg PO DAILY #30 tabs 03/08/25 03/08/25 Rx (Lamictal) ziprasidone HCl 40 mg capsule 40 mg PO BID #60 caps 03/08/25 03/08/25 Rx (Geodon) montelukast 10 mg tablet See Rx Instructions .Route 03/17/25 Rx .COMPLEX #90 tabs New Prescriptions to Start Prescriptions: Allergies Allergy/AdvReac Type Severity Reaction Status Date / Time No Known Allergies Allergy Verified 03/08/25 08:58 Objective Narrative: Physical Exam: General: Alert and oriented x3, no acute distress, pleasant and cooperative Lungs: Respirations even and unlabored, symmetrical chest expansion Eyes: PERRL Musculoskeletal: Flexion and extension of lumbar [spine] somewhat guarded secondary to pain, [antalgic gait noted] point tenderness along right SI with positive right Narda's, Sanjay's, Gaenslen's, compression and distraction exam Neurological: Speech clear, no gross sensory deficit Additional findings Additional findings: FINDINGS: Multiplanar MR imaging of the lumbar spine was performed without contrast. On the sagittal T2-weighted images, there is abnormal decreased signal at L3-4. The vertebrae are of normal height. The vertebral alignment is normal. 12-L1: There is no significant canal stenosis or neuroforaminal narrowing. L1-2: There is no significant canal stenosis or neural foraminal narrowing. L2-3: There is no significant canal stenosis or neural foraminal narrowing. L3-4: Mild diffuse disc bulge. Mild to moderate right and mild left neuroforaminal narrowing. L4-5: Mild disc bulge with mild bilateral neuroforaminal narrowing. L5-S1: There is no significant canal stenosis or neural foraminal narrowing. IMPRESSION: Degenerative changes at L3-4 and L4-5 as above. No significant change from previous. Reviewed, Interpreted and Dictated by Augusto Mabry MD Transcribed by Mady Farr Authenticated and [facility] Assessment and Plan *Assessment and plan (1) Hip pain, right: Status: Acute Category: Medical Code(s): M25.551 - Pain in right hip (2) Sacroiliitis: Status: Acute Category: Medical Code(s): M46.1 - Sacroiliitis, not elsewhere classified (3) Degenerative disc disease, lumbar: Status: Acute Category: Medical Code(s): M51.369 - Other intervertebral disc degeneration, lumbar region without mention of lumbar back pain or lower extremity pain (4) Greater trochanteric bursitis: Status: Acute Category: Medical Code(s): M70.60 - Trochanteric bursitis, unspecified hip Plan Patient did have increased pain in his low back with limited range of motion and a positive right Narda's, Sanjay's, Gaenslen's, compression and distraction exam as well as point tenderness along his right greater trochanteric bursa. I did discuss with him that I do believe he would benefit from a right SI and right bursa injection. Patient states he has been through all that and not necessarily interested in doing this again. I did discuss with him regarding the compounded cream however he states he is not necessarily interested in that. I did discuss that we do primarily do injections. Patient stated that he does frequently use ibuprofen or anti-inflammatories but it does not seem to much make improvement. I did discuss with him about trying diclofenac 75 mg twice a day. Patient was agreeable to this option. I will send in a 2-week dose and he was counseled to discontinue all other NSAIDs while taking this medication and to take it with food to minimize GI upset. Patient will return to clinic in 2 weeks for reevaluation of symptoms and plan of care. Patient has been instructed to contact the clinic with any concerns before the next appointment. Dr. Gallo has reviewed this note and agrees with this plan of care. This note was dictated using voice recognition software and make contain errors or omissions. All injections are used with Lidocaine, Bupivacaine and dexamethasone. Occasionally urine drug screen is needed to verify patient's compliance with our office pain contract. This is ordered based off specific treatments related to chronic pain with the potential to abuse certain medications.
[2025-03-30 12:03] VITALS: BP 105/65; PULSE 70; RESP 18; O2SAT 97; BMI 29.9
== END 2025-03-30 23:59 | disposition home or self-care (01) ==
PROVIDERS: PCP Nurse Practitioner Family; Visit Provider Nurse Practitioner Family
DX: M70.61 Trochanteric bursitis, right hip (principal); M46.1 Sacroiliitis, not elsewhere classified; M51.360 Other intervertebral disc degeneration, lumbar region with discogenic back pain only; Z79.1 Long term (current) use of non-steroidal anti-inflammatories (NSAID); Z79.899 Other long term (current) drug therapy
CPT/HCPCS: 99202; G0463

== ENCOUNTER 2025-04-05 12:54 | Emergency (ER) | payer OTHER, SELFPAY ==
[2025-04-05] VITALS (9 sets, daily range): BP systolic 106–127; BP diastolic 72–87; PULSE 69–112; RESP 16–22; TEMP 36.9; O2SAT 97–99; BMI 29.9
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
--- OUTSIDE RECORDS SUMMARY | 2025-04-05 13:04 | XMS_ITS | Clinical Summary ---
Author Organization Healthcare Address [address] [place] [address] Care Team Providers Care Pipe Crew Foreman Name Role Phone Kyle Moreno MD Primary Care Provider + [phone] Immunizations Immunization Administration Dates Next Due Hep [...] of Treatment Not on file Care Teams Pipe Crew Foreman Relationship Specialty Start Date End Date Kyle Moreno MD [address] [place] [address] PCP - General 02/22/21
--- OUTSIDE RECORDS SUMMARY | 2025-04-05 13:04 | XMS_ITS | Clinical Summary ---
Author Organization [facility] Address [address] [place] [address] Care Team Providers Care Loading Rack Supervisor Name Role Phone Unavailable Primary Care Provider [...] Not on file Insurance [address] [id number] [employer] [facility] Advance Directives * Full Code (Latest Code Status on File) Date Activated Date Inactivated Comments 11/29/2018 2:56 AM 12/01/2018 6:10 PM
--- NOTE | 2025-04-05 13:06 | CT_ITS ---
FINAL REPORT TECHNIQUE: Noncontrast exam This study was performed with techniques to keep radiation doses as low as reasonably achievable, (ALARA). Individualized dose reduction techniques using automated exposure control or adjustment of mA and/or kV according to the patient''s size were employed. CLINICAL HISTORY: dizziness FINDINGS: No abnormal density is seen. Ventricles are normal. There is no hemorrhage. No mass effect is seen. Bone windows show no evidence of fracture. IMPRESSION: No acute findings Reviewed, Interpreted and Dictated by Mayra Yates MD Transcribed by Stacey Gomez Authenticated and . [facility]
--- NOTE | 2025-04-05 13:07 | XR_ITS ---
FINAL REPORT TECHNIQUE: Single view chest CLINICAL HISTORY: short of breath FINDINGS: A single view of the chest was obtained. The heart and mediastinum are within normal limits. The lungs are clear. There is no pneumothorax. IMPRESSION: No acute cardiopulmonary process. Reviewed, Interpreted and Dictated by Mayra Yates MD Transcribed by Stacey Gomez Authenticated and [facility]
--- NOTE | 2025-04-05 13:10 | [facility].EDCP ---
Discharge Plan Disposition Patient Disposition: Left Against Medical Advice Prescriptions Prescriptions: No Action albuterol sulfate 90 mcg/actuation HFA aerosol inhaler 2 puff inhalation Q8H PRN (Reason: shortness of breath or wheezing) Qty: 8.5 3RF Rx Instructions: patient needs an appt before anymore refills fluconazole 150 mg tablet 150 mg PO WEEKLY 28 Days Qty: 4 0RF terbinafine HCl 1 % cream 1 applic topical BID 42 Days Qty: 30 0RF celecoxib 50 mg capsule 50 mg PO BID Qty: 60 2RF ziprasidone HCl [Geodon] 40 mg capsule 40 mg PO BID Qty: 60 2RF Rx Instructions: give with food (meal/snack) lamotrigine [Lamictal] 100 mg tablet 100 mg PO DAILY Qty: 30 2RF clonidine HCl 0.2 mg tablet 0.2 mg PO TID Qty: 90 2RF montelukast 10 mg tablet See Rx Instructions .ROUTE .COMPLEX Qty: 90 3RF Dose Instruction: Take 1 tablet by mouth once daily Rx Instructions: Take 1 tablet by mouth once daily baclofen 10 mg tablet See Rx Instructions .ROUTE .COMPLEX Qty: 90 0RF Dose Instruction: Take 1 tablet by mouth three times daily as needed for muscle spasm Rx Instructions: Take 1 tablet by mouth three times daily as needed for muscle spasm diclofenac sodium 75 mg tablet,delayed release (DR/EC) 75 mg PO BID Qty: 28 0RF Referrals Follow up/Referrals: Torin Morse APRN [Primary Care Provider, Family Practice] - See instructions Lit Ospina MD [Staff Physician, Cardiology] - See instructions aWlt Fonseca MD [Physician, Pulmonology] - See instructions Activity Restrictions/Add. Instructions Additional Instructions/Restrictions: Patient to follow-up with PCP to follow-up on blood cultures and exertional shortness of breath as we talked about. You had a suspicious lung nodule on the CT scan as well so I put Dr. Maxwell information on the paperwork. Clinical Impressions Clinical Impression: SOB (shortness of breath) on exertion, Near syncope, COPD mixed type Print Language Print Language: Croatian Discharge ED Provider: Luanne Dumont HPI <Marilyn Hicks (ED), CLINICAL REVIEWER - Last Filed: 04/05/25 17:21> General Chief Complaint: Shortness of Breath/Dyspnea Stated Complaint: sweating, body numbness, poss low BP, SOA, dizzy Time Seen by Provider: 04/05/25 13:00 History of Present Illness HPI narrative: 49-year-old male presents to the ED today for complaint of weakness, shortness of air, body aches, increased sweating, dizziness and almost blacked out today prior to arrival. He states that he had nausea, diarrhea sore throat cough yesterday as well. He says he has had low blood pressure in the past and he was concerned about this. He says this did not feel the same. He is unsure about the fever. Patient has history of COPD. He does tell me that he is on a new arthritis medication for inflammation. He is unsure what it is but it starts with a D. Related Data Previous Rx's ?Medication ?Instructions ?Recorded albuterol sulfate 90 mcg/actuation 2 puff inhalation Q8H PRN 01/20/25 aerosol inhaler shortness of breath or wheezing #8.5 grams fluconazole 150 mg tablet 150 mg PO WEEKLY 4 weeks #4 tabs 01/20/25 terbinafine HCl 1 % topical cream 1 applic topical BID 6 weeks #30 01/20/25 grams celecoxib 50 mg capsule 50 mg PO BID #60 caps 01/25/25 clonidine HCl 0.2 mg tablet 0.2 mg PO TID #90 tabs 03/08/25 lamotrigine 100 mg tablet 100 mg PO DAILY #30 tabs 03/08/25 (Lamictal) ziprasidone HCl 40 mg capsule 40 mg PO BID #60 caps 03/08/25 (Geodon) montelukast 10 mg tablet See Rx Instructions .Route 03/17/25 .COMPLEX #90 tabs diclofenac sodium 75 mg 75 mg PO BID #28 tabs 03/30/25 tablet,delayed release baclofen 10 mg tablet See Rx Instructions .Route 04/03/25 .COMPLEX #90 tabs Allergies Allergy/AdvReac Type Severity Reaction Status Date / Time No Known Allergies Allergy Verified 03/08/25 08:58 [facility] <Marilyn Hicks (ED), CLINICAL REVIEWER - Last Filed: 04/05/25 17:21> PFS Disclaimer: The information contained in this section may have been updated after the patient was seen, as this information can be updated by other users. Medical History Outbursts of anger Pre-diabetes History of torsion of testis Vitamin D deficiency Surgical History History of laparoscopic cholecystectomy History of hernia repair Hx of esophagogastroduodenoscopy Family History Other No significant family history Social History Smoking Status: Current every day smoker tobacco type: cigarettes packs per day: 1 second hand exposure: No alcohol intake: current substance use type: former substance user, heroin, IV drugs and methamphetamine current occupational status: unemployed Travel in the last 8 weeks?: None household members: family housing: house lives independently: Yes marital status: single caffeine: Yes special barrie needs: No agree to transfusion: No do you feel safe at home: Yes victim of physical abuse: No victim of emotional abuse: No victim of sexual abuse: No would you like helpful sources: No Have you lived/traveled outside [place] in past 30 days?: No Contact w/someone who lives/traveled outside US past 30 days?: No Exposure to someone with infectious disease in past 14 days?: No Do you have a fever (greater than 100.4 F or 38 C)?: No Have you tested positive for COVID-19?: No Exposed to someone with COVID-19 in past 14 days?: No Do you have a sore throat?: No Do you have a cough?: No Do you have any weakness?: Yes Do you have any diarrhea?: No Are you experiencing any unusual bleeding?: No Do you have any muscle aches/pain?: No Do you have any abdominal pain?: No Are you experiencing loss of taste or smell?: No Other Medical History Have you received the Flu Vaccine for this season: No Have you received the Pneumonia Vaccine: No <Marilyn Hicks (ED), CLINICAL REVIEWER - Last Filed: 04/05/25 17:21> ROS Obtained: Yes Systems reviewed as appropriate & no additional complaints except as documented Constitutional Constitutional: Reports as per HPI Physical Exam <Marilyn Hicks (ED), CLINICAL REVIEWER - Last Filed: 04/05/25 17:21> General General appearance: alert and anxious Head Head exam: atraumatic and normocephalic Eye Eye exam: Present PERRL and EOMI ENT ENT exam: Present normal oropharynx and mucous membranes moist Neck Neck exam: Present normal inspection, full ROM and trachea midline Respiratory Respiratory exam: Present normal lung sounds bilaterally Cardiovascular Cardiovascular exam: Present regular rate, normal rhythm, normal heart sounds, +S1 and +S2 Abdominal Exam Abdominal exam: Present soft and normal bowel sounds Extremities Exam Extremities exam: Present normal inspection, full ROM and normal capillary refill Neurological Exam Neurological exam: Present alert, oriented X3 and normal gait Psychiatric Psychiatric exam: Present anxious Skin Skin exam: Present warm, dry and intact HEART Score <Marilyn Hicks (ED), CLINICAL REVIEWER - Last Filed: 04/05/25 17:21> HEART Score HEART Score assessment performed?: Yes History (anamnesis): Slightly suspicious ECG: Normal Age: 45-65 years Risk factors: 1-2 risk factors Troponin: </= normal limit HEART Score: 2 <Leon Hurtado MD - Last Filed: 04/06/25 07:19> HEART Score HEART Score: 2 Critical Care <Marilyn Hicks (ED), CLINICAL REVIEWER - Last Filed: 04/05/25 17:21> Critical Care Time Critical Care Time: No Medical Decision Making <Marilyn Hicks (ED), CLINICAL REVIEWER - Last Filed: 04/05/25 17:21> Wilfredo Inquiry Pt receiving controlled substance: No Wilfredo was queried for this patient: No Vital Signs Vital Signs: 04/05/25 13:00 04/05/25 13:05 04/05/25 13:13 Temperature 98.4 F 98.4 F Temperature Source Oral Oral Pulse Rate 110 H 112 H Pulse Rate [Right] 112 H Respiratory Rate 20 22 22 Blood Pressure 121/86 121/86 Blood Pressure [Right Arm] 121/86 Blood Pressure Mean 94 Blood Pressure Mean [Right Arm] 97 Blood Pressure Source Automatic Cuff Blood Pressure Source [Right Arm] Automatic Cuff Blood Pressure Position Supine Blood Pressure Position [Right Arm] Supine 02 Sat by Pulse Oximetry 99 97 97 Oxygen Delivery Method Room Air Room Air 04/05/25 13:31 04/05/25 14:00 04/05/25 15:12 Temperature Temperature Source Pulse Rate 85 83 80 Pulse Rate [Right] Respiratory Rate 18 18 Blood Pressure 117/83 117/87 120/83 Blood Pressure [Right Arm] Blood Pressure Mean 92 95 Blood Pressure Mean [Right Arm] Blood Pressure Source Blood Pressure Source [Right Arm] Blood Pressure Position Blood Pressure Position [Right Arm] 02 Sat by Pulse Oximetry 97 98 98 Oxygen Delivery Method 04/05/25 15:31 04/05/25 16:01 04/05/25 16:33 Temperature 98.4 F Temperature Source Pulse Rate 69 69 75 Pulse Rate [Right] Respiratory Rate 16 Blood Pressure 106/84 L 107/72 L 127/87 Blood Pressure [Right Arm] Blood Pressure Mean Blood Pressure Mean [Right Arm] Blood Pressure Source Blood Pressure Source [Right Arm] Blood Pressure Position Blood Pressure Position [Right Arm] 02 Sat by Pulse Oximetry 98 98 Oxygen Delivery Method Lab Data Labs: Lab Results 04/05/25 13:02: HCV Ab IVÁN w/Rflx PCR Qn Reactive, HIV Ag/Ab Combo Qual Negative 04/05/25 13:05: WBC 28.9 H*, RBC 5.89, Hgb 18.1 H, Hct 51.7, MCV 87.8, MCH 30.7, MCHC 35.0, RDW 13.3, Plt Count 356, MPV 10.2, Neut % (Auto) 76.3, Lymph % (Auto) 14.1, [place] % (Auto) 4.9, Eos % (Auto) 2.9, Baso % (Auto) 0.7, Neut # (Auto) 22.1 H, Lymph # (Auto) 4.1, [place] # (Auto) 1.4 H, Eos # (Auto) 0.8 H, Baso # (Auto) 0.2, Total Counted 100, Neutrophils % (Manual) 72, Lymphocytes % (Manual) 24, Monocytes % (Manual) 1 L, Eosinophils % (Manual) 3, Platelet Estimate Normal, RBC Morphology Normal, D-Dimer 0.47, Sodium 135 L, Potassium 4.6, Chloride 95 L, Carbon Dioxide 26, Anion Gap 18.6 H, BUN 20, Creatinine 1.80 H, Estimated Creat Clear 67, Estimated GFR 40 L, Est GFR ( Amer) 48 L, Glucose 208 H, Calcium 11.2 H, Magnesium 2.4 H, Total Bilirubin 0.6, AST 32, ALT 30, Alkaline Phosphatase 85, Troponin I < 0.01, Total Protein 9.7 H D, Albumin 5.2 H, Globulin 4.5 H, Albumin/Globulin Ratio 1.2, Lipase 64 04/05/25 13:18: SARS-CoV-2 (PCR) Not detected, Influenza A Untype (PCR) Not detected, Influenza Type B (PCR) Not detected 04/05/25 13:58: Lactate 1.9 04/05/25 14:30: Urine Color Yellow, Urine Appearance Clear, Urine pH 5.5, Ur Specific [place] >= 1.030, Urine Protein 1+ A, Urine Glucose (UA) 1+, Urine Ketones Trace, Urine Blood Negative, Urine Nitrate Negative, Urine Bilirubin Negative, Urine Urobilinogen 0.2, Ur Leukocyte Esterase Negative, Urine RBC None, Urine WBC 5-10, Ur Squamous Epith Cells Occasional, Urine Bacteria Trace, Urine Mucus Trace 04/05/25 13:05 04/05/25 13:05 Response Orders (Tests/Meds): ED MEDICATIONS Discontinued Medications Generic Name Dose Route Start Last Admin Trade Name Yaredq PRN Reason Stop Dose Admin Sodium Chloride 1,000 mls @ 999 mls/hr 04/05/25 13:07 04/05/25 13:21 Sod Chlor 0.9% 1000ml Bag IV 04/05/25 14:07 999 mls/hr .Q1H1M ONE Administration Sodium Chloride 2,260 mls @ 1,130 mls/hr 04/05/25 13:33 04/05/25 13:55 Sod Chlor 0.9% 1000ml Bag 30 ml/kg infuse over 2 hr (2260 ml) 04/05/25 15:32 1,130 mls/hr IV Administration .Q2H ONE Ceftriaxone Sodium 2 gm/ 100 mls @ 200 mls/hr 04/05/25 15:30 04/05/25 15:49 Sodium Chloride IV 04/15/25 15:29 200 mls/hr Q24H JENNI Administration Iopamidol 75 ml 04/05/25 14:20 04/05/25 14:21 Iopamidol-370 (76%);100ml Bottle IV 04/05/25 14:21 75 ml ONCE ONE Administration Ondansetron HCl 4 mg 04/05/25 13:07 04/05/25 13:21 Ondansetron 4mg/2ml Vial IV 04/05/25 13:08 4 mg ONCE ONE Administration Sodium Chloride 50 ml 04/05/25 14:20 04/05/25 14:21 0.9 % Sodium Chloride 50 Ml Vial IV 04/05/25 14:21 50 ml ONCE ONE Administration Sodium Chloride 10 ml 04/05/25 14:20 04/05/25 14:22 Sodium Chloride 0.9% 10ml Syr (Rad Only) IV 05/05/25 14:19 10 ml NEEDED PRN Administration Maintain IV Site ORDERS Category Date Time Status CT head/brain wo con Stat Cat Scan 04/05/25 13:06 Completed CTA Chest [CT angio chest PE protocol] Stat Cat Scan 04/05/25 13:24 Completed Chest XR -- portable [XR chest portable] Stat Exams 04/05/25 13:07 Completed CBC [Complete Blood Count Auto Diff] Stat Lab 04/05/25 13:05 Completed Comprehensive Metabolic Panel Stat Lab 04/05/25 13:05 Completed D-Dimer Stat Lab 04/05/25 13:05 Completed HCV RNA PCR, Quant Stat Lab 04/05/25 13:02 Received HIV Combo Stat Lab 04/05/25 13:02 Completed Hepatitis C Ab Qual. W/ RFX Stat Lab 04/05/25 13:02 Completed Lactic Acid Stat Lab 04/05/25 13:58 Completed Lipase Stat Lab 04/05/25 13:05 Completed Magnesium Stat Lab 04/05/25 13:05 Completed Rapid PCR Covid and Flu A/B Stat Lab 04/05/25 13:18 Completed Trop I [Troponin I] Stat Lab 04/05/25 13:05 Completed Urinalysis and Microscopic Stat Lab 04/05/25 14:30 Completed Blood Culture Stat Micro 04/05/25 14:12 Received MDM Narrative Medical Decision Narrative: patient is a 49-year-old male presenting to the emergency department for evaluation of weakness, shortness of air body aches, dizziness and a near syncopal episode prior to arrival. He says that over the last 2 weeks he has been having some difficulty when he gets up and exerts himself. Says that this has been going on for 2 weeks but what happened today was much different than what has been going on over the past 2 weeks. He said yesterday he had nausea, diarrhea and sore throat with mild cough. He does have COPD. He states that he has not had diarrhea since yesterday morning. Patient is hemodynamically stable and nontoxic-appearing upon arrival, afebrile. Differential diagnosis includes syncope, CAD, COPD exacerbation, ACS heat exhaustion, among others. Workup will be conducted with hematologic labs, specific imaging including CTA and CT of head. Initial inventions include crystalloid bolus, analgesics, antibiotics. Initial workup reviewed by me hematologic labs are remarkable for white count elevated at 28.9, lactate was 1.9, BUN was 20 creatinine was 1.8 with a GFR of 40. Imaging informally interpreted by me and remarkable for nothing acute. Please see radiology report for formal details. I have discussed this case with Dr. Hurtado and we discussed admitting patient for his leukocytosis and symptoms. I discussed this with patient and his family however patient specifically told me that he would not come into the hospital unless he was . Discussed with patient that with this elevated white count this could be something serious that needs to be inpatient and that his symptoms of the shortness of breath will also need workup. He and I discussed this and he says that that the exertional shortness of breath has been going on for weeks and he is happy to follow-up outpatient with cardiology and his PCP. He and I discussed return precautions. I spoke with his daughter as well about returning with any problems or concerns. They both assured me that they will come back with any problems or concerns. They will follow-up with PCP about blood cultures, white count and exertional shortness of breath. Patient does assure me that he feels much improved after the IV fluids. Upon repeat evaluation patient appears improved and family feels comfortable taking him home. Patient is stable for discharge. <Leon Hurtado MD - Last Filed: 04/06/25 07:19> Vital Signs Vital Signs: 04/05/25 13:00 04/05/25 13:05 04/05/25 13:13 Temperature 98.4 F 98.4 F Temperature Source Oral Oral Pulse Rate 110 H 112 H Pulse Rate [Right] 112 H Respiratory Rate 20 22 22 Blood Pressure 121/86 121/86 Blood Pressure [Right Arm] 121/86 Blood Pressure Mean 94 Blood Pressure Mean [Right Arm] 97 Blood Pressure Source Automatic Cuff Blood Pressure Source [Right Arm] Automatic Cuff Blood Pressure Position Supine Blood Pressure Position [Right Arm] Supine 02 Sat by Pulse Oximetry 99 97 97 Oxygen Delivery Method Room Air Room Air 04/05/25 13:31 04/05/25 14:00 04/05/25 15:12 Temperature Temperature Source Pulse Rate 85 83 80 Pulse Rate [Right] Respiratory Rate 18 18 Blood Pressure 117/83 117/87 120/83 Blood Pressure [Right Arm] Blood Pressure Mean 92 95 Blood Pressure Mean [Right Arm] Blood Pressure Source Blood Pressure Source [Right Arm] Blood Pressure Position Blood Pressure Position [Right Arm] 02 Sat by Pulse Oximetry 97 98 98 Oxygen Delivery Method 04/05/25 15:31 04/05/25 16:01 04/05/25 16:33 Temperature 98.4 F Temperature Source Pulse Rate 69 69 75 Pulse Rate [Right] Respiratory Rate 16 Blood Pressure 106/84 L 107/72 L 127/87 Blood Pressure [Right Arm] Blood Pressure Mean Blood Pressure Mean [Right Arm] Blood Pressure Source Blood Pressure Source [Right Arm] Blood Pressure Position Blood Pressure Position [Right Arm] 02 Sat by Pulse Oximetry 98 98 Oxygen Delivery Method Lab Data Labs: Lab Results 04/05/25 13:02: HCV Ab IVÁN w/Rflx PCR Qn Reactive, HIV Ag/Ab Combo Qual Negative 04/05/25 13:05: WBC 28.9 H*, RBC 5.89, Hgb 18.1 H, Hct 51.7, MCV 87.8, MCH 30.7, MCHC 35.0, RDW 13.3, Plt Count 356, MPV 10.2, Neut % (Auto) 76.3, Lymph % (Auto) 14.1, [place] % (Auto) 4.9, Eos % (Auto) 2.9, Baso % (Auto) 0.7, Neut # (Auto) 22.1 H, Lymph # (Auto) 4.1, [place] # (Auto) 1.4 H, Eos # (Auto) 0.8 H, Baso # (Auto) 0.2, Total Counted 100, Neutrophils % (Manual) 72, Lymphocytes % (Manual) 24, Monocytes % (Manual) 1 L, Eosinophils % (Manual) 3, Platelet Estimate Normal, RBC Morphology Normal, D-Dimer 0.47, Sodium 135 L, Potassium 4.6, Chloride 95 L, Carbon Dioxide 26, Anion Gap 18.6 H, BUN 20, Creatinine 1.80 H, Estimated Creat Clear 67, Estimated GFR 40 L, Est GFR ( Amer) 48 L, Glucose 208 H, Calcium 11.2 H, Magnesium 2.4 H, Total Bilirubin 0.6, AST 32, ALT 30, Alkaline Phosphatase 85, Troponin I < 0.01, Total Protein 9.7 H D, Albumin 5.2 H, Globulin 4.5 H, Albumin/Globulin Ratio 1.2, Lipase 64 04/05/25 13:18: SARS-CoV-2 (PCR) Not detected, Influenza A Untype (PCR) Not detected, Influenza Type B (PCR) Not detected 04/05/25 13:58: Lactate 1.9 04/05/25 14:30: Urine Color Yellow, Urine Appearance Clear, Urine pH 5.5, Ur Specific [place] >= 1.030, Urine Protein 1+ A, Urine Glucose (UA) 1+, Urine Ketones Trace, Urine Blood Negative, Urine Nitrate Negative, Urine Bilirubin Negative, Urine Urobilinogen 0.2, Ur Leukocyte Esterase Negative, Urine RBC None, Urine WBC 5-10, Ur Squamous Epith Cells Occasional, Urine Bacteria Trace, Urine Mucus Trace Response Orders (Tests/Meds): ED MEDICATIONS Discontinued Medications Generic Name Dose Route Start Last Admin Trade Name Freq PRN Reason Stop Dose Admin Sodium Chloride 1,000 mls @ 999 mls/hr 04/05/25 13:07 04/05/25 13:21 Sod Chlor 0.9% 1000ml Bag IV 04/05/25 14:07 999 mls/hr .Q1H1M ONE Administration Sodium Chloride 2,260 mls @ 1,130 mls/hr 04/05/25 13:33 04/05/25 13:55 Sod Chlor 0.9% 1000ml Bag 30 ml/kg infuse over 2 hr (2260 ml) 04/05/25 15:32 1,130 mls/hr IV Administration .Q2H ONE Ceftriaxone Sodium 2 gm/ 100 mls @ 200 mls/hr 04/05/25 15:30 04/05/25 15:49 Sodium Chloride IV 04/15/25 15:29 200 mls/hr Q24H JENNI Administration Iopamidol 75 ml 04/05/25 14:20 04/05/25 14:21 Iopamidol-370 (76%);100ml Bottle IV 04/05/25 14:21 75 ml ONCE ONE Administration Ondansetron HCl 4 mg 04/05/25 13:07 04/05/25 13:21 Ondansetron 4mg/2ml Vial IV 04/05/25 13:08 4 mg ONCE ONE Administration Sodium Chloride 50 ml 04/05/25 14:20 04/05/25 14:21 0.9 % Sodium Chloride 50 Ml Vial IV 04/05/25 14:21 50 ml ONCE ONE Administration Sodium Chloride 10 ml 04/05/25 14:20 04/05/25 14:22 Sodium Chloride 0.9% 10ml Syr (Rad Only) IV 05/05/25 14:19 10 ml NEEDED PRN Administration Maintain IV Site ORDERS Category Date Time Status CT head/brain wo con Stat Cat Scan 04/05/25 13:06 Completed CTA Chest [CT angio chest PE protocol] Stat Cat Scan 04/05/25 13:24 Completed Chest XR -- portable [XR chest portable] Stat Exams 04/05/25 13:07 Completed CBC [Complete Blood Count Auto Diff] Stat Lab 04/05/25 13:05 Completed Comprehensive Metabolic Panel Stat Lab 04/05/25 13:05 Completed D-Dimer Stat Lab 04/05/25 13:05 Completed HCV RNA PCR, Quant Stat Lab 04/05/25 13:02 Received HIV Combo Stat Lab 04/05/25 13:02 Completed Hepatitis C Ab Qual. W/ RFX Stat Lab 04/05/25 13:02 Completed Lactic Acid Stat Lab 04/05/25 13:58 Completed Lipase Stat Lab 04/05/25 13:05 Completed Magnesium Stat Lab 04/05/25 13:05 Completed Rapid PCR Covid and Flu A/B Stat Lab 04/05/25 13:18 Completed Trop I [Troponin I] Stat Lab 04/05/25 13:05 Completed Urinalysis and Microscopic Stat Lab 04/05/25 14:30 Completed Blood Culture Stat Micro 04/05/25 14:12 Received ECG Data Tracing #1: Attestation: I reviewed this ECG and interpreted as documented below: (Mcgregor rhythm 91 bpm with NV 136, QRS 89, QTc 376. Normal axis no acute ischemic changes) MDM Narrative Medical Decision Narrative: patient is a 49-year-old male presenting to the emergency department for evaluation of weakness, shortness of air body aches, dizziness and a near syncopal episode prior to arrival. He says that over the last 2 weeks he has been having some difficulty when he gets up and exerts himself. Says that this has been going on for 2 weeks but what happened today was much different than what has been going on over the past 2 weeks. He said yesterday he had nausea, diarrhea and sore throat with mild cough. He does have COPD. He states that he has not had diarrhea since yesterday morning. Patient is hemodynamically stable and nontoxic-appearing upon arrival, afebrile. Differential diagnosis includes syncope, CAD, COPD exacerbation, ACS heat exhaustion, among others. Workup will be conducted with hematologic labs, specific imaging including CTA and CT of head. Initial inventions include crystalloid bolus, analgesics, antibiotics. Initial workup reviewed by me hematologic labs are remarkable for white count elevated at 28.9, lactate was 1.9, BUN was 20 creatinine was 1.8 with a GFR of 40. Imaging informally interpreted by me and remarkable for nothing acute. Please see radiology report for formal details. I have discussed this case with Dr. Hurtado and we discussed admitting patient for his leukocytosis and symptoms. I discussed this with patient and his family however patient specifically told me that he would not come into the hospital unless he was . Discussed with patient that with this elevated white count this could be something serious that needs to be inpatient and that his symptoms of the shortness of breath will also need workup. He and I discussed this and he says that that the exertional shortness of breath has been going on for weeks and he is happy to follow-up outpatient with cardiology and his PCP. He and I discussed return precautions. I spoke with his daughter as well about returning with any problems or concerns. They both assured me that they will come back with any problems or concerns. They will follow-up with PCP about blood cultures, white count and exertional shortness of breath. Patient does assure me that he feels much improved after the IV fluids. Upon repeat evaluation patient appears improved and family feels comfortable taking him home. Patient is stable for discharge. I was consulted by the SHALONDA, and we discussed the complexity of the problems being addressed. I approved the treatment and management plan for this patient's care in the Emergency Department, thus performing a substantive portion of the medical decision making. Leon Hurtado MD
--- NOTE | 2025-04-05 13:13 | ECG_ITS ---
APPROVED REPORT Exam: Resting ECG HR:91 bpm ECG Measurements Heart Rate 91 AXES NM 136 P 73 QRSd 89 QRS 37 QT 327 T 37 QTc 376 Conclusion SINUS RHYTHM POSSIBLE RIGHT ATRIAL ENLARGEMENT [0.25mV P-WAVE] BORDERLINE ECG UNCONFIRMED REPORT Electronically signed by : RUFINA DWYER, 04/06/2025 06:14:51
[2025-04-05 13:14] LABS: Basophils # 0.2 K/mm3 (0-0.2); Basophils % 0.7 % (0.1-2.0); Eosinophils # 0.8 Kmm3 (0.0-0.4); Eosinophils % 2.9 % (0.1-12.0); Hematocrit 51.7 % (42.0-52.0); Immature Granulocytes # 0.32 10^3uL; Immature Granulocytes % 1.1 %; Lymphocytes # 4.1 K/mm3 (0.7-4.5); Lymphocytes % 14.1 % (10-50); Mean Corpuscular Hemoglobin 30.7 pg (27.0-31.2); Mean Corpuscular Volume 87.8 fl (80-94); Mean Platelet Volume 10.2 fl (7.4-10.4); Monocytes # 1.4 K/mm3 (0.1-1.0); Monocytes % 4.9 % (1.7-9.3); Neutrophils # 22.1 K/mm3 (1.8-7.8); Neutrophils % 76.3 % (37.0-80.0); Nucleated Red Blood Cells # 0 10^3/uL; Nucleated Red Blood Cells % 0 %; Platelet Count 356 K/mm3 (142-424); Red Blood Count 5.89 M/mm3 (4.60-6.20); Red Cell Distribution Width 13.3 % (11.5-17.5); Red Cell Distribution Width-SD 42.9 fL; White Blood Count 28.9 K/mm3 (4.8-10.8)
[2025-04-05 13:18] LABS: MANUAL DIFFERENTIAL MANUAL DIFFERENTIAL (MANUAL DIFF)
[2025-04-05 13:19] LABS: Alanine Aminotransferase 30 U/L (12-78); Albumin Level 5.2 g/dl (3.5-5.0); Albumin/Globulin Ratio 1.2 (1.1-1.8); Alkaline Phosphatase 85 U/L (38-126); Anion Gap 18.6 mEq/L (5-15); Aspartate Amino Transferase 32 U/L (17-59); Bilirubin,Total 0.6 mg/dl (0.2-1.3); Blood Urea Nitrogen 20 mg/dl (9-20); Calcium 11.2 mg/dl (8.4-10.2); Carbon Dioxide 26 mmol/L (22.0-30.0); Chloride 95 mmol/L (98-107); Creatinine Clearance Estimated 67 mL/min (50-200); Estimated Glomerular Filt Rate 40 ml/min (>60); GFR (African American) 48 ML/MIN (>60); Globulin 4.5 g/dL (1.3-3.2); Glucose 208 mg/dl (74-100); Lipase 64 U/L (23-300); Magnesium 2.4 mg/dl (1.6-2.3); Potassium 4.6 mmoL/L (3.5-5.1); Sodium 135 mmol/L (136-145); Total Protein,Serum 9.7 g/dl (6.3-8.2)
[2025-04-05] MEDS: 0.9 % SODIUM CHLORIDE 1000ML 1,000 ML 999 ML IV (13:21)
[2025-04-05] MEDS: ONDANSETRON 4MG/2ML VIAL 4 MG IV (13:21)
[2025-04-05 13:22] LABS: Coronavirus 19, PCR Not Detected (NotDetected); Influenza A, PCR Not Detected (NotDetected); Influenza B, PCR Not Detected (NotDetected)
[2025-04-05 13:23] LABS: D-Dimer 0.47 ug/mL (0.0-0.5)
[2025-04-05 13:24] LABS: Hemoglobin 18.1 g/dL (14.1-18.0)
--- NOTE | 2025-04-05 13:24 | CT_ITS ---
FINAL REPORT TECHNIQUE: Postcontrast axial images of the chest were performed in a CTA protocol. This study was performed with techniques to keep radiation doses as low as reasonably achievable, (ALARA). Individualized dose reduction technique using automated exposure control or adjustment of mA and/or kV according to the patient's size were employed. CLINICAL HISTORY: short of breath FINDINGS: The heart is normal in size. There is right hilar adenopathy measuring 17 mm. No pleural or pericardial effusion is identified. The thoracic aorta is normal in caliber with no focal aneurysm or dissection identified. There is no filling defect to suggest pulmonary embolism. No lung infiltrate or mass is identified. The images of the upper abdomen are unremarkable. IMPRESSION: No evidence for PE on this exam. Incidental right hilar adenopathy. Recommend CT follow-up in 3 months. Reviewed, Interpreted and Dictated by Mayra Yates MD Transcribed by Stacey Gomez Authenticated and [facility]
[2025-04-05 13:46] LABS: Troponin I < 0.01 ng/ml (0.00-0.034)
[2025-04-05] MEDS: 0.9 % SODIUM CHLORIDE 1000ML 2,260 ML 1130 ML IV (13:55)
[2025-04-05 14:15] LABS: Lactic Acid 1.9 mmol/L (0.7-2.1)
[2025-04-05] MEDS: 0.9 % SODIUM CHLORIDE 50 ML VIAL IV (14:21)
[2025-04-05] MEDS: IOPAMIDOL-370 (76%);100ML BOTTLE 75 ML IV (14:21)
[2025-04-05] MEDS: SODIUM CHLORIDE 0.9% 10ML SYR (RAD ONLY) 10 ML IV (14:22)
[2025-04-05 14:35] LABS: Microscopic, Urine URINE MICROSCOPIC (MICROSCOPIC)
[2025-04-05 14:44] LABS: Appearance,Urine CLEAR (Clear); Blood, Urine Negative (Negative); Color,Urine YELLOW (Yellow); Glucose,Urine (UA) 1+ (Negative); Ketones,Urine TRACE (Negative); Leukocyte Esterase,Urine Negative (Negative); Nitrate,Urine Negative (Negative); PH,Urine 5.5 (5.0-8.5); Protein,Urine 1+ (Negative); Specific Gravity, Urine >= 1.030 (1.005-1.030); Urobilinogen,Urine 0.2 EU/dl (0.2)
[2025-04-05 14:52] LABS: HIV Combo NEGATIVE (Negative)
[2025-04-05 14:59] LABS: Hepatitis C Ab Qual. W/ RFX REACTIVE (Negative)
[2025-04-05 15:01] LABS: Bilirubin,Urine Negative (Negative)
--- NOTE | 2025-04-05 15:04 | PC.NURSE ---
pt left room and was walking towards to exit. He stated that he needed to go smoke. I explained that we are a nonsmoking facility and I would have to elope him if he were to leave the ER. He returned to his room. I offered a nicotine patch, he declined at this time.
[2025-04-05 15:12] LABS: Bacteria,Urine Trace /lpf; Mucus,Urine Trace /lpf; Squamous Epithelial Cell,Urine Occasional #/hpf (0-5)
--- NOTE | 2025-04-05 15:22 | PC.NURSE ---
I called and spoke with Ebony in radiology inquiring about the scan reads. She states the radiologist is reading them currently.
[2025-04-05 15:46] LABS: Eosinophils % 3 % (0-3); Lymphocytes % 24 % (10-50); Monocytes % 1 % (2-9); Neutrophils % 72 % (42-76); Total Cells Counted 100
[2025-04-05 15:47] LABS: Platelet Estimate Normal
[2025-04-05 15:48] LABS: RBC Morphology Normal
--- NOTE | 2025-04-05 15:48 | PC.NURSE ---
Nola TURNER spoke with the pt. He refused admission.
[2025-04-05] MEDS: CEFTRIAXONE SODIUM 2 GM in 0.9 % SODIUM CHLORIDE 100 ML IV (15:49)
== END 2025-04-05 16:41 | disposition left against medical advice (07) ==
PROVIDERS: Nurse Practitioner; Emergency Provider Emergency Medicine; PCP Nurse Practitioner Family
DX: R06.02 Shortness of breath (principal); R55 Syncope and collapse; D72.829 Elevated white blood cell count, unspecified; F17.210 Nicotine dependence, cigarettes, uncomplicated; J44.9 Chronic obstructive pulmonary disease, unspecified
CPT/HCPCS: 36415; 70450; 71045; 71275; 80053; 81001; 83605; 83690; 83735; 84484; 85007; 85025; 85027; 85378; 86803; 87040; 87389; 87522; 87636; 93005; 96361; 96365; 96375; 99285; J0696; J2405; J7030; Q9967

== ENCOUNTER 2025-04-12 10:44 | Outpatient (POV) | payer OTHER, SELFPAY ==
--- OUTSIDE RECORDS SUMMARY | 2025-04-12 10:50 | XMS_ITS | Clinical Summary ---
Author Organization Healthcare Address [address] [place] [address] Care Team Providers Care Hand Umbrella Tipper Name Role Phone Kyle Moreno MD Primary Care Provider + [phone] Immunizations Immunization Administration Dates Next Due Hep [...] of Treatment Not on file Care Teams Hand Umbrella Tipper Relationship Specialty Start Date End Date Kyle Moreno MD [address] [place] [address] PCP - General 02/22/21
--- OUTSIDE RECORDS SUMMARY | 2025-04-12 10:50 | XMS_ITS | Clinical Summary ---
Author Organization [facility] Address [facility] [address] [facility] [place] [address] Phone Care Team Providers Care Education Professional Name Role Phone Unavailable Primary Care Provider [...] original. Contracts- 01/23/16 Kita- 05/23/2016 Reference #: [id number] UDS- 05/23/2016 Suboxone 8/2 tabs approved 04/18/2016-07/19/2016 [...] for a week. Detox'ed off suboxone in residential. Has not been going to 12 steps. 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 Did go to [facility] and has follow up scheduled. Did not go to AA/NA. Reports that he used heroin once since last visit. Kita pagan. Counts unavailable. 02/13/16 Has not been to AA/NA. Will attempt this. Has appt with [facility] 02/19/16 Counts and kita pagan 02/06/16 [...] not available. 01/30/16 Sees Mar Barcenas at [phone] At [employer] For counseling Does go to AA/NA parole or probation officer Markel [phone] 01/23/16 HPI: Patient is interested in starting [...] has been to out patient treatment in [place]. Patient is currently in counseling with them. Patient has been to AA in the past, he does not like AA due to being around people. Consequences of drug use: Patient has been to residential due to drug use. 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 [...] - 2023-2 5 season) 2024 Influenza Vaccine (#1) 2025 Meningococcal B Vaccine Aged Out No l onger eligible based on patient's age to complete this topic Goals Goal Patient Goal Type Associated Problems Recent Progress Patient-Stated? Author Maintain a healthy diet, exercise regularly and maintain an ideal body weight General No Alessia Valentine, JOSE ANTONIO Stay Tobacco Free Lifestyle No Alessia Valentine CCMA Insurance [facility] [place] [address] [place] [address]
--- OUTSIDE RECORDS SUMMARY | 2025-04-12 10:50 | XMS_ITS | Clinical Summary ---
Author Organization [facility] Address [address] [place] [address] Care Team Providers Care Chimney Mechanic Name Role Phone Unavailable Primary Care Provider [...] Not on file Insurance [address] [id number] [employer] [facility] Advance Directives * Full Code (Latest Code Status on File) Date Activated Date Inactivated Comments 11/29/2018 2:56 AM 12/01/2018 6:10 PM
--- NOTE | 2025-04-12 11:07 | EXP.PAIN.SOA ---
[facility] Disclaimer: The information contained in this section may have been updated after the patient was seen, as this information can be updated by other users. Medical History Outbursts of anger Pre-diabetes History of torsion of testis Vitamin D deficiency Surgical History History of laparoscopic cholecystectomy History of hernia repair Hx of esophagogastroduodenoscopy Family History Other No significant family history Social History Smoking Status: Current every day smoker tobacco type: cigarettes packs per day: 1 second hand exposure: No alcohol intake: current substance use type: former substance user, heroin, IV drugs and methamphetamine current occupational status: unemployed Travel in the last 8 weeks?: None household members: family housing: house lives independently: Yes marital status: single caffeine: Yes special barrie needs: No agree to transfusion: No do you feel safe at home: Yes victim of physical abuse: No victim of emotional abuse: No victim of sexual abuse: No would you like helpful sources: No PM Subjective & Objective Subjective Subjective:: Patient is a pleasant 49-year-old male who presents today for follow-up. Today he rates his pain a 6 out of 10. Patient states he still having the same pain he was previously all along his low back that does go into his right hip. Patient states this is all chronic issues however it just seems like its progressively worsening. He denied any side effects to the medication we sent in a diclofenac 75 mg twice a day. He states that he really did not notice much difference between its and the previous Celebrex. Patient has been given baclofen 10 mg from an outside provider and states that it did help but it just does not seem to help as much and that he is taking it about 4 times per day. His Wilfredo has been reviewed. Review of Systems: General: No recent weight changes, no fever, no sleep disturbances Respiratory: No cough, no shortness of air, no recurring pulmonary infections Cardiovascular/peripheral vascular: No chest pain, no palpitations, no edema, no shortness of breath Gastrointestinal: No new onset incontinence, normal bowel movements reported Genitourinary: No new onset incontinence Musculoskeletal: Low back pain, right hip pain Psychiatric: [Normal mood/affect] Neurological: [Denies weakness in extremities], [denies balance issues] Pain at rest (0-10 scale): 6 Objective Objective:: Physical Exam: General: Alert and oriented x3, no acute distress, pleasant and cooperative Lungs: Respirations even and unlabored, symmetrical chest expansion Eyes: PERRL Musculoskeletal: Flexion and extension of lumbar [spine] somewhat guarded secondary to pain, [antalgic gait noted] Neurological: Speech clear, no gross sensory deficit Has patient had previous pain injection?: No Conservative treatment options previously tried: Home exercise plan Length of treatment: Longer than 6 weeks Meds Home Medications and Allergies Home Medications ?Medication ?Instructions ?Recorded ?Confirmed ?Type albuterol sulfate 90 mcg/actuation 2 puff inhalation Q8H PRN 01/20/25 04/12/25 Rx aerosol inhaler shortness of breath or wheezing #8.5 grams fluconazole 150 mg tablet 150 mg PO WEEKLY 4 weeks #4 tabs 01/20/25 04/12/25 Rx terbinafine HCl 1 % topical cream 1 applic topical BID 6 weeks #30 01/20/25 04/12/25 Rx grams celecoxib 50 mg capsule 50 mg PO BID #60 caps 01/25/25 04/12/25 Rx clonidine HCl 0.2 mg tablet 0.2 mg PO TID #90 tabs 03/08/25 04/12/25 Rx lamotrigine 100 mg tablet 100 mg PO DAILY #30 tabs 03/08/25 04/12/25 Rx (Lamictal) ziprasidone HCl 40 mg capsule 40 mg PO BID #60 caps 03/08/25 04/12/25 Rx (Geodon) montelukast 10 mg tablet See Rx Instructions .Route 03/17/25 04/12/25 Rx .COMPLEX #90 tabs diclofenac sodium 75 mg 75 mg PO BID #28 tabs 03/30/25 04/12/25 Rx tablet,delayed release baclofen 10 mg tablet See Rx Instructions .Route 04/03/25 04/12/25 Rx .COMPLEX #90 tabs guanfacine 2 mg tablet,extended mg PO 04/12/25 04/12/25 History release 24 hr New Prescriptions to Start Prescriptions: Allergies Allergy/AdvReac Type Severity Reaction Status Date / Time No Known Allergies Allergy Verified 04/12/25 09:04 Assessment and Plan *Assessment and plan (1) Low Back Pain: Status: Acute Category: Medical Code(s): M54.50 - Low back pain, unspecified (2) Sacroiliitis: Status: Acute Category: Medical Code(s): M46.1 - Sacroiliitis, not elsewhere classified (3) Greater trochanteric bursitis: Status: Acute Category: Medical Code(s): M70.60 - Trochanteric bursitis, unspecified hip Plan I did still discuss with the patient that there is still the possibility if he would like to try additional injections however he states that he has been through all that in the past and it just was not worth that. I will send in a 1 month supply of methocarbamol 750 mg 4 times daily. Patient was counseled to discontinue the baclofen while he does try this medication. Patient will return to clinic in 1 month for reevaluation of symptoms and plan of care. Patient has been instructed to contact the clinic with any concerns before the next appointment. Dr. Gallo has reviewed this note and agrees with this plan of care. This note was dictated using voice recognition software and make contain errors or omissions. All injections are used with Lidocaine, Bupivacaine and dexamethasone. Occasionally urine drug screen is needed to verify patient's compliance with our office pain contract. This is ordered based off specific treatments related to chronic pain with the potential to abuse certain medications.
[2025-04-12 11:30] LABS: Hematocrit 48.0 % (42.0-52.0); Hemoglobin 16.9 g/dL (14.1-18.0); Immature Granulocytes % 1.0 %; Mean Corpuscular HGB Conc 35.2 g/dL (31.8-35.4); Mean Corpuscular Hemoglobin 30.7 pg (27.0-31.2); Mean Corpuscular Volume 87.3 fl (80-94); Nucleated Red Blood Cells % 0 %; Platelet Count 333 K/mm3 (142-424); Red Blood Count 5.50 M/mm3 (4.60-6.20); Red Cell Distribution Width-SD 39.9 fL; White Blood Count 18.4 K/mm3 (4.8-10.8)
[2025-04-12 12:02] LABS: Anion Gap 14.6 mEq/L (5-15); Blood Urea Nitrogen 12 mg/dl (9-20); Calcium 9.9 mg/dl (8.4-10.2); Carbon Dioxide 26 mmol/L (22.0-30.0); Chloride 100 mmol/L (98-107); Creatinine,Serum 1.10 mg/dl (0.66-1.25); Estimated Glomerular Filt Rate 71 ml/min (>60); GFR (African American) 85 ML/MIN (>60); Glucose 115 mg/dl (74-100); Potassium 4.6 mmoL/L (3.5-5.1); Sodium 136 mmol/L (136-145)
[2025-04-12 13:37] VITALS: BP 119/71; PULSE 85; RESP 14; O2SAT 98; BMI 29.0
== END 2025-04-12 23:59 | disposition home or self-care (01) ==
PROVIDERS: PCP Nurse Practitioner Family; Visit Provider Nurse Practitioner Family
DX: M46.1 Sacroiliitis, not elsewhere classified (principal); M70.61 Trochanteric bursitis, right hip; Z79.899 Other long term (current) drug therapy
CPT/HCPCS: 36415; 80048; 85025; 99212; G0463

== ENCOUNTER 2025-04-25 11:05 | Outpatient (CLI) | payer OTHER, SELFPAY ==
--- OUTSIDE RECORDS SUMMARY | 2025-04-25 11:12 | XMS_ITS | Clinical Summary ---
Author Organization [facility] Address [address] [place] [address] Care Team Providers Care Braid Maker Name Role Phone Unavailable Primary Care Provider [...] Not on file Insurance [address] [id number] [employer] [facility] Advance Directives * Full Code (Latest Code Status on File) Date Activated Date Inactivated Comments 11/29/2018 2:56 AM 12/01/2018 6:10 PM
--- OUTSIDE RECORDS SUMMARY | 2025-04-25 11:12 | XMS_ITS | Clinical Summary ---
Author Organization [facility] Address [facility] [place] [address] Phone Care Team Providers Care Facilities Director Name Role Phone Unavailable Primary Care Provider [...] original. Contracts- 01/23/16 Kita- 05/23/2016 Reference #: [id number] UDS- 05/23/2016 Suboxone 8/2 tabs approved 04/18/2016-07/19/2016 [...] for a week. Detox'ed off suboxone in [facility]. Has not been going to 12 steps. 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 Did go to [facility] and has follow up scheduled. Did not go to AA/NA. Reports that he used heroin once since last visit. Kita pagan. Counts unavailable. 02/13/16 Has not been to AA/NA. Will attempt this. Has appt with [facility] 02/19/16 Counts and kita pagan 02/06/16 [...] Counts are not available. 01/30/16 Sees Mar Barecnas at [phone] At [employer] For counseling Does go to AA/NA dental officer Markel [phone] 01/23/16 HPI: Patient is interested in starting [...] has been to out patient treatment in [place]. Patient is currently in counseling with them. Patient has been to AA in the past, he does not like AA due to being around people. Consequences of drug use: Patient has been to [facility] due to drug use. 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 [...] Free Lifestyle No Alessia Valentine CCMA Insurance [facility] [place] [address] [place] [address]
--- OUTSIDE RECORDS SUMMARY | 2025-04-25 11:12 | XMS_ITS | Clinical Summary ---
Author Organization Healthcare Address [address] [place] [address] Care Team Providers Care Embedded Developer Name Role Phone Kyle Moreno MD Primary Care Provider + [phone] Immunizations Immunization Administration Dates Next Due Hep [...] of Treatment Not on file Care Teams Embedded Developer Relationship Specialty Start Date End Date Kyle Moreno MD [address] [place] [address] PCP - General 02/22/21
[2025-04-25 12:19] LABS: Alanine Aminotransferase 20 U/L (12-78); Albumin Level 4.2 g/dl (3.5-5.0); Alkaline Phosphatase 70 U/L (38-126); Aspartate Amino Transferase 22 U/L (17-59); Bilirubin,Direct 0.4 mg/dl (0.0-0.4); Bilirubin,Indirect 0.0 mg/dL (0.0-0.9); Bilirubin,Total 0.4 mg/dl (0.2-1.3); Bilirubin,Unconjugated 0.1 mg/dL (0.0-1.1); Cholesterol 217 mg/dl (140-200); HDL Cholesterol 35 mg/dl (40-60); Total Protein,Serum 6.9 g/dl (6.3-8.2); Triglycerides 212 mg/dl (30-150)
[2025-04-25 12:36] LABS: T4 (Thyroxine) 8.3 ug/dl (5.53-11.0)
[2025-04-25 12:37] LABS: Free Thyroxine Index 3.6 ug/dL (5.93-13.13); Triiodothryronine (T3) Uptake 43 % (23.5-40.5)
[2025-04-25 12:52] LABS: Thyroid Stimulating Hormone 1.08 uIU/mL (0.465-4.68)
== END 2025-04-25 23:59 | disposition home or self-care (01) ==
LOC: LAB 11:07
PROVIDERS: PCP Nurse Practitioner Family; Visit Provider Nurse Practitioner
DX: R55 Syncope and collapse (principal); R94.31 Abnormal electrocardiogram [ECG] [EKG]; R42 Dizziness and giddiness; R00.2 Palpitations; R06.09 Other forms of dyspnea
CPT/HCPCS: 36415; 80061; 80076; 84436; 84443; 84479; 93270

== ENCOUNTER 2025-05-03 11:21 | Outpatient (CLI) | payer OTHER, SELFPAY ==
[2025-05-03 15:26] LABS: Hematocrit 48.6 % (42.0-52.0); Hemoglobin 16.5 g/dL (14.1-18.0); Immature Granulocytes % 1.3 %; Mean Corpuscular HGB Conc 34.0 g/dL (31.8-35.4); Mean Corpuscular Hemoglobin 30.3 pg (27.0-31.2); Mean Corpuscular Volume 89.2 fl (80-94); Nucleated Red Blood Cells % 0 %; Platelet Count 370 K/mm3 (142-424); Red Blood Count 5.45 M/mm3 (4.60-6.20); Red Cell Distribution Width-SD 42.0 fL; White Blood Count 16.6 K/mm3 (4.8-10.8)
--- OUTSIDE RECORDS SUMMARY | 2025-05-04 14:52 | XMS_ITS | Data Portability ---
Author Organization [place] - [facility] [place] [facility] ADMIN Address [address] [place] [id number] Care Team Providers Care Servicenow Administrator Developer Name Role Phone ARTUR GARCIA Primary Care Provider Assessment Encounter Date Assessment Date Assessment LastModified by Organization Details LastModified Time 12/17/2022 12/17/2022 47-year-old male with: 1. Chronic hepatitis-C: Patient completed treatment with Mavyret x8 weeks on October 06, 2022. HCV PCR quant at that time was negative. Patient was provided with a lab order for repeat labs to be done at [facility] on January 04 2023 to ensure [...] and treatment for H pylori per above. [email or web address] Not available 12/17/2022 15:13:02 Plan of Treatment Reminders Order Date Submit Date Provider Last Modified By Organization Details Last Modified Time Details Appointments None recorded. Lab CMP, serum or plasma 2022 023 [email or web address] 361 [facility] (Lab), [address], [place], [address], 13:29:24 CBC 2022 023 [email or web address] 361 [facility] (Lab), [address], [place], [address], 3 13:29:24 hepatitis C RNA, quant, PCR, serum 2022 023 [facility] (Lab), [address], [place], [address], 3 14:06:11 CMP, serum or plasma 2021 022 [facility] (Registration ), [address], [place], [address], 2 14:16:52 CBC 2021 [facility] ([facility] ), [address], [place], [address], 2 15:14:05 hepatitis C virus RNA, viral load, PCR, serum or plasma 2021 022 [facility] (Registration ), [address], [place], [address], 2 23:51:35 PT/INR [address] (Registration ), [address], [place], [address], 3 13:20:18 CMP, serum or plasma 2021 022 [facility] (Registration ), [address], [place], [address], 2 11:23:40 CBC 2021 022 [facility] (Registration ), [address], [place], [address], 2 12:12:42 hepatitis C virus RNA, viral load, PCR, serum or plasma 2021 022 MEL [facility] (Registration ), [address], [place], [address], 03:50:32 PT/INR [email or web address] (Registration ), [address], [place], [address], 15:22:18 Referral None recorded. Procedures None recorded. [...] 19.4 K/uL 4.0-10 .5 high Not Available [facility] ([facility]) [address], [place], [address], 09/09/2022 11:20:18 09/09/20 22 09/09/2022 CBC AUTO NO DIFF (HEMO GRAM) RBC 5.8 M/mm3 4.7-6. 1 Not Available [facility] ([facility]) [address], [place], [address], 09/09/2022 11:20:18 09/09/20 22 09/09/2022 CBC AUTO NO DIFF (HEMO GRAM) HGB 16.7 gm/dL 13.5-1 8.0 Not Available [facility] ([facility]) [address], [place], [address], 09/09/2022 11:20:18 09/09/20 22 09/09/2022 CBC AUTO NO DIFF (HEMO GRAM) HCT 50.5 % 42.0-5 2.0 Not Available [facility] ([facility]) [address], [place], [address], 09/09/2022 11:20:18 09/09/20 22 09/09/2022 CBC AUTO NO DIFF (HEMO GRAM) MCV 87.8 fL 78-100 Not Available [facility] ([facility]) [address], [place], [address], 09/09/2022 11:20:18 09/09/20 22 09/09/2022 CBC AUTO NO DIFF (HEMO GRAM) MCH 29.0 pg 27-31 Not Available [facility] ([facility]) [address], [place], [address], 09/09/2022 11:20:18 09/09/20 22 09/09/2022 CBC AUTO NO DIFF (HEMO GRAM) MCHC 33.1 g/dL 32-36 Not Available [facility] ([facility]) [address] [facility], [place], [address], 09/09/2022 11:20:18 09/09/20 22 09/09/2022 CBC AUTO NO DIFF (HEMO GRAM) RDW 13.4 % 11.5-1 4.0 Not Available [facility] ([facility]) [address] [facility], [place], [address], 09/09/2022 11:20:18 09/09/20 22 09/09/2022 CBC AUTO NO DIFF (HEMO GRAM) platelet count 307 K/uL 150-45 0 Not Available [facility] ([facility]) [address] [facility], [place], [address], 09/09/2022 11:20:18 09/09/20 22 09/09/2022 CBC AUTO NO DIFF (HEMO GRAM) manual differential NO Not Available [facility] ([facility]) [address], [place], [address], 09/09/2022 11:20:18 09/09/20 22 09/09/2022 COMP METAB OLIC PANEL sodium 137 mmol/ L 136-14 5 Not Available [facility] ([facility]) [address] , [place], [address], 09/09/2022 11:23:40 09/09/20 22 09/09/2022 COMP METAB OLIC PANEL potassium 3.9 mmol/ L 3.6-5. 0 Not Available [facility] ([facility]) [address] , [place], [address], 09/09/2022 11:23:40 09/09/20 22 09/09/2022 COMP METAB OLIC PANEL chloride 104 mmol/ L 98-107 Not Available [facility] ([facility]) [address] , [place], [address], 09/09/2022 11:23:40 09/09/20 22 09/09/2022 COMP METAB OLIC PANEL carbon dioxide 27.0 mmol/ L 21.0-3 2.0 Not Available [facility] ([facility]) [address] , [place], [address], 09/09/2022 11:23:40 09/09/20 22 09/09/2022 COMP METAB OLIC PANEL anion gap 9.9 Not Available [facility] ([facility]) [address] , [place], [address], 09/09/2022 11:23:40 09/09/20 22 09/09/2022 COMP METAB OLIC PANEL glucose 109 mg/dL 70-120 Not Available [facility] ([facility]) [address] , [place], [address], 09/09/2022 11:23:40 09/09/20 22 09/09/2022 COMP METAB OLIC PANEL BUN 8 mg/dL 7-18 Not Available [facility] ([facility]) [address] , [place], [address], 09/09/2022 11:23:40 09/09/20 22 09/09/2022 COMP METAB OLIC PANEL creatinine 1.0 mg/dL 0.6-1. 3 Not Available [facility] ([facility]) [address], [place], [address], 09/09/2022 11:23:40 09/09/20 22 09/09/2022 COMP METAB OLIC PANEL glomerular filtration rate >60 mlper min 60- Not Available [facility] ([facility]) [address], [place], [address], 09/09/2022 11:23:40 09/09/20 22 09/09/2022 COMP METAB OLIC PANEL total protein 7.8 g/dL 6.4-8. 2 Not Available [facility] ([facility]) [address] , [place], [address], 09/09/2022 11:23:40 09/09/20 22 09/09/2022 COMP METAB OLIC PANEL albumin 3.9 g/dL 3.4-5. 0 Not Available [facility] ([facility]) [address] , [place], [address], 09/09/2022 11:23:40 09/09/20 22 09/09/2022 COMP METAB OLIC PANEL globulin 3.9 Not Available [facility] ([facility]) [address] , [place], [address], 09/09/2022 11:23:40 09/09/20 22 09/09/2022 COMP METAB OLIC PANEL alb/glob ratio 1.0 0.7-2 Not Available [facility] ([facility]) [address], [place], [address], 09/09/2022 11:23:40 09/09/20 22 09/09/2022 COMP METAB OLIC PANEL calcium 9.2 mg/dL 8.5-10 .5 Not Available [facility] ([facility]) [address] , [place], [address], 09/09/2022 11:23:40 09/09/20 22 09/09/2022 COMP METAB OLIC PANEL bilirubin total 0.31 mg/dL 0.10-1 .00 Not Available [facility] ([facility]) [address] , [place], [address], 09/09/2022 11:23:40 09/09/20 22 09/09/2022 COMP METAB OLIC PANEL AST (SGOT) 16 U/L 0-37 Not Available [facility] ([facility]) [address], [place], [address], 09/09/2022 11:23:40 09/09/20 22 09/09/2022 COMP METAB OLIC PANEL ALT (SGPT) 22 U/L 0-65 Not Available [facility] ([facility]) [address], [place], [address], 09/09/2022 11:23:40 09/09/20 22 09/09/2022 COMP METAB OLIC PANEL alk phosphatase 108 U/L 46-116 Not Available [facility] ([facility]) [address], [place], [address], 09/09/2022 11:23:40 09/09/20 22 09/09/2022 PT (PROT HROMB IN TIME) W INR prothrombin time 10.1 secon ds 9.3-11 .4 Not Available [facility] ([facility]) [address], [place], [address], 09/09/2022 11:50:09 09/09/20 22 09/09/2022 PT (PROT [...] Mecha nical Heart Valve s Not Available [facility] ([facility]) [address] , [place], [address], 09/09/2022 11:50:09 09/09/20 22 09/10/2022 HCV RNA QUANT , RT-PC R [email or web address] HCV Not Detect ed IU/mL Not Available [facility] ([facility]) [address] , [place], [address], 09/10/2022 19:09:31 09/09/20 22 09/10/2022 HCV RNA QUANT , RT-PC R test information Commen t . The quant itati ve range of this assay is 15 IU/mL to 100 compa on IU/mL . Perfo rmed at: [facility] - [facility] [place] [address] [facility] [place] [address]32 Lab Direc tor: Genevieve silver MD, Phone : [phone] Not Available [facility] ([facility]) [address] , [place], [address], 09/10/2022 19:09:31 10/07/20 22 2022 CBC AUTO NO DIFF (HEMO GRAM) WBC 14.9 K/uL 4.0-10 .5 high Not Available [facility] ([facility]) [address] , [place], [address], 2022 13:42:55 10/07/20 22 2022 CBC AUTO NO DIFF (HEMO GRAM) RBC 5.4 M/mm3 4.7-6. 1 Not Available [facility] ([facility]) [address] , [place], [address], 2022 13:42:55 10/07/20 22 2022 CBC AUTO NO DIFF (HEMO GRAM) HGB 16.3 gm/dL 13.5-1 8.0 Not Available [facility] ([facility]) [address] , [place], [address], 2022 13:42:55 10/07/20 22 2022 CBC AUTO NO DIFF (HEMO GRAM) HCT 48.2 % 42.0-5 2.0 Not Available [facility] ([facility]) [address], [place], [address], 2022 13:42:55 10/07/20 22 2022 CBC AUTO NO DIFF (HEMO GRAM) MCV 88.6 fL 78-100 Not Available [facility] ([facility]) [address] , [place], [address], 2022 13:42:55 10/07/20 22 2022 CBC AUTO NO DIFF (HEMO GRAM) MCH 30.0 pg 27-31 Not Available [facility] ([facility]) [address] , [place], [address], 2022 13:42:55 10/07/20 22 2022 CBC AUTO NO DIFF (HEMO GRAM) MCHC 33.8 g/dL 32-36 Not Available [facility] ([facility]) [address], [place], [address], 2022 13:42:55 10/07/20 22 2022 CBC AUTO NO DIFF (HEMO GRAM) RDW 13.2 % 11.5-1 4.0 Not Available [facility] ([facility]) [address], [place], [address], 2022 13:42:55 10/07/20 22 2022 CBC AUTO NO DIFF (HEMO GRAM) platelet count 326 K/uL 150-45 0 Not Available [facility] ([facility]) [address], [place], [address], 2022 13:42:55 10/07/20 22 2022 CBC AUTO NO DIFF (HEMO GRAM) manual differential NO Not Available [facility] ([facility]) [address] , [place], [address], 2022 13:42:55 10/07/20 22 2022 COMP METAB OLIC PANEL sodium 138 mmol/ L 136-14 5 Not Available [facility] ([facility]) [address] , [place], [address], 2022 14:16:51 10/07/20 22 2022 COMP METAB OLIC PANEL potassium 4.2 mmol/ L 3.6-5. 0 Not Available [facility] ([facility]) [address] , [place], [address], 2022 14:16:51 10/07/20 22 2022 COMP METAB OLIC PANEL chloride 104 mmol/ L 98-107 Not Available [facility] ([facility]) [address] , [place], [address], 2022 14:16:51 10/07/20 22 2022 COMP METAB OLIC PANEL carbon dioxide 26.0 mmol/ L 21.0-3 2.0 Not Available [facility] ([facility]) [address] , [place], [address], 2022 14:16:51 10/07/20 22 2022 COMP METAB OLIC PANEL anion gap 12.2 Not Available [facility] ([facility]) [address], [place], [address], 2022 14:16:51 10/07/20 22 2022 COMP METAB OLIC PANEL glucose 116 mg/dL 70-120 Not Available [facility] ([facility]) [address] [place], [address], 2022 14:16:51 10/07/20 22 2022 COMP METAB OLIC PANEL BUN 8 mg/dL 7-18 Not Available [facility] ([facility]) [address], [place], [address], 2022 14:16:51 10/07/20 22 2022 COMP METAB OLIC PANEL creatinine 1.1 mg/dL 0.6-1. 3 Not Available [facility] ([facility]) [address] , [place], [address], 2022 14:16:51 10/07/20 22 2022 COMP METAB OLIC PANEL glomerular filtration rate >60 mlper min 60- Not Available [facility] ([facility]) [address] , [place], [address], 2022 14:16:51 10/07/20 22 2022 COMP METAB OLIC PANEL total protein 7.8 g/dL 6.4-8. 2 Not Available [facility] ([facility]) [address] , [place], [address], 2022 14:16:51 10/07/20 22 2022 COMP METAB OLIC PANEL albumin 3.6 g/dL 3.4-5. 0 Not Available [facility] ([facility]) [address] , [place], [address], 2022 14:16:51 10/07/20 22 2022 COMP METAB OLIC PANEL globulin 4.2 Not Available [facility] ([facility]) [address] , [place], [address], 2022 14:16:51 10/07/20 22 2022 COMP METAB OLIC PANEL alb/glob ratio 0.9 0.7-2 Not Available [facility] ([facility]) [address] , [place], [address], 2022 14:16:51 10/07/20 22 2022 COMP METAB OLIC PANEL calcium 9.3 mg/dL 8.5-10 .5 Not Available [facility] ([facility]) [address] , [place], [address], 2022 14:16:51 10/07/20 22 2022 COMP METAB OLIC PANEL bilirubin total 0.21 mg/dL 0.10-1 .00 Not Available [facility] ([facility]) [address], [place], [address], 2022 14:16:51 10/07/20 22 2022 COMP METAB OLIC PANEL AST (SGOT) 8 U/L 0-37 Not Available [facility] ([facility]) [address] , [place], [address], 2022 14:16:51 10/07/20 22 2022 COMP METAB OLIC PANEL ALT (SGPT) 24 U/L 0-65 Not Available [facility] ([facility]) [address] , [place], [address], 2022 14:16:51 10/07/20 22 2022 COMP METAB OLIC PANEL alk phosphatase 104 U/L 46-116 Not Available [facility] ([facility]) [address], [place], [address], 2022 14:16:51 10/07/20 22 2022 PT (PROT HROMB IN TIME) W INR prothrombin time 10.1 secon ds 9.3-11 .4 Not Available [facility] ([facility]) [address], [place], [address], 2022 14:22:22 10/07/20 22 2022 PT (PROT [...] Mecha nical Heart Valve s Not Available [facility] ([facility]) [address] , [place], [address], 2022 14:22:22 10/07/20 22 10/08/2022 HCV RNA BY PCR, QN RFX [place] HCV log 10 TNP log10 _IU/m L Unabl e to calcu late resul t since non-n umeri c resul t obtai tommie for compo nent test. Not Available [facility] ([facility]) [address], [place], [address], 10/08/2022 19:09:11 10/07/20 22 10/08/2022 HCV RNA BY PCR, QN RFX [place] test information Commen t . The quant itati ve range of this assay is 15 IU/mL to 100 compa on IU/mL . Not Available [facility] ([facility]) [address], [place], [address], 10/08/2022 19:09:11 10/07/20 22 10/08/2022 HCV RNA BY PCR, QN RFX [place] HCV genotype TNP Not indic ated Perfo rmed at: [facility] [place] [address] [place] [address] Lab Direc tor: Genevieve silver MD, Phone : [phone] Not Available [facility] ([facility]) [address], [place], [address], 10/08/2022 19:09:11 10/07/20 22 10/08/2022 HCV RNA BY PCR, QN RFX [place] [email or web address] HCV Not Detect ed IU/mL Not Available [facility] ([facility]) [address], [place], [address], 10/08/2022 19:09:11 Result Notes None recorded. 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 Active Connie Day null, [place] [facility] [place] 2 16:03:27 Flatulence , eructation and gas pain 276304778 Active Connie Day null, [place] [facility] [place] 2 16:03:27 Viral hepatitis C 44472505 Active Connie Day null, [place] - [facility] [place] 2 16:03:27 Biliary calculus 325945694 Active Connie Day null, [place] - [facility] [place] 2 16:03:27 Abdominal pain 67303666 Active Connie Day null, [place] - [facility] [place] 2 16:03:27 Helicobact er pylori-ass ociated gastritis 583919528 Active 2022 Michael Marinelli PA-C [address], [place], [address] , [place] - [facility] [place] 3 15:10:44 Problem Notes None recorded. Medical [...] Available Vitals Date Recorded Body weight Systolic And Diastolic Provider Name and Address Organization Details Last Updated DateTime 12/17/2022 508276.47 g 151/100 mm[Hg] Xenia RIVERA - [place] [facility] [place] 12/17/2022 13:42:40 Date Recorded Body weight Provider Name an d Address Organization Details Last Updated DateTime 08/12/2022 245634.21 g Xenia OZUNA [facility] [place] [facility] [place] 08/12/2022 11:07:52 Date Recorded Body weight Heart rate Systolic And Diastolic Provider Name and Address Organization Details Last Updated DateTime 09/09/2022 389069.43 g 86 /min 141/100 mm[Hg] Xenia OZUNA [facility] [place] [facility] [place] 09/09/2022 10:17:17 Social History None recorded. Functional [...] 4 completed Connie powers, [place] - [facility] [place] 10/02/2022 16:03:37 Td (adult), 5 Lf tetanus toxoid, preservative free, adsorbed 7 completed Connie powers, [place] - [facility] [place] 10/02/2022 16:03:37 Past Encounters Encounter ID Performer Location Encounter Start Date Encounter Closed Date Diagnosis/Indication Diagnosis SNOMED-CT Code Diagnosis ICD10 Code Diagnosis Note [id number] Mila Pedraza NP [facility] [address] [address] 08/12/2022 10:58:15 08/12/2022 11:20:42 Chronic hepatitis C 997787307 B18.2 -genotype 3, VL 1.9 M, F0-F1 by fibrosure. - Provided 1st 4 weeks of Mavyret- Counseled to avoid sharing toothbrush es, razors. etc. Must use barrier method when sexual encounter is unavoidabl e otherwise practice abstinence . [id number] Mila Pedraza NP [facility] [address] [address] 09/09/2022 10:03:50 09/09/2022 10:23:02 Chronic hepatitis C 805805763 B18.2 -genotype 3, VL 1.9 M, F0-F1 by fibrosure. - Provided 1st 4 weeks of Mavyret- Counseled to avoid sharing toothbrush es, razors. etc. Must use barrier method when sexual encounter is unavoidabl e otherwise practice abstinence . Viral hepatitis C 168465 07 B19.20 [id number] Mila Pedraza NP [facility] [address] [place] [address] 2022 12:50:14 2022 13:13:21 Abdominal pain 29530084 R10.9 - has upcoming cholecyste ctomy scheduled Chronic hepatitis C 1283 33482 B18.2 -genotype 3, VL 1.9 M, F0-F1 by fibrosure. - Will check for SVR in 3 months- Counseled to avoid sharing toothbrush es, razors. etc. Must use barrier method when sexual encounter is unavoidabl e otherwise practice abstinence . Viral hepatitis C 567826 07 B19.20 [id number] Michael Marinelli PA-C [facility] [address] [facility] [address] [place] [address] 12/17/2022 13:31:15 12/17/2022 14:24:10 Chronic hepatitis C 739685891 B18.2 Abdominal pain 22930326 R10.9 Helicobact er pylori-associated gastritis 180402669 B96.81 Health Concerns Section Related Observation LastModified by Organization Detai ls LastModified Time None Recorded Concern Status LastModified by Organization Details LastModified Time None Recorded Advance Directives Directive None Recorded Payers Insurance Date Sequence Insurance Name Policy Number Policy Charles Covered Member ID Charles Member ID Guarantor Name 12/14/2022 1 [facility] (MEDICAID HMO) Lukasz Camacho [id number] Lukasz Camacho Notes Date Note Type Note Provider Name and Address Organization Details Recorded Time 08/12/2022 text/html ROS as noted in the HPI PREVIOUS: Mr. 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 Denies nausea, vomiting, headache or fatigue. Denies diarrhea, constipation or hematachezia. Denies abdominal pain. Reports hx of gall stones and hernia; however, surgery has been delayed until Hep C is treated. Mila Pedraza NP [address] , [place], [address], [facility] 08/12/2022 13:15:00 09/09/2022 text/html ROS as noted in the HPI PREVIOUS: Mr. 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 Denies nausea, vomiting, headache or fatigue. [...] otherwise Mila Pedraza NP [address], [place], [address], [facility] & [place] 09/09/2022 10:23:34 2022 text/html ROS as noted in the HPI PREVIOUS: Mr. 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 Denies nausea, vomiting, headache or fatigue. [...] Denies nausea, vomiting, headache fatigue. Mila Pedraza, CLAM P[employer]ER [address] [facility], [place], [address], [place] - [place] - [place] 2022 13:21:49 12/17/2022 text/html ROS as noted in the HPI PREVIOUS: Mr. 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 Denies nausea, vomiting, headache or fatigue. [...] ensuring sustained viral remission. Michael Marinelli PA-C [address], [place], [address], [facility] [place] 12/17/2022 15:14:31
--- OUTSIDE RECORDS SUMMARY | 2025-05-04 14:52 | XMS_ITS | Clinical Summary ---
Author Organization [facility] Address [facility] [place] [address] Phone Care Team Providers Care Practical Nurse Clinical Coordinator Name Role Phone Unavailable Primary Care [...] original. Contracts- 01/23/16 Kita- 05/23/2016 Reference #: [id number] UDS- 05/23/2016 Suboxone 8/2 tabs approved 04/18/2016-07/19/2016 [...] for a week. Detox'ed off suboxone in correction. Has not been going to 12 steps. 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 Did go to [facility] and has follow up scheduled. Did not go to AA/NA. Reports that he used heroin once since last visit. Kita pagan. Counts unavailable. 02/13/16 Has not been to AA/NA. Will attempt this. Has appt with [facility] 02/19/16 Counts and kita pagan [...] not available. 01/30/16 Sees Mar Barcenas at [phone] At [employer] For counseling Does go to AA/NA president and chief operating officer Markel [phone] 01/23/16 HPI: Patient is interested in starting [...] has been to out patient treatment in [place]. Patient is currently in counseling with them. Patient has been to AA in the past, he does not like AA due to being around people. Consequences of drug use: Patient has been to correction due to drug use. 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 [...] Free Lifestyle No Alessia Valentine CCMA [facility] [place] [address] [place] [address]
--- OUTSIDE RECORDS SUMMARY | 2025-05-04 14:52 | XMS_ITS | Clinical Summary ---
Author Organization Healthcare Address [address] [place] [address] Care Team Providers Care Floor Tiling Professional Name Role Phone Kyle Moreno MD Primary Care Provider + [phone] Immunizations Immunization Administration Dates Next Due Hep [...] of Treatment Not on file Care Teams Floor Tiling Professional Relationship Specialty Start Date End Date Kyle Moreno MD [address] [place] [address] PCP - General 02/22/21
--- OUTSIDE RECORDS SUMMARY | 2025-05-04 14:52 | XMS_ITS | Clinical Summary ---
Author Organization [facility] Address [address] [place] [address], [address] [place] [address] Care Team Providers Care Break Up Worker Name Role Phone Unavailable Primary Care Provider [...] Plan of Treatment Not on file Insurance [facility] [place] [id number] [facility] Advance Directives * Full Code (Latest Code Status on File) Date Activated Date Inactivated Comments 11/29/2018 2:56 AM 12/01/2018 6:10 PM
== END 2025-05-03 23:59 | disposition home or self-care (01) ==
LOC: LAB.DROPOF 05-04 14:49
PROVIDERS: PCP Nurse Practitioner Family; Visit Provider Nurse Practitioner Family
DX: J44.9 Chronic obstructive pulmonary disease, unspecified (principal); R07.9 Chest pain, unspecified
CPT/HCPCS: 85025

== ENCOUNTER 2025-05-05 07:45 | Outpatient (CLI) | payer OTHER, SELFPAY ==
--- OUTSIDE RECORDS SUMMARY | 2025-05-05 07:47 | XMS_ITS | Clinical Summary ---
Author Organization [facility] Address [address] [place] [address], [address] [place] [address] Care Team Providers Care Track Sweeper Name Role Phone Unavailable Primary Care Provider [...] Plan of Treatment Not on file Insurance [facility] [place] Lozano [id number] AETNA [facility] Advance Directives * Full Code (Latest Code Status on File) Date Activated Date Inactivated Comments 11/29/2018 2:56 AM 12/01/2018 6:10 PM
--- OUTSIDE RECORDS SUMMARY | 2025-05-05 07:47 | XMS_ITS | Clinical Summary ---
Author Organization Healthcare Address [address] [place] [address] Care Team Providers Care Loss Prevention Detective Name Role Phone Kyle Moreno MD Primary Care Provider + [phone] Immunizations Immunization Administration Dates Next Due Hep [...] of Treatment Not on file Care Teams Loss Prevention Detective Relationship Specialty Start Date End Date Kyle Moreno MD [address] [place] [address] PCP - General 02/22/21
--- OUTSIDE RECORDS SUMMARY | 2025-05-05 07:48 | XMS_ITS | Clinical Summary ---
Author Organization [facility] Address [facility] [place] [address] Phone Care Team Providers Care Senior Logistics Manager Name Role Phone Unavailable Primary Care Provider [...] original. Contracts- 01/23/16 Kita- 05/23/2016 Reference #: [id number] UDS- 05/23/2016 Suboxone 8/2 tabs approved 04/18/2016-07/19/2016 [...] for a week. Detox'ed off suboxone in skilled nursing. Has not been going to 12 steps. 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 Did go to [facility] and has follow up scheduled. Did not go to AA/NA. Reports that he used heroin once since last visit. Kita pagan. Counts unavailable. 02/13/16 Has not been to AA/NA. Will attempt this. Has appt with [facility] 02/19/16 Counts and kita pagan 02/06/16 Had [...] not available. 01/30/16 Sees Mar Barcenas at [phone] At [email or web address] For counseling Does go to AA/NA chairman president and chief executive officer Markel [phone] 01/23/16 HPI: Patient is interested in starting [...] has been to out patient treatment in [place]. Patient is currently in counseling with them. Patient has been to AA in the past, he does not like AA due to being around people. Consequences of drug use: Patient has been to skilled nursing due to drug use. 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 [...] Free Lifestyle No Alessia Valentine CCMA Insurance [facility] [place] [address] [place] [address]
--- NOTE | 2025-05-05 08:00 | CA_ITS ---
APPROVED REPORT EXAM: Comprehensive 2D, Doppler, and color-flow Echocardiogram Solvent Station Attendant: Vale Schmitz RVT Ht: 5 ft 11 in Wt: 212lbs BSA: 2.16 BP: 100/72 mmHg Indications: Palpitations, Shortness of Breath 2D Dimensions LA Volume 32.90 mL LA Volume Index 15.23 mL/m2 (M/F) 16-34 M-Mode Dimensions RVDd 3.26 cm (0.9-2.6) LA Diam 4.06 cm (1.9-4.0) LVDd 4.74 cm (3.5-5.7) LVDs 3.04 cm (3.5-5.7) IVSd 0.99 cm (0.6-1.1) PWd 0.57 cm (0.6-1.1) EF (Teich) 65.30% FS 35.90% EDV (Teich) 104.40 mL TAPSE 2.56 (<1.7) ESV (Teich) 36.20 mL LV Diastology E Decel Time 227 (160-240 msec) E/A Ratio 1.2 Aortic Valve LETTY Index 1.44 cm2/m2 AoV Peak Alexis. 117.0 (50-130 cm/s) AO Peak GR. 5.50 mmHg AO Mean GR. 2.90 (<5 mmHg) AO VTI 23.9 (18-25 cm) LETTY (VTI) 3.18 (2.5-4.5 cm2) Mitral Valve MV E Max Alexis. 72.0 (40-130 cm/s) MV A Velocity 62.0 (40-130 cm/s) E/A Ratio 1.16 MV PHT 66.0 ms Pulmonary Valve PV Peak Velocity 62.0 (50-150 cm/s) Left Ventricle The left ventricle is normal size. The left ventricular systolic function is normal. The left ventricular ejection fraction is within the normal range. There is normal left ventricular wall thickness. There is normal LV segmental wall motion. The left ventricular diastolic function is normal. LVEF is 55%. Right Ventricle The right ventricle is normal size. The right ventricular systolic function is normal. Atria The left atrium size is normal. The right atrium size is normal. There is no Doppler evidence of interatrial shunt. Aortic Valve The aortic valve opens well. There is no aortic valvular stenosis. No aortic regurgitation is present. Mitral Valve The mitral valve is normal in structure. No evidence of mitral valve stenosis. No Mitral Regurgitation. Tricuspid Valve Tricuspid valve is grossly normal in structure and function. Trace tricuspid regurgitation. There is insufficient TR jet to estimate RVSP. Pulmonic Valve The pulmonary valve is normal in structure. Trace pulmonic regurgitation. Great Vessels The aortic root is normal in size. IVC is normal in size and collapses >50% with inspiration. Pericardium There is no pericardial effusion. Other Information Study Quality: Fair Conclusion Normal biventricular systolic function. No significant valvular stenosis or regurgitation. Electronically signed by : Sandra Moreland MD 05/09/2025 09:07:47
== END 2025-05-05 23:59 | disposition home or self-care (01) ==
LOC: RT 07:46
PROVIDERS: PCP Nurse Practitioner Family; Visit Provider Nurse Practitioner
DX: R94.31 Abnormal electrocardiogram [ECG] [EKG] (principal); R55 Syncope and collapse; R42 Dizziness and giddiness; R00.2 Palpitations; R06.09 Other forms of dyspnea; R06.02 Shortness of breath
CPT/HCPCS: 93306

== ENCOUNTER 2025-05-15 14:29 | Outpatient (POV) | payer OTHER, SELFPAY ==
--- OUTSIDE RECORDS SUMMARY | 2025-05-15 14:39 | XMS_ITS | Clinical Summary ---
Author Organization Healthcare Address [address] [place] [address] Care Team Providers Care Tiger Machine Operator Name Role Phone Kyle Moreno MD Primary Care Provider + [phone] Immunizations Immunization Administration Dates Next Due Hep [...] of Treatment Not on file Care Teams Tiger Machine Operator Relationship Specialty Start Date End Date Kyle Moreno MD [address] [place] [address] PCP - General 02/22/21
--- OUTSIDE RECORDS SUMMARY | 2025-05-15 14:39 | XMS_ITS | Clinical Summary ---
Author Organization [facility] Address [place] [address] Phone Care Team Providers Care Medicine Assistant Name Role Phone Unavailable Primary Care Provider [...] original. Contracts- 01/23/16 Kita- 05/23/2016 Reference #: [id number] UDS- 05/23/2016 Suboxone 8/2 tabs approved 04/18/2016-07/19/2016 [...] for a week. Detox'ed off suboxone in [facility]. Has not been going to 12 steps. 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 Did go to [facility] and has follow up scheduled. Did not go to AA/NA. Reports that he used heroin once since last visit. Kita pagan. Counts unavailable. 02/13/16 Has not been to AA/NA. Will attempt this. Has appt with [facility] 02/19/16 Counts and kita pagan [...] not available. 01/30/16 Sees Mar Barcenas at [phone] At [employer] For counseling Does go to AA/NA botanical technical officer Markel [phone] 01/23/16 HPI: Patient is interested in starting [...] has been to out patient treatment in [place]. Patient is currently in counseling with them. Patient has been to AA in the past, he does not like AA due to being around people. Consequences of drug use: Patient has been to fpc due to drug use. 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 [...] Free Lifestyle No Alessia Valentine CCMA Insurance [facility] [place] [address] [place] [address]
--- OUTSIDE RECORDS SUMMARY | 2025-05-15 14:39 | XMS_ITS | Clinical Summary ---
Author Organization [facility] Address [address] [place] [address], [address] [place] [address] Care Team Providers Care Solderer Assembler Name Role Phone Unavailable Primary Care Provider [...] on file Insurance [facility] [place] Lozano [id number] AETNA [facility] Advance Directives * Full Code (Latest Code Status on File) Date Activated Date Inactivated Comments 11/29/2018 2:56 AM 12/01/2018 6:10 PM
[2025-05-15 15:04] VITALS: BP 122/72; PULSE 85; RESP 14; O2SAT 97; BMI 29.5
--- NOTE | 2025-05-15 15:13 | EXP.PAIN.SOA ---
[facility] Disclaimer: The information contained in this section may have been updated after the patient was seen, as this information can be updated by other users. Medical History Other forms of dyspnea Outbursts of anger Pre-diabetes History of torsion of testis Vitamin D deficiency Surgical History History of laparoscopic cholecystectomy History of hernia repair Hx of esophagogastroduodenoscopy Family History Other No significant family history Social History Smoking Status: Current every day smoker tobacco type: cigarettes packs per day: 1 second hand exposure: No alcohol intake: current substance use type: former substance user, heroin, IV drugs and methamphetamine current occupational status: other Travel in the last 8 weeks?: None household members: family housing: house lives independently: Yes marital status: single caffeine: Yes special barrie needs: No agree to transfusion: No do you feel safe at home: Yes victim of physical abuse: No victim of emotional abuse: No victim of sexual abuse: No would you like helpful sources: No PM Subjective & Objective Subjective Subjective:: Patient is a pleasant 49-year-old male who presents today for 1 month follow-up. He rates his pain today as 6 out of 10. He denies any new trauma or injury. He does state that it is still that same pain he has had and been seen in our office for. He states he really has not done anything from our last appointment as he is having a lot of testing done to rule out cardiac issues. He does state that he has an upcoming stress test and that does have a cardiology follow-up around 25 May. He does state that they did actually put him on restrictions to wear even stating that they were not recommending him to drive. Patient was at our last visit sent in methocarbamol 750 mg 4 times a day. He does state that that did seem to work a little bit better then the baclofen. He denies any side effects. Patient does make mention that he does feel like he is a little bit more constipated. His Wilfredo has been reviewed and is appropriate. Review of Systems: General: No recent weight changes, no fever, no sleep disturbances Respiratory: No cough, no shortness of air, no recurring pulmonary infections Cardiovascular/peripheral vascular: No chest pain, no palpitations, no edema, no shortness of breath Gastrointestinal: No new onset incontinence, normal bowel movements reported Genitourinary: No new onset incontinence Musculoskeletal: Chronic back pain Psychiatric: [Normal mood/affect] Neurological: [Denies weakness in extremities], [denies balance issues] Pain at rest (0-10 scale): 6 Objective Objective:: Physical Exam: General: Alert and oriented x3, no acute distress, pleasant and cooperative Lungs: Respirations even and unlabored, symmetrical chest expansion Eyes: PERRL Musculoskeletal: Flexion and extension of lumbar [spine] somewhat guarded secondary to pain, [antalgic gait noted] Neurological: Speech clear, no gross sensory deficit Has patient had previous pain injection?: No Conservative treatment options previously tried: Home exercise plan Length of treatment: Longer than 12 weeks Meds Home Medications and Allergies Home Medications ?Medication ?Instructions ?Recorded ?Confirmed ?Type albuterol sulfate 90 mcg/actuation 2 puff inhalation Q8H PRN 01/20/25 05/15/25 Rx aerosol inhaler shortness of breath or wheezing #8.5 grams terbinafine HCl 1 % topical cream 1 applic topical BID 6 weeks #30 01/20/25 05/15/25 Rx grams clonidine HCl 0.2 mg tablet 0.2 mg PO TID #90 tabs 03/08/25 05/15/25 Rx lamotrigine 100 mg tablet 100 mg PO DAILY #30 tabs 03/08/25 05/15/25 Rx (Lamictal) ziprasidone HCl 40 mg capsule 40 mg PO BID #60 caps 03/08/25 05/15/25 Rx (Geodon) montelukast 10 mg tablet See Rx Instructions .Route 03/17/25 05/15/25 Rx .COMPLEX #90 tabs baclofen 10 mg tablet See Rx Instructions .Route 04/03/25 05/15/25 Rx .COMPLEX #90 tabs diclofenac sodium 75 mg 75 mg PO BID #60 tabs 04/12/25 05/15/25 Rx tablet,delayed release methocarbamol 750 mg tablet 750 mg PO QID #120 tabs 04/12/25 05/15/25 Rx rosuvastatin 40 mg tablet (Crestor) 40 mg PO DAILY #30 tabs 04/25/25 05/15/25 Rx celecoxib 50 mg capsule See Rx Instructions .Route 05/10/25 05/15/25 Rx .COMPLEX #180 caps New Prescriptions to Start Prescriptions: Allergies Allergy/AdvReac Type Severity Reaction Status Date / Time No Known Allergies Allergy Verified 05/03/25 10:42 Assessment and Plan *Assessment and plan (1) Low Back Pain: Status: Acute Category: Medical Code(s): M54.50 - Low back pain, unspecified Plan I did recommend for the patient to try MiraLAX that he can get [id number] to help with the constipation. Patient acknowledged understanding and agreed with this plan of care. I did discuss the possibility of injections in future however I do want to make sure that there is no contraindications with his ongoing testing. We will follow-up with him after his lead printer appointment. Patient will return to clinic in 6 weeks. Patient has been instructed to contact the clinic with any concerns before the next appointment. Dr. Gallo has reviewed this note and agrees with this plan of care. This note was dictated using voice recognition software and make contain errors or omissions. All injections are used with Lidocaine, Bupivacaine and dexamethasone. Occasionally urine drug screen is needed to verify patient's compliance with our office pain contract. This is ordered based off specific treatments related to chronic pain with the potential to abuse certain medications.
== END 2025-05-15 23:59 | disposition home or self-care (01) ==
LOC: SC.PAIN 14:31
PROVIDERS: PCP Nurse Practitioner Family; Visit Provider Nurse Practitioner Family
DX: M54.50 Low back pain, unspecified (principal); Z79.899 Other long term (current) drug therapy
CPT/HCPCS: 99212; G0463

== ENCOUNTER 2025-05-18 06:21 | Outpatient (CLI) | payer OTHER, SELFPAY ==
--- NOTE | 2025-05-18 | CA_ITS ---
APPROVED REPORT Exam: Pharmacologic Technologist: Fernanda Frederick Ht: 5 ft 11 in Wt: 212 lbs BSA: 2.16 m2 Medical History Medications: albuterol, baclofen, celecoxib, clonidine HCI, diclofenac sodium, lamotngine, methocarbamol, montekulast, terbinafine HCTZ, ziprasidone HCI. Stress Test Details Test: Lexiscmitch Reason for pharmacologic stress test: physical limitation. HR Resting HR: 58 bpm Max Heart Rate (APMHR): 169 bpm Max HR Achieved: 95 bpm Target HR (85% APMHR): 144 bpm % of APMHR: 56 Recovery HR: 73 bpm BP Resting BP: 119.0/76.0 mmHg Max BP: 131.0/86.0 mmHg Recovery BP: 130.0/82.0 mmHg ECG Resting ECG: SR no ectopy. Stress ECG Conclusion Symptoms: None. Arrhythmias/Ectopy: None. ST-T Changes: None. Electronically signed by : Sandra Moreland MD 05/18/2025 10:36:18
--- OUTSIDE RECORDS SUMMARY | 2025-05-18 06:22 | XMS_ITS | Clinical Summary ---
Author Organization Healthcare Address [address] [place] [address] Care Team Providers Care Water/Wastewater Project Engineer Name Role Phone Kyle Moreno MD Primary Care Provider + [phone] Immunizations Immunization Administration Dates Next Due Hep [...] of Treatment Not on file Care Teams Water/Wastewater Project Engineer Relationship Specialty Start Date End Date Kyle Moreno MD [address] [place] [address] PCP - General 02/22/21
--- OUTSIDE RECORDS SUMMARY | 2025-05-18 06:22 | XMS_ITS | Clinical Summary ---
Author Organization [facility] Address [facility] [address] [facility] [place] [address] Phone Care Team Providers Care Truck Switcher Name Role Phone Unavailable Primary Care Provider [...] original. 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 Did go to [facility] and has follow up scheduled. Did not go to AA/NA. Reports that he used heroin once since last visit. Kita pagan. Counts unavailable. 02/13/16 Has not been to AA/NA. Will attempt this. Has appt with [facility] 02/19/16 Counts and kita pagan [...] not available. 01/30/16 Sees Mar Barcenas at [phone] At [employer] For counseling Does go to AA/NA commercial escrow officer Markel [phone] 01/23/16 HPI: Patient is interested in starting [...] has been to out patient treatment in [place]. Patient is currently in counseling with them. 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 [...] Free Lifestyle No Alessia Valentine CCMA Insurance [facility] [place] [address] [place] [address]
--- OUTSIDE RECORDS SUMMARY | 2025-05-18 06:22 | XMS_ITS | Clinical Summary ---
Author Organization [facility] Address [address] [place] [address], [address] [place] [address] Care Team Providers Care Interface Designer Name Role Phone Unavailable Primary Care Provider [...] Plan of Treatment Not on file Insurance [facility] [place] Lozano [id number] AETNA [facility] Advance Directives * Full Code (Latest Code Status on File) Date Activated Date Inactivated Comments 11/29/2018 2:56 AM 12/01/2018 6:10 PM
--- NOTE | 2025-05-18 06:30 | NM_ITS ---
APPROVED REPORT Exam: Nuclear Stress Test Indication: soa..fatigue Patient Location: Outpatient Stress Tech: Fernanda Foote [place] Tech:Alessia Bertrand REESEKizzy RT(R)(N) Ht: 5 ft 11 in Wt: 215 lbs HR: 60 bpm BP: 119/76 mmHg BSA: 2.17 m2 TID: 1.12 BMI: 29.9 History: soa..fatigue Procedure: Patient received 0.4 mg of intravenous Lexiscan, resting heart rate 100 bpm, resting blood pressure 119/76 mmHg, with Lexiscan maximum heart rate achieved was 100 bpm which is 85 % of the maximum predicted heart rate and blood pressure was 126/78 mmHg. With Lexiscan, patient denied any complaint of chest pain. Cardiac Stress and Resting SPECT Images: Cardiac Stress and Resting SPECT images were obtained using technetium 99m Myoview 30.2 mCi stress and 10.98 mCi at rest. Resting and stress imaging in supine and prone positions demonstrate a medium sized, moderate, partially reversible perfusion defect in the basal to mid inferior and lateral LV frias. Gated imaging demonstrates mild reduction in global LV systolic function. LVEF is calculated at 47%. Conclusion: Medium sized, moderate, partially reversible perfusion defect in the basal to mid inferior and lateral LV frias. Findings are suggestive of partial reversible ischemia. Gated imaging demonstrates mild reduction in global LV systolic function. LVEF is calculated at 47%. Electronically signed by : Sandra Moreland MD 05/19/2025 09:39:06
[2025-05-18] MEDS: SODIUM CHLORIDE 0.9% 10ML SYR (RAD ONLY) 10 ML IV ×2 (09:46)
[2025-05-18] MEDS: ISOTOPE MYOVIEW (PER STUDY) 1 DOSE IV (09:46)
== END 2025-05-18 23:59 | disposition home or self-care (01) ==
LOC: RAD 06:21
PROVIDERS: PCP Nurse Practitioner Family; Visit Provider Nurse Practitioner
DX: R94.39 Abnormal result of other cardiovascular function study (principal); R94.31 Abnormal electrocardiogram [ECG] [EKG]; R55 Syncope and collapse; R42 Dizziness and giddiness; R00.2 Palpitations; R06.09 Other forms of dyspnea; R53.83 Other fatigue; R06.02 Shortness of breath
CPT/HCPCS: 78452; 93016; 93017; 93018; A9502; J2785

== ENCOUNTER 2025-07-14 08:08 | Day surgery (SDC) | payer OTHER, SELFPAY ==
[2025-07-14] VITALS (13 sets, daily range): BP systolic 97–125; BP diastolic 58–84; PULSE 48–98; RESP 16–18; TEMP 36.9; O2SAT 93–100; BMI 29.2
--- NOTE | 2025-07-14 07:32 | IR_ITS ---
APPROVED REPORT Patient Location: Outpatient PROCEDURES Left heart catheterization Left ventriculogram Selective coronary angiogram INDICATION Abnormal Myoview, Angina pectoris Informed consent was obtained prior to the procedure. COMPLICATIONS none Estimated Blood Loss: less than 10ml TECHNIQUE One percent lidocaine used to anesthetize the right anterior aspect of the wrist. The right radial artery was accessed via the Seldinger technique. A 6 Romansh sheath was placed in the right radial artery. 2.5 mg of Verapamil, 800 mcg of nitroglycerin, 1mg Lidocaine and 5000 U Heparin were given through the arterial sheath. The JL3 catheter was also used to perform left heart catheterization, left ventriculogram and selective coronary angiogram. At the end of the procedure the sheath was removed good hemostasis was achieved using Traclet band, patient was transferred to the postop holding area in stable condition. ANGIOGRAPHIC RESULTS The left main artery Normal The left anterior descending artery Is approximately normal with a mid vessel 40% concentric stenosis. A small to medium first diagonal artery has a mid vessel 40% stenosis while the larger second diagonal artery has a proximal concentric 40% stenosis The circumflex artery Nondominant and occluded at mid vessel which fills via right to left collaterals The right coronary artery Large dominant with mid vessel 30 to 40% stenosis in distal 20 and 30% stenosis The CONN ventriculogram reveals Normal 60% The left ventricular end-diastolic pressure 10 mmHg IMPRESSION Moderate disease in the LAD and diagonal artery system as described above Proximal occluded circumflex artery which fills via right to left collaterals Mild to moderate disease throughout the dominant right coronary Normal ejection fraction , LVEDP PLAN 1. Medical management with risk factor modification Electronically signed by : Lit Ospina MD 07/14/2025 09:47:35
[2025-07-14 08:30] LABS: Hematocrit 44.9 % (42.0-52.0); Hemoglobin 15.5 g/dL (14.1-18.0); Immature Granulocytes % 0.7 %; Mean Corpuscular HGB Conc 34.5 g/dL (31.8-35.4); Mean Corpuscular Hemoglobin 30.5 pg (27.0-31.2); Mean Corpuscular Volume 88.4 fl (80-94); Nucleated Red Blood Cells % 0 %; Platelet Count 282 K/mm3 (142-424); Red Blood Count 5.08 M/mm3 (4.60-6.20); Red Cell Distribution Width-SD 41.5 fL; White Blood Count 16.7 K/mm3 (4.8-10.8)
[2025-07-14 08:36] LABS: Chloride 101 mmol/L (98-107)
[2025-07-14 08:37] LABS: Potassium 4.0 mmoL/L (3.5-5.1); Sodium 137 mmol/L (136-145)
[2025-07-14 08:40] LABS: Anion Gap 12.0 mEq/L (5-15); Blood Urea Nitrogen 12 mg/dl (9-20); Calcium 9.4 mg/dl (8.4-10.2); Carbon Dioxide 28 mmol/L (22.0-30.0); Creatinine Clearance Estimated 118 mL/min (50-200); Creatinine,Serum 1.00 mg/dl (0.66-1.25); Estimated Glomerular Filt Rate 79 ml/min (>60); GFR (African American) 95 ML/MIN (>60); Glucose 145 mg/dl (74-100)
[2025-07-14] MEDS: LIDOCAINE 1% 10ML MDV 10 ML IJ (09:15)
[2025-07-14] MEDS: HEPARIN 1,000 UNITS/500ML NS (CATH LAB) 3000 UNIT IV (09:15)
[2025-07-14] MEDS: 0.9 % SODIUM CHLORIDE 500 ML 25 ML IV (09:15)
[2025-07-14] MEDS: HEPARIN 1,000 UNITS/ML 10ML VIAL (CATH LAB) 5000 UNIT IV (09:15)
[2025-07-14] MEDS: NITROGLYCERIN 800MCG/8ML SYR (CATH LAB) 800 MCG IA (09:15)
[2025-07-14] MEDS: VERAPAMIL 2.5MG/ML 2ML VIAL 2.5 MG IV (09:16)
[2025-07-14] MEDS: MIDAZOLAM HCL 1MG/ML 5ML VIAL 1 MG IV (09:32)
[2025-07-14] MEDS: FENTANYL 100MCG/2ML VIAL 50 MCG IV (09:32)
[2025-07-14] MEDS: IOPAMIDOL-370 (76%);100ML BOTTLE 50 ML IV (10:38)
== END 2025-07-14 12:44 | disposition home or self-care (01) ==
PROVIDERS: PCP Nurse Practitioner Family; Visit Provider Internal Medicine
PROC: 4A023N7 Measurement of Cardiac Sampling and Pressure, Left Heart, Percutaneous Approach (ICD-10-PCS; CPT 93452; principal; 2025-07-14 08:30)
DX: I25.119 Atherosclerotic heart disease of native coronary artery with unspecified angina pectoris (principal); R93.1 Abnormal findings on diagnostic imaging of heart and coronary circulation; R94.31 Abnormal electrocardiogram [ECG] [EKG]; R00.2 Palpitations; R07.9 Chest pain, unspecified; R06.09 Other forms of dyspnea; E78.5 Hyperlipidemia, unspecified; J44.9 Chronic obstructive pulmonary disease, unspecified; R55 Syncope and collapse; R51.9 Headache, unspecified; G89.29 Other chronic pain; D72.829 Elevated white blood cell count, unspecified; F17.210 Nicotine dependence, cigarettes, uncomplicated; Z79.82 Long term (current) use of aspirin; Z79.899 Other long term (current) drug therapy
CPT/HCPCS: 80048; 85025; 93458; 99152; C1725; C1769; J1200; J1644; J2003; J3010; J7040; Q9967

== ENCOUNTER 2025-07-20 11:39 | Outpatient (CLI) | payer OTHER, SELFPAY ==
[2025-07-20 12:48] LABS: Hematocrit 48.2 % (42.0-52.0); Hemoglobin 16.5 g/dL (14.1-18.0); Immature Granulocytes % 0.6 %; Mean Corpuscular HGB Conc 34.2 g/dL (31.8-35.4); Mean Corpuscular Hemoglobin 30.5 pg (27.0-31.2); Mean Corpuscular Volume 89.1 fl (80-94); Nucleated Red Blood Cells % 0 %; Platelet Count 296 K/mm3 (142-424); Red Blood Count 5.41 M/mm3 (4.60-6.20); Red Cell Distribution Width-SD 42.5 fL; White Blood Count 14.8 K/mm3 (4.8-10.8)
[2025-07-20 13:06] LABS: Hemoglobin A1C 5.5 % (4.0-6.0)
[2025-07-20 13:24] LABS: Alanine Aminotransferase 29 U/L (12-78); Albumin Level 4.6 g/dl (3.5-5.0); Alkaline Phosphatase 95 U/L (38-126); Anion Gap 13.6 mEq/L (5-15); Aspartate Amino Transferase 30 U/L (17-59); Bilirubin,Direct 0.4 mg/dl (0.0-0.4); Bilirubin,Indirect 0.2 mg/dL (0.0-0.9); Bilirubin,Total 0.6 mg/dl (0.2-1.3); Bilirubin,Unconjugated 0.2 mg/dL (0.0-1.1); Blood Urea Nitrogen 10 mg/dl (9-20); Calcium 9.6 mg/dl (8.4-10.2); Carbon Dioxide 28 mmol/L (22.0-30.0); Chloride 103 mmol/L (98-107); Cholesterol 128 mg/dl (140-200); Creatinine,Serum 0.90 mg/dl (0.66-1.25); Estimated Glomerular Filt Rate 89 ml/min (>60); GFR (African American) 108 ML/MIN (>60); Glucose 143 mg/dl (74-100); HDL Cholesterol 27 mg/dl (40-60); Magnesium 2.4 mg/dl (1.6-2.3); Potassium 4.6 mmoL/L (3.5-5.1); Sodium 140 mmol/L (136-145); Total Protein,Serum 7.1 g/dl (6.3-8.2); Triglycerides 281 mg/dl (30-150)
[2025-07-20 13:42] LABS: Free T4 (Free Thyroxine) 1.23 ng/dl (0.78-2.19)
[2025-07-20 13:56] LABS: Thyroid Stimulating Hormone 0.48 uIU/mL (0.465-4.68)
== END 2025-07-20 23:59 | disposition home or self-care (01) ==
LOC: LAB 11:40
PROVIDERS: PCP Nurse Practitioner Family; Visit Provider Physician Assistant
DX: I25.10 Atherosclerotic heart disease of native coronary artery without angina pectoris (principal); E78.5 Hyperlipidemia, unspecified; R73.09 Other abnormal glucose
CPT/HCPCS: 36415; 80048; 80061; 80076; 83036; 83735; 84439; 84443; 85025

== ENCOUNTER 2025-09-18 13:31 | Outpatient (CLI) | payer OTHER, SELFPAY ==
--- NOTE | 2025-09-18 13:30 | CT_ITS ---
FINAL REPORT TECHNIQUE: Thin section axial images were obtained from the lung apices to the upper abdomen by computed tomography. Reformatted images were obtained and reviewed. This study was performed with techniques to keep radiation doses al low as reasonably achievable (ALARA). Individualized dose reduction techniques using automated exposure control or adjustment of mA and/or kV according to the patient's size were employed. CLINICAL HISTORY: .current smoker 1ppd x40 years COMPARISON: None FINDINGS: CHEST CT LOW DOSE 50-year-old male, current smoker, [id number]-rafr history. CTDI vol (mGy): 2.90 DLP (mGy-cm): 96.38 There is no axillary adenopathy. There is no mediastinal or hilar mass or adenopathy. The heart is normal in size. There is no pericardial or pleural effusion. There is mild emphysema and mild pulmonary scarring. Lung window images demonstrate no suspicious infiltrate or nodule. Limited images of the upper abdomen are unremarkable. IMPRESSION: Lung-RADS category 1. Recommend 12 month follow up low dose chest CT. Reviewed, Interpreted and Dictated by Augusto Mabry MD Transcribed by Latrice Marinelli Authenticated and [facility]
[2025-09-18 15:20] VITALS: PULSE 65; PULSE 72
[2025-09-18] MEDS: ALBUTEROL 0.083% 2.5 MG/3 ML NEB IH (15:20)
== END 2025-09-18 23:59 | disposition home or self-care (01) ==
PROVIDERS: PCP Nurse Practitioner Family; Visit Provider Internal Medicine Pulmonary Disease
DX: R94.2 Abnormal results of pulmonary function studies (principal); R06.02 Shortness of breath; R06.09 Other forms of dyspnea; F17.210 Nicotine dependence, cigarettes, uncomplicated; Z12.2 Encounter for screening for malignant neoplasm of respiratory organs
CPT/HCPCS: 71271; 94060; 94618; 94640; 94726; 94729